=== PATIENT | female | born 1945 | race Caucasian/White ===

== ENCOUNTER → 2019-11-19 09:28 | Outpatient (BNVA) | payer MEDICARE, MEDICAID, SELFPAY | PROVIDERS: Family Provider Family Medicine; PCP Family Medicine; Visit Provider Nurse Practitioner | DX: F41.1 Generalized anxiety disorder (principal); F20.89 Other schizophrenia; F34.1 Dysthymic disorder | CPT/HCPCS: 99213 ==

== ENCOUNTER 2020-01-14 10:36 | Outpatient (CLI) | payer MEDICARE, MEDICAID, SELFPAY | END 2020-01-14 10:37 | disposition home or self-care (01) | LOC: SPT 10:37 | PROVIDERS: Family Provider Family Medicine; PCP Family Medicine; Visit Provider Orthopaedic Surgery | DX: Z46.89 Encounter for fitting and adjustment of other specified devices (principal); M17.12 Unilateral primary osteoarthritis, left knee | CPT/HCPCS: L1812 ==

== ENCOUNTER → 2020-02-23 07:39 | Outpatient (BNVA) | payer MEDICARE, MEDICAID, SELFPAY | PROVIDERS: Family Provider Family Medicine; PCP Family Medicine; Visit Provider Nurse Practitioner | DX: F41.1 Generalized anxiety disorder (principal); F34.1 Dysthymic disorder; F20.89 Other schizophrenia | CPT/HCPCS: 99213 ==

== ENCOUNTER → 2020-05-26 08:42 | Outpatient (BNVA) | payer MEDICARE, MEDICAID, SELFPAY | PROVIDERS: Family Provider Family Medicine; PCP Family Medicine; Visit Provider Nurse Practitioner | DX: F34.1 Dysthymic disorder (principal); F20.89 Other schizophrenia; F41.1 Generalized anxiety disorder; F90.2 Attention-deficit hyperactivity disorder, combined type | CPT/HCPCS: 99213 ==

== ENCOUNTER → 2020-06-21 07:53 | Outpatient (BNVA) | payer MEDICARE, MEDICAID, SELFPAY | PROVIDERS: Family Provider Family Medicine; PCP Family Medicine; Visit Provider Nurse Practitioner | DX: F34.1 Dysthymic disorder (principal); F20.89 Other schizophrenia; F41.1 Generalized anxiety disorder | CPT/HCPCS: 99213 ==

== ENCOUNTER → 2020-10-08 10:03 | Outpatient (BNVA) | payer MEDICARE, MEDICAID, SELFPAY | PROVIDERS: Family Provider Family Medicine; PCP Family Medicine; Visit Provider Nurse Practitioner | DX: F41.1 Generalized anxiety disorder (principal); F20.89 Other schizophrenia; F34.1 Dysthymic disorder | CPT/HCPCS: 99214 ==

== ENCOUNTER → 2020-11-10 10:18 | Outpatient (BNVA) | payer MEDICARE, MEDICAID, SELFPAY | PROVIDERS: Family Provider Family Medicine; PCP Family Medicine; Visit Provider Nurse Practitioner | DX: F41.1 Generalized anxiety disorder (principal); F20.89 Other schizophrenia; F34.1 Dysthymic disorder | CPT/HCPCS: 99214 ==

== ENCOUNTER 2020-11-23 15:23 | Outpatient (CLI) | payer MEDICARE, MEDICAID, SELFPAY ==
--- NOTE | 2020-11-23 | USCV_ITS ---
Muriel Agarwal Age: 75 Gender: F : 1945 Exam Date: 11/23/2020 16:00 Ordering Phys: Hilda Darby MD Technologist: Charissa Cameron Exam Location: [facility] [place] Indication: CHF BP: / HR: 93 Rhythm: Sinus Technical Quality: Poor secondary to COPD MEASUREMENTS (Male / Female) Normal Values 2D ECHO LVOT Diameter 2.0 cm LV Ejection Fraction MOD 2C 36.9 % LV Ejection Fraction 2C AL 32.9 % LA Diameter 3.0 cm M-MODE LV Diastolic Diameter MM 5.3 cm 4.2 - 5.9 / 3.9 - 5.3 cm IVS Diastolic Thickness MM 1.4 cm 0.6 - 1.0 / 0.6 - 0.9 cm LVPW Diastolic Thickness MM 2.2 cm 0.6 - 1.0 / 0.6 - 0.9 cm DOPPLER AV Peak Velocity 110.0 cm/s LVOT Peak Velocity 77.0 cm/s AV Area Cont Eq vti 2.4 cm squared AV Area Cont Eq pk 2.3 cm squared MV Area PHT 5.0 cm squared Mitral E to A Ratio 0.7 MV E' Velocity 36.5 cm/s Mitral E to MV E' Ratio 11.3 Mitral E to LV E' Lateral Ratio 11.1 Mitral E to LV E' Septal Ratio 11.7 FINDINGS Left Ventricle Normal LV size with borderline normal ejection fraction of 50 to 55%. Relative hypokinesia of the septum was noted. Segmental wall motion analysis difficult because of the poor ultrasonic window. Grade I/IV diastolic dysfunction (abnormal relaxation filling pattern), normal to mildly elevated filling pressures. Right Ventricle The right ventricle appears to be of normal size. Possibly normal right ventricular ejection fraction right atrium possibly of normal size. Right Atrium Possibly of normal size Left Atrium Possibly of normal Mitral Valve Thickened mitral valve. Mild mitral annular calcification. Aortic Valve The aortic leaflets could not be visualized well. Possibly no significant stenosis Tricuspid Valve Could not be visualized well Pulmonic Valve Pulmonic valve not well visualized. Pericardium No pericardial effusion. Aorta Normal aortic annulus size. CONCLUSIONS Normal LV size with borderline normal ejection fraction of 50 to 55%. Relative hypokinesia of the septum was noted. Segmental wall motion analysis difficult because of the poor ultrasonic window. Grade I/IV diastolic dysfunction (abnormal relaxation filling pattern), normal to mildly elevated filling pressures. Thickened mitral valve. Mild mitral annular calcification. The aortic leaflets could not be visualized well. Possibly no significant stenosis. There is no pericardial effusion. Technically difficult study because of the poor ultrasonic window. No previous study is available for comparison. Dr Elton Alves MD [facility] (Electronically Signed) Final Date: 23 November 2020 20:21 S
== END 2020-11-23 15:24 | disposition home or self-care (01) ==
LOC: RAD 15:29
PROVIDERS: PCP Family Medicine; Visit Provider Internal Medicine Critical Care Medicine
DX: I50.9 Heart failure, unspecified (principal); I05.9 Rheumatic mitral valve disease, unspecified
CPT/HCPCS: 93306

== ENCOUNTER → 2020-12-07 07:40 | Outpatient (BNVA) | payer MEDICARE, MEDICAID, SELFPAY | PROVIDERS: PCP Family Medicine; Visit Provider Nurse Practitioner | DX: F20.89 Other schizophrenia (principal); F41.1 Generalized anxiety disorder; F34.1 Dysthymic disorder | CPT/HCPCS: 99214 ==

== ENCOUNTER 2021-01-27 19:50 | Inpatient (IN) | payer MEDICARE, MEDICAID, SELFPAY ==
[2021-01-27] VITALS (7 sets, daily range): BP systolic 145–175; BP diastolic 84–96; PULSE 70–93; RESP 16–24; TEMP 36.7; O2SAT 92–96; BMI 38.7
--- NOTE | 2021-01-27 20:18 | XRR_ITS ---
PROCEDURE INFORMATION: Exam: XR Chest Exam date and time: 01/27/2021 8:25 PM Age: 75 years old Clinical indication: Cough and shortness of breath; Additional info: Copd/wheezing TECHNIQUE: Imaging protocol: XR of the chest. Views: 1 view. COMPARISON: No relevant prior studies available. FINDINGS: Lungs: Right infrahilar opacity is noted which may be early pneumonia. Pleural spaces: The left costophrenic angle is partially excluded from the field of view. No pleural effusion or pneumothorax is visualized. Heart/Mediastinum: Unremarkable. No cardiomegaly. Bones/joints: Unremarkable. XR/XR chest 1V portable [id number] IMPRESSION: Possible early right lower lobe pneumonia.
[2021-01-27 20:31] LABS: Basophils % 0.4 %; Eosinophils % 0.4 %; Hematocrit 38.6 % (37.0-47.0); Hemoglobin 13.2 g/dL (11.5-15.3); Lymphocytes # 1.1 10^3/uL (0.8-4.8); Lymphocytes % 12.8 %; Mean Corpuscular HGB Conc 34.2 g/dL (30.0-36.0); Mean Corpuscular Hemoglobin 28.8 pg (28.0-34.0); Mean Corpuscular Volume 84.1 fL (81-99); Mean Platelet Volume 9.1 fL (7.4-10.4); Monocytes # 0.5 10^3/uL (0.2-0.9); Monocytes % 6.3 %; Neutrophils % 79.7 %; Nucleated Red Blood Cells % 0 %; Platelet Count 256 10^3/cmm (130-400); Red Blood Count 4.59 10^6/uL (4.1-5.3); Red Cell Distribution Width 13.8 % (12.1-15.1); White Blood Count 8.5 10^3/uL (4.0-10.0)
[2021-01-27 20:58] LABS: Alanine Aminotransferase 26 U/L (0-33); Albumin Level 3.8 g/dL (3.5-5.2); Alkaline Phosphatase 176 IU/L (35-105); Blood Urea Nitrogen 6 mg/dL (8-23); Calcium 8.5 mg/dL (8.5-10.5); Carbon Dioxide 27 mmol/L (22-29); Chloride 83 mmol/L (98-107); Globulin 2.8 g/dL (1.3-4.6); Glucose 136 mg/dL (65-115); NT Pro B Type Natriuretic Pept 248 pg/mL (0-450); Osmolality Calculated 248 mOsm/kg (285-295); Total Bilirubin 0.3 mg/dL (0.15-1.2); Total Protein 6.6 g/dL (6.6-8.7)
[2021-01-27 21:00] LABS: Anion Gap 13.4 (5-19); Aspartate Amino Transferase 21 U/L (0-32); Potassium 4.4 mmol/L (3.5-5.1)
[2021-01-27 21:01] LABS: Sodium 119 mmol/L (136-145)
--- NOTE | 2021-01-27 21:08 | CTR_ITS ---
PROCEDURE INFORMATION: Exam: CT Head Without Contrast Exam date and time: 01/27/2021 9:09 PM Age: 75 years old Clinical indication: Altered mental status/memory loss; Patient HX: AMS. Hyponatremic. ; Additional info: Hyponatremia TECHNIQUE: Imaging protocol: Computed tomography of the head without contrast. Radiation optimization: All CT scans at this facility use at least one of these dose optimization techniques: automated exposure control; mA and/or kV adjustment per patient size (includes targeted exams where dose is matched to clinical indication); or iterative reconstruction. COMPARISON: CT head wo con* [id number] 10/07/2017 3:05 AM RADIATION DOSE METRICS: Total DLP (mGy-cm): 926.44 FINDINGS: Brain: Mild atrophy and mild white matter chronic microvascular changes are noted. No hemorrhage or evidence of acute infarction is seen. Cerebral ventricles: No ventriculomegaly. Bones/joints: Unremarkable. No acute fracture. Paranasal sinuses: Left maxillary sinusitis is noted. Mastoid air cells: Visualized mastoid air cells are well aerated. Soft tissues: Unremarkable. Other findings: Bilateral orbital veins are distended, which is nonspecific. The carotid siphons a calcified. No cavernous sinus abnormality is visualized CT/CT head wo con* [id number] IMPRESSION: No fracture acute intracranial abnormality. Mild sinusitis. Radiation Dose CTDIVOL = (mGy): DLP = 926.44 (mGy-cm)
--- NOTE | 2021-01-27 21:23 | PC.NURSE ---
patient states she refuses all care at this time stating she believes we are trying to kill her and that we just want her gone . patient is mildly agitated and refuses blood draws and medication administration from nurse. HCP informed of situation with patient.
--- NOTE | 2021-01-27 21:25 | PC.NURSE ---
patient refuses to give nurse urine sample at this time.
[2021-01-27] MEDS: ziprasidone 20 mg/mL SDV 10 MG IM (22:41)
[2021-01-27] MEDS: water for injection-sterile 10 ML (22:42)
--- NOTE | 2021-01-27 23:14 | W.ED.GENADLT ---
HPI - General Adult General: Chief complaint: General Medical Stated complaint: ABNORMAL LABS Time Seen by Provider: 01/27/21 20:08 History of Present Illness: HPI narrative: The patient is a 75-year-old female sent from [place] for evaluation of abnormal labs. They were called by her primary care physician and told that she had hyponatremia. In her paperwork on January 20 her sodium was 123. She initially allowed us to draw blood which reveals a sodium of 119. She has a history of paranoid schizophrenia and is telling us that we are not doctors or nurses and this is not a hospital. She is delirious and acting bizarrely. I believe she is not competent to make her own medical decisions. I discussed with Dr. De León who agrees Severity: severe Associated symptoms: Reports no associated symptoms and dyspnea (Chronic short of breath); Deny chest pain, confusion, headache(s), rash or palpitations Review of Systems General: Reports: 10 or more systems reviewed and unremarkable except in HPI and below Const: Denies: fatigue Eyes: Denies: change in vision, blurry vision or eye redness ENMT: Denies: throat pain, swelling of lips/tongue, ear or mastoid pain or nasal congestion Card: Denies: chest pain, palpitations, irregular heart rhythm, edema, dyspnea on exertion or orthopnea Resp: Reports: dyspnea (Chronic short of breath) and wheezing; Denies: productive cough or non-productive cough GI: Denies: abdominal pain, diarrhea or GI cramping : Denies: flank pain, difficulty voiding, urinary frequency or urinary urgency Musc: Denies: neck pain, back pain, extremity pain, joint pain, joint redness, limited range of motion or muscle weakness Skin/Breast: Denies: rash, pruritus, erythema, skin pain or skin tenderness Neuro: Denies: headache(s), numbness in extremities, weakness in extremities, sensory changes, difficulty walking, dizziness, confusion or Slurred speech present Psych: Denies: anxiety or depression Endo: Denies: polyuria All/Imm: Denies: urticaria, throat swelling or tongue swelling PFSH ED PFSH: Medical History (Updated 02/02/21 @ 00:01 by ) Age related osteoporosis Bipolar 1 disorder Chronic hyponatremia COPD (chronic obstructive pulmonary disease) Degenerative arthritis of knee Dysphagia Dysthymic disorder Generalized anxiety disorder Neuritis Other schizophrenia Schizophrenia Social History Smoking and tobacco status: former smoker Quit status (tobacco): has quit using tobacco Year quit tobacco: 2004 Former quit date comment: 0.5 ppd x 45 Years Second hand smoke exposure: Yes Smoking risk assessment/counseling performed?: No Alcohol intake: never Desire information about alcohol rehabilitation?: No Counseling given: No Desire information about substance/drug rehabilitation?: No Counseling given: No Caregiver/support person: Yes Lives independently: No Housing: Group Home Marital status: Unknown Current occupational status: retired History of recent travel: No Current gender identity: Female Physical Exam Const: COMMON NORMALS: patient oriented x3 and alert ORIENTATION/CONSCIOUSNESS: Yes oriented to person and Yes oriented to place OTHER: She is delirious and has paranoid schizophrenia. She does not believe that I am a doctor. She does not believe the staff are nurses. She has inappropriate schizophrenic paranoid believes that we are trying to kill her. I do not believe she is competent to make her own medical decisions. HENMT: COMMON NORMALS: normocephalic, external ears normal and Normal external nose present HEAD & SCALP: normal to inspection and normocephalic NOSE: Normal external nose present EXTERNAL EAR: Yes external ears normal MOUTH: Normal oral and palatal mucosa present THROAT: posterior oropharynx normal Eye: COMMON NORMALS: Equal, round and reactive pupils present and EOMs intact bilaterally GENERAL EYE: appearance normal, both eyes and all related structures PUPIL: Yes Equal, round and reactive pupils present Neck/C-Spine: COMMON NORMALS: full ROM, no lymphadenopathy, no meningeal signs and no JVD GENERAL: Yes normal visual inspection Lymph: LYMPHATIC: no lymphadenopathy noted Chest: COMMONS NORMALS: normal inspection of the chest and normal palpation of entire chest wall Resp: COMMON NORMALS: normal respiratory effort, No retractions, No use of accessory muscles and percussion normal EFFORT & INSPECTION: Yes able to speak in complete sentences AUSCULTATION: wheezes and diminished lung sounds PERCUSSION: percussion normal Cardio: COMMON NORMALS: no JVD, regular rate, regular rhythm, S1 normal heart sound present, S2 normal heart sound present and Peripheral pulses 2+ throughout RATE: regular rate RHYTHM: regular rhythm HEART SOUNDS: S1 normal heart sound present and S2 normal heart sound present PERIPHERAL PULSES: Peripheral pulses 2+ throughout GI: COMMON NORMALS: Normal to inspection, nondistended, normoactive bowel sounds present, Soft to palpation, non-tender and no masses INSPECTION: Yes normal to inspection PALPATION: Yes Soft to palpation : COMMON NORMALS: Yes no CVA tenderness BLADDER/KIDNEY EXAM: Yes no CVA tenderness Back/Pelvis: COMMON NORMALS: no CVA tenderness, thoracic and lumbar spine normal to inspection, no thoracic nor lumbar tenderness and thoraco-lumbar ROM normal Extremity: COMMON NORMALS: normal to inspection, full ROM, capillary refill normal, no joint enlargement and no pedal edema GENERAL: Yes normal exam except as noted Neuro: COMMON NORMALS: patient oriented x3, CN's II-XII intact bilaterally, moves all extremities, no focal motor deficits, no sensory deficits noted and gait normal SENSORIUM/ORIENTATION: Yes alert, Yes oriented to person and Yes oriented to place MENINGEAL SIGNS: Yes no meningeal signs Psych: COMMON NORMALS: speech normal APPEARANCE: Yes grossly normal ATTITUDE: Yes paranoid SPEECH: Yes normal speech MOOD & AFFECT: Yes irritable and Yes hostile affect THOUGHT PROCESS: confused and Illogical thought process present THOUGHT CONTENT: Yes delusions ATTENTION/CONCENTRATION: Yes attention grossly impaired and Yes concentration grossly impaired INSIGHT: Poor insight present (Psych) JUDGEMENT: Poor judgement present (Psych) OTHER: She is exhibiting symptoms of delirium and paranoid schizophrenia. She is fearful and not trusting. She does not believe I am a doctor or the staff are nurses and that we are trying to kill her. I believe she is not competent to make her own medical decisions. Dr. De León agrees. Skin: COMMON NORMALS: no rashes or lesions noted GENERAL SKIN EXAM: no rashes or lesions noted Course Vital Signs: Vital signs: Vital Signs Temperature 98.8 F 02/01/21 11:25 Pulse Rate 104 H 02/01/21 11:25 Respiratory Rate 18 02/01/21 11:25 Blood Pressure 121/63 02/01/21 11:25 Pulse Oximetry 98 02/01/21 11:25 MDM - General Adult MDM Narrative: Medical decision making narrative: Patient came to the ER from [place] after having abnormal lab values as an outpatient. Sodium here is 119. She has a history of chronic paranoid schizophrenia. She is uncooperative with staff and exhibiting symptoms of delirium. Her schizophrenia is clearly active here as she does not believe that we are paramedical aide and that we are trying to kill her. I do not believe she is competent to make her own medical decisions nor refuse care. She was given Geodon 10 mg intramuscularly with good effect. Lab Data: Labs: Lab Results 01/27/21 01/27/21 Range/Units 20:17 20:17 WBC 8.5 (4.0-10.0) 10^3/ uL RBC 4.59 (4.1-5.3) 10^6/u L Hgb 13.2 (11.5-15.3) g/dL Hct 38.6 (37.0-47.0) % MCV 84.1 (81-99) fL MCH 28.8 (28.0-34.0) pg MCHC 34.2 (30.0-36.0) g/dL RDW 13.8 (12.1-15.1) % Plt Count 256 (130-400) 10^3/c mm MPV 9.1 (7.4-10.4) fL Neut % (Auto) 79.7 % Lymph % (Auto) 12.8 % Grimes % (Auto) 6.3 % Eos % (Auto) 0.4 % Baso % (Auto) 0.4 % Neut # (Auto) 6.80 (1.8-7.7) 10^3/u L Lymph # (Auto) 1.1 (0.8-4.8) 10^3/u L Grimes # (Auto) 0.5 (0.2-0.9) 10^3/u L Eos # (Auto) 0.0 (0.0-0.8) 10^3/u L Baso # (Auto) 0.0 (0.0-0.1) 10^3/u L Nucleated RBC % (a uto) 0 % Nucleated RBCs # 0.0 /100WBC Sodium 119 L* (136-145) mmol/L Potassium 4.4 (3.5-5.1) mmol/L Chloride 83 L (98-107) mmol/L Carbon Dioxide 27 (22-29) mmol/L Anion Gap 13.4 (5-19) BUN 6 L (8-23) mg/dL Creatinine 0.5 (0.5-0.9) mg/dL GFR Calculation Not Reportable Glucose 136 H (65-115) mg/dL Calculated Osmolal ity 248 L (285-295) mOsm/k g Calcium 8.5 (8.5-10.5) mg/dL Total Bilirubin 0.3 (0.15-1.2) mg/dL AST 21 (0-32) U/L ALT 26 (0-33) U/L Alkaline Phosphata se 176 H (35-105) IU/L NT-Pro-B Natriuret Pep 248 (0-450) pg/mL Total Protein 6.6 (6.6-8.7) g/dL Albumin 3.8 (3.5-5.2) g/dL Globulin 2.8 (1.3-4.6) g/dL Discharge Plan Discharge Patient Disposition: Admitted As Inpatient Admit Provider: Haleigh Dumont Clinical Impression: Acute hyponatremia Condition: Stable Discharge Diet: Regular Discharge Activity: Resume usual activity Coding Level of Care Code ED [employer] Consultant for [employer] Fwd Exam Comprehensive
[2021-01-27] MEDS: sodium chloride 0.9% 1,000 ML 999 ML IV (23:28)
--- NOTE | 2021-01-27 23:30 | PC.NURSE ---
patient is being cooperative with nursing staff allowing medications and vitals to be taken.
[2021-01-28] VITALS (58 sets, daily range): BP systolic 106–177; BP diastolic 60–124; PULSE 66–106; RESP 15–33; TEMP 36.6–36.7; O2SAT 75–100
--- NOTE | 2021-01-28 00:36 | P.HP_ITS ---
Providers/Chief Complaint Admitting Physician: Haleigh Dumont MD Primary Care Provider: Randall Solitario MD Chief Complaint: ABNORMAL LABS History of Present Illness Muriel Agarwal is a 75 year old female sent from [facility] after being found to have abnormal sodium level on routine lab test. Patient unable to provide much information, history obtained by talking to [place] staff. Patient has a h/o schizophenia, normally she is alert, awke and oriented, however has some pa ranoid ideation. Since the past few days, she has been acting more paranoid than usual, tougher to calm and re orient. Labs were routinely checked this morning and Na was at 123, previously Na numbers at 132 from may 2020, 131 from november 2019. [place] [facility] [place] 126-133 from [place], attributed at the time to dehydration vs SIADH in the setting of a LLL pneumonia. In the ER Na noted to be at 119. Patient was with hyperactive delirium in the ER, cursing at ER staff, received Geodon to enable CT head, at time of my assessment she is more calm. Able to tell me her correct name , and the fact that she lives in a [facility]. Denies any complaints, when asked about her coughing states she has been coughing for years . Does endorse feeling SOB, but states this is chronic too. I am not certain she is a reliable historian. per [place] staff, she has not had a fever, denied any chest pain, abdominal pain, cough, nausea, vomtoing or diarrhea. Review of Systems General: Reports: ROS unobtainable due to medical condition Medications/Allergies Home Medications Medication Instructions Recorded Confirmed Last Taken Type acetaminophen 325 mg capsule 650 mg PO TID@,, PRN cap 11/03/19 01/27/21 01/27/21 History aspirin 81 mg tablet,delayed 81 mg PO DAILY@0800 11/03/19 01/27/21 01/27/21 History release benztropine 0.5 mg tablet 0.5 mg PO BID@11/03/19 01/27/21 01/27/21 History bisacodyl 10 mg rectal suppository 10 mg DC DAILY PRN 11/03/19 01/27/21 Unknown History diclofenac sodium 1 % topical gel 2 gm TOPICAL TID@,,20 0201/27/21 01/27/21 History donepezil 10 mg tablet 10 mg PO DAILY@0800 11/03/19 01/27/21 01/27/21 History enema bag, disposable #50 each 11/03/19 01/27/21 Unknown History gabapentin 300 mg capsule 300 mg PO BID@08,20 11/03/19 01/27/21 01/27/21 History guaifenesin 100 mg/5 mL oral liquid 200 mg PO Q4H PRN 11/03/19 01/27/21 Unknown History hydroxyzine HCl 25 mg tablet 25 mg PO TID PRN 11/03/19 01/27/21 01/27/21 History lactulose 20 gram/30 mL oral 40 gm PO BID@08,20 PRN ml 11/03/19 01/27/21 01/27/21 History solution loratadine 10 mg tablet 10 mg PO DAILY@0800 11/03/19 01/27/21 01/27/21 History magnesium hydroxide 400 mg/5 mL 30 ml PO DAILY PRN ml 11/03/19 01/27/21 Unknown History oral suspension montelukast 10 mg tablet 10 mg PO DAILY@0800 11/03/19 01/27/21 01/27/21 History multivitamin 1 tab PO DAILY@0800 11/03/19 01/27/21 01/27/21 History pantoprazole 40 mg tablet,delayed 40 mg PO DAILY@0800 11/03/19 01/27/21 01/27/21 History release sennosides 8.6 mg capsule 8.6 mg PO BID@08,20 PRN 11/03/19 01/27/21 01/27/21 History sucralfate 1 gram tablet 1 gm PO BID@0800,199911/03/19 01/27/21 01/27/21 History tramadol 50 mg tablet 50 mg PO Q6H PRN 11/03/19 01/27/21 01/27/21 14:00 History venlafaxine 150 mg tablet,extended 150 mg PO DAILY@0800 11/03/19 01/27/21 01/27/21 History release 24 hr carbamazepine 100 mg 100 mg PO BID@08,20 09/28/20 01/27/21 01/27/21 History capsule,extended release [id number] potassium chloride 20 mEq 20 meq PO DAILY@0800 09/28/20 01/27/21 01/27/21 History tablet,extended release furosemide 20 mg tablet 20 mg PO DAILY@0800 tab 09/29/20 01/27/21 01/27/21 History ipratropium 0.5 mg-albuterol 3 mg 3 ml INHALATION Q6H #360 ml 09/29/20 01/27/21 01/27/21 Rx (2.5 mg base)/3 mL nebulization soln buspirone 7.5 mg tablet 7.5 mg PO BID@08,20 11/10/20 01/27/21 01/27/21 History roflumilast 500 mcg tablet 500 mcg PO DAILY@0800 11/10/20 01/27/21 01/27/21 History aripiprazole 10 mg tablet 10 mg PO DAILY@0800 12/07/20 01/27/21 01/27/21 History clonazepam 0.5 mg tablet 0.5 mg PO BID@08,20 12/07/20 01/27/21 01/27/21 History spironolactone 25 mg tablet 25 mg PO BID@08,20 12/07/20 01/27/21 01/27/21 H istory Enema Disposable 19 g DC DAILY PRN 01/27/21 01/27/21 Unknown History Pulmicort 0.5 mg INHALATION BID@08,20 01/27/21 01/27/21 01/27/21 History albuterol sulfate [ProAir HFA] 2 puff INHALATION 6XD PRN 01/27/21 01/27/21 Unknown History carbamide peroxide [Debrox] 5 drp OTIC (EAR) TID PRN 01/27/21 01/27/21 Unknown History nystatin 1 applic TOPICAL BID@08,20 01/27/21 01/27/21 01/27/21 History phenol [Throat [place]] See Rx Instructions .ROUTE .COMPLEX 01/27/21 01/27/21 Unknown History Allergies Allergy/AdvReac Type Severity Reaction Status Date / Time No Known Allergies Allergy Verified 12/09/20 11:58 PFSH Acute PFSH: Medical History (Updated 01/28/21 @ 01:01 by Haleigh Dumont MD) Age related osteoporosis Bipolar 1 disorder Degenerative arthritis of knee Dysphagia Dysthymic disorder Generalized anxiety disorder Neuritis Other schizophrenia Schizophrenia Social History Smoking and tobacco status: former smoker Quit status (tobacco): has quit using tobacco Year quit tobacco: 2004 Former quit date comment: 0.5 ppd x 45 Years Second hand smoke exposure: Yes Smoking risk assessment/counseling performed?: No Alcohol intake: never Desire information about alcohol rehabilitation?: No Counseling given: No Desire information about substance/drug rehabilitation?: No Counseling given: No Caregiver/support person: Yes Lives independently: No Housing: Long Term Marital status: Unknown Current occupational status: retired History of recent travel: No Current gender identity: Female Vitals/I&O/Wt Last Vital Signs Temp 97.9 F 01/28/21 00:33 Pulse 79 01/28/21 00:33 Resp 22 H 01/28/21 00:33 BP 177/124 01/28/21 00:33 Pulse Ox 100 01/28/21 00:33 01/27/21 01/27/21 01/28/21 14:59 22:59 06:59 Intake Total 1.2 / 1.2 Balance 1.2 / 1.2 Weight last 48 hrs Weight 108.862 kg Physical Exam Narrative: EXAM NARRATIVE: General: No acute distress, AO x2-3 HEENT: PERRLA, pupils bilaterally equal and reactive, pallors not present Chest: B/L wheezing to auscultation , equal good air entry bilaterally CVS: S1-S2 regular, no murmurs, no tachycardia, no gallops, no rubs Abdomen: Soft, nontender, no organomegaly, bowel sounds present Neuro: No focal deficits, no facial deformity, AO x3, moves all extremities in bed Extremities: No edema, clubbing Data : 01/27/21 20:17 01/27/21 20:17 Attestation for Other Data: I personally reviewed and interpreted the following: Other data: Laboratory Results WBC 8.5 10^3/uL (4.0-10.0) 01/27/21 20:17 RBC 4.59 10^6/uL (4.1-5.3) 01/27/21 20:17 Hgb 13.2 g/dL (11.5-15.3) 01/27/21 20:17 Hct 38.6 % (37.0-47.0) 01/27/21 20:17 MCV 84.1 fL (81-99) 01/27/21 20:17 MCH 28.8 pg (28.0-34.0) 01/27/21 20:17 MCHC 34.2 g/dL (30.0-36.0) 01/27/21 20:17 RDW 13.8 % (12.1-15.1) 01/27/21 20:17 Plt Count 256 10^3/cmm (130-400) 01/27/21 20:17 MPV 9.1 fL (7.4-10.4) 01/27/21 20:17 Neut % (Auto) 79.7 % 01/27/21 20:17 Lymph % (Auto) 12.8 % 01/27/21 20:17 [place] % (Auto) 6.3 % 01/27/21 20:17 Eos % (Auto) 0.4 % 01/27/21 20:17 Baso % (Auto) 0.4 % 01/27/21 20:17 Neut # (Auto) 6.80 10^3/uL (1.8-7.7) 01/27/21 20:17 Lymph # (Auto) 1.1 10^3/uL (0.8-4.8) 01/27/21 20:17 [place] # (Auto) 0.5 10^3/uL (0.2-0.9) 01/27/21 20:17 Eos # (Auto) 0.0 10^3/uL (0.0-0.8) 01/27/21 20:17 Baso # (Auto) 0.0 10^3/uL (0.0-0.1) 01/27/21 20:17 Nucleated RBC % (auto) 0 % 01/27/21 20:17 Nucleated RBCs # 0.0 /100WBC 01/27/21 20:17 Sodium 119 mmol/L (136-145) L* 01/27/21 20:17 Potassium 4.4 mmol/L (3.5-5.1) 01/27/21 20:17 Chloride 83 mmol/L (98-107) L 01/27/21 20:17 Carbon Dioxide 27 mmol/L (22-29) 01/27/21 20:17 Anion Gap 13.4 (5-19) 01/27/21 20:17 BUN 6 mg/dL (8-23) L 01/27/21 20:17 Creatinine 0.5 mg/dL (0.5-0.9) 01/27/21 20:17 GFR Calculation Not Reportable 01/27/21 20:17 Glucose 136 mg/dL (65-115) H 01/27/21 20:17 Calculated Osmolality 248 mOsm/kg (285-295) L 01/27/21 20:17 Lactate Cancelled 01/27/21 Unknown Calcium 8.5 mg/dL (8.5-10.5) 01/27/21 20:17 Total Bilirubin 0.3 mg/dL (0.15-1.2) 01/27/21 20:17 AST 21 U/L (0-32) 01/27/21 20:17 ALT 26 U/L (0-33) 01/27/21 20:17 Alkaline Phosphatase 176 IU/L (35-105) H 01/27/21 20:17 NT-Pro-B Natriuret Pep 248 pg/mL (0-450) 01/27/21 20:17 Total Protein 6.6 g/dL (6.6-8.7) 01/27/21 20:17 Albumin 3.8 g/dL (3.5-5.2) 01/27/21 20:17 Globulin 2.8 g/dL (1.3-4.6) 01/27/21 20:17 Impressions Chest X-Ray 01/27/21 20:18 IMPRESSION: Possible early right lower lobe pneumonia. Head CT 01/27/21 21:08 IMPRESSION: No fracture acute intracranial abnormality. Mild sinusitis. 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 Check serum osm, urine osm, urine lytes Fluid restriction 1200 cc/day Multiple potentil medications contiburing incl venlafaxine, carbamazepine Hold venlafaxine for now, continuing carbamazepine to reduce risk of breakthrough seizures check TSH, cortisol level Appears to be more chronic Per NH staff, mantation not too different than baseline though paranoia more pronounced Status: Acute (2) Pneumonia: RLL pneumonia Patient noted to be coughing, wheezing on exam empric CTX and azithromycin for now swallow evaluation, suspect aspiration check legioneall Ag given concomitant hyponatremia Status: Acute Qualifiers: Pneumonia type: due to unspecified organism Laterality: right Lung location: lower lobe of lung Qualified Code(s): J18.9 - Pneumonia, unspecified organism (3) COPD (chronic obstructive pulmonary disease): not currently exacerbated duonebs q4h joel, pulmicort 0.5 BID Hold off on steroids for now Status: Acute Qualifiers: COPD type: chronic bronchitis Chronic bronchitis type: unspecified Qualified Code(s): J42 - Unspecified chronic bronchitis Additional A&P Information Bipolar disorder, schizophrenia: continue medications except venlafaxine, hyperactive, agitated s/o geodon x 1 today Calmer at time of my assessment, oriented x 2-3 DNR/DNI DVT ppx: lovenox Attestations Medical Necessity Statement*: anticipate >2MN for evlaution and management of hyponatremia, iv abx for pneumonia Coding Level of Care Code Acute 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
--- NOTE | 2021-01-28 02:30 | ECG_ITS ---
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 Measurements Intervals [place] Rate: 84 P: 77 MT: 219 QRS: 17 QRSD: 82 T: 29 QT: 349 QTc: 413 Interpretive Statements SINUS RHYTHM WITH FIRST DEGREE AV BLOCK WITH OCCASIONAL SUPRAVENTRICULAR PREMATURE COMPLEXES Compared to ECG 04/15/2019 09:23:55 Sinus arrhythmia no longer present Electronically Signed On 01-28-2021 22:00:59 CDT by Frandy Piper M.D. [id number]
[2021-01-28] MEDS: cefTRIAXone 1,000 MG in sodium chloride 0.9% (plus) 50 ML 100 MG IV (03:31)
[2021-01-28 04:15] LABS: D Dimer 0.57 ug/mIFEU (0-0.59)
[2021-01-28 04:35] LABS: Procalcitonin 0.06 ng/mL (0-0.5); Thyroid Stimulating Hormone 1.12 uIU/mL (0.27-4.20)
[2021-01-28 04:46] LABS: Alanine Aminotransferase 23 U/L (0-33); Albumin Level 3.5 g/dL (3.5-5.2); Alkaline Phosphatase 157 IU/L (35-105); Aspartate Amino Transferase 15 U/L (0-32); Blood Urea Nitrogen 5 mg/dL (8-23); Calcium 8.3 mg/dL (8.5-10.5); Carbon Dioxide 30 mmol/L (22-29); Chloride 91 mmol/L (98-107); Globulin 2.8 g/dL (1.3-4.6); Glucose 105 mg/dL (65-115); Osmolality Calculated 262 mOsm/kg (285-295); Sodium 127 mmol/L (136-145); Total Bilirubin 0.3 mg/dL (0.15-1.2); Total Protein 6.3 g/dL (6.6-8.7)
[2021-01-28 05:03] LABS: Cortisol Random 10.57 ug/dL (2.47-19.5)
[2021-01-28] MEDS: ipratropium-albuterol 3 mL Neb INHALATION (08:03)
[2021-01-28] MEDS: budesonide 0.5 mg/2 mL Neb INHALATION (08:03)
[2021-01-28] MEDS: azithromycin 250 mg Tablet 500 MG PO (08:43)
[2021-01-28] MEDS: carBAMazepine XR (12 HR) 100 mg Tablet PO ×2 (08:43→19:40)
[2021-01-28] MEDS: CLONazepam 0.5 mg Tablet PO (08:43)
[2021-01-28] MEDS: sucralfate 1 gm Tablet PO ×2 (08:43→19:40)
[2021-01-28] MEDS: benztropine 1 mg Tablet 0.5 MG PO ×2 (08:43→19:40)
[2021-01-28] MEDS: aspirin 81 mg EC Tablet PO (08:43)
[2021-01-28] MEDS: ARIPiprazole 10 mg Tablet PO (08:43)
[2021-01-28] MEDS: donepezil 5 MG Tablet 10 MG PO (08:43)
[2021-01-28] MEDS: montelukast sodium 10 mg Tablet PO (08:43)
[2021-01-28] MEDS: roflumilast 500 mcg Tablet PO (08:43)
[2021-01-28] MEDS: FUROsemide 20 mg Tablet PO (08:44)
[2021-01-28] MEDS: pantoprazole DR 40 mg Tablet PO (08:44)
[2021-01-28] MEDS: BuSPIRONE 10 mg Tablet 7.5 MG PO ×2 (08:44→19:40)
[2021-01-28] MEDS: spironolactone 25 mg Tablet PO ×2 (08:44→19:40)
[2021-01-28] MEDS: TRAMadol 50 mg Tablet PO ×3 (08:48→20:11)
--- NOTE | 2021-01-28 12:36 | P.PN_ITS ---
Subjective Subjective: Interval history: States she is doing all right . Not bothered by anything in particular. Denies any pain. Does not remember where she is. Knows the year is 2020. Takes a break from eating her breakfast when asked to allow to be examined. Vitals/I&O/Wt Last Vital Signs Temp 98.1 F 01/28/21 12:00 Pulse 101 H 01/28/21 12:00 Resp 18 01/28/21 12:00 BP 136/98 01/28/21 12:00 Pulse Ox 94 01/28/21 12:00 01/27/21 01/28/21 01/28/21 22:59 06:59 14:59 Intake Total 1.2 / 1.2 1050 / 1051.2 Balance 1.2 / 1.2 1050 / 1051.2 Weight last 48 hrs Weight 108.862 kg Physical Exam Const: COMMON NORMALS: no acute distress ORIENTATION/CONSCIOUSNESS: Yes awake, Yes oriented to person and Yes oriented to time; not oriented to place (knows is in [place]) HENMT: COMMON NORMALS: oropharynx normal Neck/C-Spine: COMMON NORMALS: no JVD Resp: COMMON NORMALS: normal respiratory effort AUSCULTATION: crackles (bases) and diminished lung sounds Cardio: COMMON NORMALS: no JVD, regular rhythm, S1 normal heart sound present, S2 normal heart sound present and No murmurs present (Cardio) RHYTHM: regular rhythm HEART SOUNDS: S1 normal heart sound present and S2 normal heart sound present GI: COMMON NORMALS: Normal to inspection, nondistended, normoactive bowel sounds present, Soft to palpation and non-tender PALPATION: Yes Soft to palpation Extremity: COMMON NORMALS: no joint enlargement and no pedal edema Neuro: COMMON NORMALS: moves all extremities SENSORIUM/ORIENTATION: Yes o riented to person, No oriented to place (knows is in [place]) and Yes oriented to time Skin: COMMON NORMALS: no rashes or lesions noted GENERAL SKIN EXAM: no rashes or lesions noted Urinary Catheter Management^: Riojas: Cath Placed During This Visit: yes Urinary Catheter Date of Insertion: 01/28/21 Urinary Catheter Time of Insertion: 06:12 Data : 01/27/21 20:17 01/28/21 03:16 A&P Assessment and plan (1) Chronic hyponatremia: Na up to 127 this morning. Recheck sodium. D[facility]w pharmacy[facility] Sister says she drinks too much fluid. She used to have to limited to when they lived together. May need to make sure has fluid restriction after discharge. Monitor intake. Fluid restriction 1200 cc/day Acute on chronic hyponatremia possibly secondary to acute pulmonary condition. Multiple medications could contribute incl aripiprazole, venlafaxine, carbamazepine Hold venlafaxine for now, continuing carbamazepine to reduce risk of breakthr ough seizures Normal TSH, cortisol level normal, but perhaps lower than may be expected. Blood pressure stable. Sodium is coming up, for now hold off stress dose steroids. In case persistence or other concerning symptoms consider ACTH stim test. Status: Acute (2) Pneumonia: Wheezing, diminished air entry, crackles at bases. Continue antibiotics. Swallow evaluation. Follow urine antigens. Sputum culture. RLL pneumonia Status: Acute Qualifiers: Pneumonia type: due to unspecified organism Laterality: right Lung location: lower lobe of lung Qualified Code(s): J18.9 - Pneumonia, unspecified organism (3) COPD (chronic obstructive pulmonary disease): Possible exacerbation with wheezing, coughing. Continue breathing treatments. Antibiotics. Duonebs q4h joel, pulmicort 0.5 BID Monitor for improvement/change in symptoms, consider addition of steroid. Status: Acute Qualifiers: COPD type: chronic bronchitis Chronic bronchitis type: unspecified Qualified Code(s): J42 - Unspecified chronic bronchitis Additional A&P Information Bipolar disorder, schizophrenia: Continue Abilify, carbamazepine, buspirone, Cogentin, Aricept. Venlafaxine on hold. Mental status appears to be better. Was seen by her sister today. DNR/DNI DVT ppx: lovenox Attestations Medical Necessity Statement*: Continue admission for assessment management of acute on chronic hyponatremia, pneumonia in setting of underlying COPD, recently worsened paranoid ideation with schizophrenia on a number of psychiatric medications which may contribute to hyponatremia. Coding Level of Care Code Acute Home Health Care Coordinator for g Fwd Diagnoses Chronic hyponatremia E87.1 Pneumonia J18.9 Pneumonia type: due to unspecified organism Laterality: right Lung location: lower lobe of lung COPD (chronic obstructive pulmonary disease) J42 COPD type: chronic bronchitis Chronic bronchitis type: unspecified
[2021-01-28 13:25] LABS: Potassium, Radom Urine 19 mmol/L; Urine Random Chloride 108 mmol/L; Urine Random Sodium 125 mmol/L
[2021-01-28 14:05] LABS: Sodium 128 mmol/L (136-145)
[2021-01-28] MEDS: acetaminophen 325 mg Tablet 650 MG PO ×2 (14:12→20:11)
[2021-01-28] MEDS: ziprasidone 20 mg/mL SDV 10 MG IM (15:12)
[2021-01-28] MEDS: dextrose 5% 250 ML IV (19:40)
[2021-01-28] MEDS: diclofenac 1% Topical Gel 100 gm 4 APPLIC TOPICAL (19:41)
[2021-01-29] VITALS (18 sets, daily range): BP systolic 117–162; BP diastolic 54–110; PULSE 72–105; RESP 16–21; TEMP 36.6–36.8; O2SAT 93–97
[2021-01-29] MEDS: cefTRIAXone 1,000 MG in dextrose 5 % 100 ML 200 MG IV (03:10)
[2021-01-29 04:07] LABS: Basophils % 0.5 %; Eosinophils % 0.7 %; Hematocrit 38.3 % (37.0-47.0); Hemoglobin 12.9 g/dL (11.5-15.3); Lymphocytes % 16.3 %; Mean Corpuscular HGB Conc 33.7 g/dL (30.0-36.0); Mean Corpuscular Hemoglobin 28.9 pg (28.0-34.0); Mean Corpuscular Volume 85.7 fL (81-99); Mean Platelet Volume 9.1 fL (7.4-10.4); Monocytes # 0.5 10^3/uL (0.2-0.9); Monocytes % 8.5 %; Neutrophils # 4.43 10^3/uL (1.8-7.7); Neutrophils % 73.7 %; Nucleated Red Blood Cells % 0 %; Platelet Count 215 10^3/cmm (130-400); Red Blood Count 4.47 10^6/uL (4.1-5.3)
[2021-01-29] MEDS: ondansetron 2 mg/ML SDV 2 mL 4 MG IVP ×2 (04:24→08:25)
--- NOTE | 2021-01-29 06:12 | PC.NURSE ---
Pt summary She slept well at the beginning of the shift, woke up pleasant, cooperative and oriented x4.
[2021-01-29 06:22] LABS: Add Urine Microscopic? YES; Bilirubin Urine 1+ (Negative); Blood Urine 2+ (Negative); Glucose Urine UA Norm (Normal); Ketones Urine Negative (Negative); Leukocyte Esterase Urine 1+ (Negative); Nitrate Urine Negative (Negative); Protein Urine 1+ (Negative); Urine Appearance Clear (CLEAR); Urine Color Yellow (Yellow); Urobilinogen Urine 1 mg/dL (Negative); pH Urine 6.5 (5-7)
[2021-01-29 06:25] LABS: Bacteria Urine 1+ /hpf; RBC Urine 40-50 /hpf (0-2); Squamous Epithelial Cell Urine 0-4 /hpf (0-5); WBC Urine 15-25 /hpf (0-5)
[2021-01-29 06:26] LABS: Add Urine Culture? Yes; Hyaline Casts Urine 0-4 /lpf; Mucus Urine 1+ /hpf
[2021-01-29 06:52] LABS: Anion Gap 10.8 (5-19); Blood Urea Nitrogen 7 mg/dL (8-23); Calcium 8.4 mg/dL (8.5-10.5); Carbon Dioxide 31 mmol/L (22-29); Chloride 91 mmol/L (98-107); Glucose 124 mg/dL (65-115); Osmolality Calculated 267 mOsm/kg (285-295); Potassium 3.8 mmol/L (3.5-5.1); Sodium 129 mmol/L (136-145)
[2021-01-29] MEDS: budesonide 0.5 mg/2 mL Neb INHALATION ×2 (07:44→20:08)
[2021-01-29] MEDS: ipratropium-albuterol 3 mL Neb INHALATION ×2 (07:44→20:08)
--- NOTE | 2021-01-29 08:03 | XRR_ITS ---
PROCEDURE INFORMATION: Exam: XR Chest Exam date and time: 01/29/2021 8:31 AM Age: 75 years old Clinical indication: Other: Hypoxia; Additional info: Hypox TECHNIQUE: Imaging protocol: XR of the chest. Views: 1 view. COMPARISON: CR (CHEST, ) 01/27/2021 8:25 PM FINDINGS: Lungs: Mild left basilar atelectasis and/or pneumonia. Mild peribronchial thickening and/or mild perihilar linear markings consistent with bronchitis and/or viral pneumonitis and/or reactive airway disease and/or atypical pulmonary interstitial edema. Mild right perihilar and medial right basilar bronchopneumonia. Pleural spaces: Unremarkable. No pleural effusion. No pneumothorax. Heart/Mediastinum: Unremarkable. No cardiomegaly. Bones/joints: Unremarkable. Other findings: Patient rotation to the left. XR/XR chest 1V portable [id number] IMPRESSION: 1. Mild left basilar atelectasis and/or pneumonia. 2. Mild peribronchial thickening and/or mild perihilar linear markings consistent with bronchitis and/or viral pneumonitis and/or reactive airway disease and/or atypical pulmonary interstitial edema. 3. Mild right perihilar and medial right basilar bronchopneumonia.
[2021-01-29] MEDS: carBAMazepine XR (12 HR) 100 mg Tablet PO (08:26)
[2021-01-29] MEDS: benztropine 1 mg Tablet 0.5 MG PO (08:26)
[2021-01-29] MEDS: spironolactone 25 mg Tablet PO (08:28)
[2021-01-29] MEDS: azithromycin 250 mg Tablet 500 MG PO (08:28)
[2021-01-29] MEDS: pantoprazole DR 40 mg Tablet PO (08:28)
[2021-01-29] MEDS: FUROsemide 20 mg Tablet PO (08:28)
[2021-01-29] MEDS: CLONazepam 0.5 mg Tablet PO (08:28)
[2021-01-29] MEDS: donepezil 5 MG Tablet 10 MG PO (08:28)
[2021-01-29] MEDS: ARIPiprazole 10 mg Tablet PO (08:28)
[2021-01-29] MEDS: BuSPIRONE 10 mg Tablet 7.5 MG PO (08:29)
[2021-01-29] MEDS: aspirin 81 mg EC Tablet PO (08:29)
[2021-01-29] MEDS: roflumilast 500 mcg Tablet PO (08:29)
[2021-01-29] MEDS: montelukast sodium 10 mg Tablet PO (08:29)
[2021-01-29] MEDS: TRAMadol 50 mg Tablet PO ×2 (08:29→16:57)
[2021-01-29] MEDS: sucralfate 1 gm Tablet PO (08:29)
--- NOTE | 2021-01-29 09:33 | PM.PN ---
Subjective Subjective: Interval history: Feels that she was not behaving well yesterday and wanted to apologize. This morning she is feeling somewhat anxious. Denies pain or discomfort. Breathing is not feeling much better yet. Vitals/I&O/Wt Last Vital Signs Temp 98.1 F 01/29/21 08:00 Pulse 88 01/29/21 08:00 Resp 17 01/29/21 08:00 BP 117/57 01/29/21 08:00 Pulse Ox 97 01/29/21 08:00 01/28/21 01/29/21 01/29/21 22:59 06:59 14:59 Intake Total 750 / 750 350 / 1100 Output Total 1250 / 2150 400 / 2550 Balance -500 / -1400 -50 / -1450 Weight last 48 hrs Weight 108.862 kg Physical Exam Const: COMMON NORMALS: no acute distress GENERAL APPEARANCE: cooperative and anxious ORIENTATION/CONSCIOUSNESS: Yes awake HENMT: COMMON NORMALS: oropharynx normal Neck/C-Spine: COMMON NORMALS: no JVD Resp: COMMON NORMALS: normal respiratory effort AUSCULTATION: rhonchi, wheezes and diminished lung sounds Cardio: COMMON NORMALS: no JVD, regular rhythm, S1 normal heart sound present, S2 normal heart sound present and No murmurs present (Cardio) RHYTHM: regular rhythm HEART SOUNDS: S1 normal heart sound present and S2 normal heart sound present GI: COMMON NORMALS: Normal to inspection, nondistended, normoactive bowel sounds present, Soft to palpation and non-tender PALPATION: Yes Soft to palpation Extremity: COMMON NORMALS: no joint enlargement and no pedal edema Neuro: COMMON NORMALS: moves all extremities Skin: COMMON NORMALS: no rashes or lesions noted GENERAL SKIN EXAM: no rashes or lesions noted Urinary Catheter Management^: Riojas: Cath Placed During This Visit: yes Reason for Continuing Indwelling Catheter: Accurate Measurement of Urinary Output in Critically Ill Patients Urinary Catheter Date of Insertion: 01/28/21 Urinary Catheter Time of Insertion: 06:12 Data : 01/29/21 03:30 01/29/21 03:30 Micro: Microbiology 01/28/21 11:00 Gram Stain - Final Sputum - Expectorated Sputum A&P Assessment and plan (1) Pneumonia: Still feels chest is congested, coughing up phlegm. Repeated chest x-ray. Continue antibiotics. Add as needed breathing treatments. Add flutter valve, incentive spirometer. Requiring 4 L of oxygen. Wheezing, diminished air entry, crackles at bases. Continue antibiotics. Follow urine antigens. Sputum culture. Status: Acute Qualifiers: Pneumonia type: due to unspecified organism Laterality: right Lung location: lower lobe of lung Qualified Code(s): J18.9 - Pneumonia, unspecified organism (2) COPD (chronic obstructive pulmonary disease): Possibly severe COPD exacerbation with dyspnea, diminished air entry, wheezing, cough, hypoxia, purulent sputum. Continue to antibiotics. Add Solu-Medrol. Add as needed nebs. Continue Duonebs q4h joel, pulmicort 0.5 BID Monitor for improvement/change in symptoms, consider addition of steroid. Status: Acute Qualifiers: COPD type: chronic bronchitis Chronic bronchitis type: unspecified Qualified Code(s): J42 - Unspecified chronic bronchitis (3) Chronic hyponatremia: Acute component of hyponatremia appears to have resolved. Sodium up to 129 which appears to be close to her baseline. Continue to monitor sodium. Can change Rocephin back to NS. Sister says she drinks too much fluid. She used to have to limited to when they lived together. May need to make sure has fluid restriction after discharge. Monitor intake. Fluid restriction 1200 cc/day Multiple medications could contribute incl aripiprazole, venlafaxine, carbamazepine Holding venlafaxine for now, continuing carbamazepine to reduce risk of breakthrough seizures Normal TSH, cortisol level normal, but perhaps lower than may be expected. Will be receiving steroids as above for COPD exacerbation. Status: Acute Additional A&P Information Bipolar disorder, schizophrenia: Episodes of restlessness yesterday, pulling on monitors, lines, required additional Geodon yesterday. Today somewhat better, but anxious. We are giving her Xanax for anxiety currently. Continue Abilify, carbamazepine, buspirone, Cogentin, Aricept. Venlafaxine on hold. Mental status appears to be better. DNR/DNI DVT ppx: lovenox Attestations Medical Necessity Statement*: Continue admission for assessment management of pneumonia, hypoxia, possibly severe COPD exacerbation. 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
[2021-01-29] MEDS: ALPRAZolam 0.25 mg Tablet PO (10:20)
--- NOTE | 2021-01-29 15:34 | PC.OT ---
OT orders received to evaluate and treat. OT attempts evaluation, patient refuses to participate; chart review and communication with [facility] staff reveal that patient is at least one person assist with all activities except for wheelchair mobility. No further OT evaluation to be attempted secondary to lack of participation and prior level of assistance.
--- NOTE | 2021-01-29 20:28 | PC.NURSE ---
PATIENT REFUSING TO ANSWER ANY QUESTIONS, ALLOW STAFF TO PERFORM ANY CARE, VITAL SIGNS WELL REFUSING MEDICATIONS. PATIENT STATES YOU ARE TRYING TO GET RID OF ME , THEY ARE GOING TO DRAG ME OUT OF HERE IF I TAKE THAT BECAUSE IT BUT ME TO SLEEP. THIS NURSE HAS ATTEMPTED TO EDUCATE PATIENT ON IMPORTANCE OF MEDICATION ADMINISTRATION AND NEED FOR CARE. PATIENT IS ALSO STATING SEE THOSE PEOPLE DOWN THERE CRAWLING? THEY WERE HERE LAST NIGHT TO. THEY ARE TRYING TO TAKE ME OUT OF HERE.
--- NOTE | 2021-01-29 21:19 | PC.NURSE ---
pt put care transitions manager light complaining of back pain. asked if she wants nurse to give something for the pain. patient says refuses then states that staff isn't helping her
[2021-01-30] VITALS (8 sets, daily range): BP systolic 137–162; BP diastolic 78–84; PULSE 68–91; RESP 16–20; TEMP 36.4–36.9; O2SAT 92–98
--- NOTE | 2021-01-30 04:12 | PC.NURSE ---
PATIENT CONTINUES TO REFUSE MEDICATION THROUGHOUT THE NIGHT, ALSO REFUSED MORNING LABS AND MORNING BREATHING TREATMENTS.
[2021-01-30] MEDS: ARIPiprazole 10 mg Tablet PO (08:04)
[2021-01-30] MEDS: CLONazepam 0.5 mg Tablet PO (08:05)
[2021-01-30] MEDS: montelukast sodium 10 mg Tablet PO (08:05)
[2021-01-30] MEDS: aspirin 81 mg EC Tablet PO (08:05)
[2021-01-30] MEDS: diclofenac 1% Topical Gel 100 gm 4 APPLIC TOPICAL ×2 (08:05→19:53)
[2021-01-30] MEDS: carBAMazepine XR (12 HR) 100 mg Tablet PO (08:05)
[2021-01-30] MEDS: FUROsemide 20 mg Tablet PO (08:05)
[2021-01-30] MEDS: roflumilast 500 mcg Tablet PO (08:05)
[2021-01-30] MEDS: pantoprazole DR 40 mg Tablet PO (08:05)
--- NOTE | 2021-01-30 08:27 | PC.NURSE ---
THIS NURSE WENT IN TO ASSESS PT THIS MORNING. PT WAS ASLEEP IN BED. PT EASILY AWAKEN BY A GOOD MORNING GREETING FROM THIS NURSE. PT WAS PLEASANT. SHE LET ME DO A FULL BODY ASSESSMENT ON HER. THIS NURSE THEN WENT OVER PT'S MORNING MEDS AND PT WAS AGREEABLE TO TAKE ALL THE MEDS LISTED. THIS NURSE WENT AND PULLED MEDICATIONS AND BROUGHT THEM BACK TO PT. PT TOOK A LITTLE OVER HALF OF THEM AND THEN DECIDED SHE WAS NOT TAKING ANYMORE. PT NOW APPEARS TO BE PARANOID THINKING WE ARE ALL TRYING TO KILL HER THIS NURSE EXPLAINED TO THE PT THAT NO ONE IS TRYING TO HARM HER. WE ARE ALL HERE FOR HER BEST INTEREST AND TRYING TO MAKE HER GET BETTER. PT DOES NOT BELIEVE ME. THIS NURSE EXPLAINED THE IMPORTANCE OF THE REMAINED OF THE MEDICATIONS AND THE PT SAID SHE WAS DONE TAKING PILLS RIGHT NOW. THIS NURSE WILL CHECK BACK IN WITH PT IN ABOUT AN HOUR TO SEE IF SHE WILL TAKE REMAINDER OF HER MEDICATIONS. PT IS COMFORTABLE IN BED, WATCHING TV, AND FINISHING BREAKFAST.
--- NOTE | 2021-01-30 11:16 | PC.SOCIAL ---
IMM completed with pt and daughter on 01/30/21 @ 1005. Copy of rights given to pt.
[2021-01-30] MEDS: azithromycin 250 mg Tablet 500 MG PO (11:59)
[2021-01-30] MEDS: benztropine 1 mg Tablet 0.5 MG PO ×2 (11:59→19:50)
[2021-01-30] MEDS: donepezil 5 MG Tablet 10 MG PO (12:00)
[2021-01-30] MEDS: gabapentin 300 mg Capsule PO ×2 (12:00→19:53)
[2021-01-30] MEDS: spironolactone 25 mg Tablet PO ×2 (12:00→19:53)
[2021-01-30] MEDS: sucralfate 1 gm Tablet PO ×2 (12:00→19:54)
[2021-01-30] MEDS: BuSPIRONE 10 mg Tablet 7.5 MG PO ×2 (12:01→19:51)
--- NOTE | 2021-01-30 13:45 | PM.PSYCN ---
Providers/Reason for Consult Consulting Physican/Specialty*: Aditi Beal DO Reason for Consult*: Paranoia Attending Physician: Delta Navarro Primary Care Provider: Randall Solitario MD Psych Consult HPI History of Present Illness Muriel Agarwal is a 75 year old female with history of schizophrenia, dysthymia, generalized anxiety admitted from longterm for abnormal, low sodium level and reportedly with some signs of delirium at the time of evaluation in the emergency department. Psychiatry consulted to evaluate paranoia. Patient reportedly complaining of people taking things from her. At the time of evaluation patient was comfortably sitting up in her hospital bed watching the news and was polite and interactive. She denied any current mood symptoms but states that she occasionally feels down and sad secondary to her ongoing medical issues but denies any past or current suicidal ideation or thoughts about self-harm. When asked about psychotic symptoms, patient denies any auditory or visual hallucinations and states that she really feels like people are taking things from her and doing things to her while she is asleep. She denies any paranoia or paranoid delusions while in the hospital. Patient reports being followed by [facility] for medication management and reports being compliant with her medication and medication management follow-up. Patient denies any problems with memory although she states she does have some difficulty recalling some information at times but is currently able to communicate her understanding of her surroundings and is properly oriented. Psychiatric review of systems is otherwise negative. She reports having a cough and feeling somewhat short of breath. Review of Systems General: Reports: 10 or more systems reviewed and unremarkable except in HPI and below Meds Current Medications: Current Medications Generic Name Dose Route Start Last Admin Trade Name Gayle PRN Reason Stop Dose Admin Acetaminophen 650 mg 01/28/21 01:30 01/28/21 20:11 Acetaminophen 32 5 Mg Tablet PO 650 mg TID@08,12,20 PRN Administration Pain Albuterol/Ipratrop ium 3 ml 01/28/21 04:00 01/30/21 11:50 Ipratropium-Albu terol 3 Ml Neb INHALATION Not Given Q4H.RESPIRATORY S CH Aripiprazole 10 mg 01/28/21 08:00 01/30/21 08:04 Aripiprazole 10 Mg Tablet PO 10 mg DAILY@0800 ANTONIA Administration Aspirin 81 mg 01/28/21 08:00 01/30/21 08:05 Aspirin 81 Mg Ec Tablet PO 81 mg DAILY@0800 ANTONIA Administration Azithromycin 500 mg 01/28/21 09:00 01/30/21 11:59 Azithromycin 250 Mg Tablet PO 01/31/21 08:59 500 mg DAILY ANTONIA Administration Protocol Benztropine Mesyla te 0.5 mg 01/28/21 08:00 01/30/21 11:59 Benztropine 1 Mg Tablet PO 0.5 mg BID@ [facility] Administration Budesonide 0.5 mg 01/28/21 08:00 01/30/21 11:50 Budesonide 0.5 M g/2 Ml Neb INHALATION Not Given BID.RESPIRATORY S CH Buspirone HCl 7.5 mg 01/28/21 08:00 01/30/21 12:01 Buspirone 10 Mg Tablet PO 7.5 mg BID@ [facility] Administration Carbamazepine 100 mg 01/28/21 08:00 01/30/21 08:05 Carbamazepine Xr (12 Hr) 100 Mg Ta blet PO 100 mg BID@ [facility] Administration Diclofenac Sodium 4 applic 01/28/21 08:00 01/30/21 12:06 Diclofenac 1% To pical Gel 100 Gm TOPICAL Not Given TID@ [facility] Donepezil HCl 10 mg 01/28/21 08:00 01/30/21 12:00 Donepezil 5 Mg T ablet PO 10 mg DAILY@0800 [facility] Administration Enoxaparin Sodium 40 mg 01/28/21 14:00 01/29/21 14:23 Enoxaparin 40 Mg /0.4 Ml Syringe SUBCUT Not Given Q24H [facility] Furosemide 20 mg 01/28/21 08:00 01/30/21 08:05 Furosemide 20 Mg Tablet PO 20 mg DAILY@0800 [facility] Administration Gabapentin 300 mg 01/29/21 20:00 01/30/21 12:00 Gabapentin 300 M g Capsule PO 300 mg BID@ [facility] Administration Ceftriaxone Sodium 1,000 mg/ 50 mls @ 150 mls/ hr 01/30/21 03:00 01/30/21 02:48 Sodium Chloride IV Not Given Q24H [facility] Methylprednisolone Sodium Succinate 40 mg 01/29/21 10:00 01/30/21 12:00 Methylprednisolo ne Sod Succ 40 Mg/ Ml Inj IVP Not Given Q12H [facility] Montelukast Sodium 10 mg 01/28/21 08:00 01/30/21 08:05 Montelukast Sodi um 10 Mg Tablet PO 10 mg DAILY@0800 ANTONIA Administration Ondansetron HCl 4 mg 01/29/21 04:19 01/29/21 08:25 Ondansetron 2 Mg /Ml Sdv 2 Ml IVP 4 mg Q4H PRN Administration NAUSEA AND VOMITI NG Pantoprazole Sodiu m 40 mg 01/28/21 08:00 01/30/21 08:[address] 40 Mg Tablet PO 40 mg DAILY@0800 ANTONIA Administration Roflumilast 500 mcg 01/28/21 08:00 01/30/21 08:05 Roflumilast 500 Mcg Tablet PO 500 mcg DAILY@0800 ANTONIA Administration Spironolactone 25 mg 01/28/21 08:00 01/30/21 12:00 Spironolactone 2 5 Mg Tablet PO 25 mg BID@08,20 ANTONIA Administration Sucralfate 1 gm 01/28/21 08:00 01/30/21 12:00 Sucralfate 1 Gm Tablet PO 1 gm BID@0800,1999 ANTONIA Administration Tramadol HCl 50 mg 01/28/21 01:09 01/29/21 16:57 Tramadol 50 Mg T ablet PO 50 mg Q6H PRN Administration Pain PFSH NPU PFSH: Medical History Age related osteoporosis Bipolar 1 disorder Degenerative arthritis of knee Dysphagia Dysthymic disorder Generalized anxiety disorder Neuritis Other schizophrenia Schizophrenia Social History Smoking and tobacco status: former smoker Quit status (tobacco): has quit using tobacco Year quit tobacco: 2004 Former quit date comment: 0.5 ppd x 45 Years Second hand smoke exposure: Yes Smoking risk assessment/counseling performed?: No Alcohol intake: never Desire information about alcohol rehabilitation?: No Counseling given: No Desire information about substance/drug rehabilitation?: No Counseling given: No Caregiver/support person: Yes Lives independently: No Housing: [facility] Marital status: Unknown Current occupational status: retired History of recent travel: No Current gender identity: Female Other Psychiatric History: Other Psychiatric History: Patient seen by [facility] for schizophrenia, dysthymia, anxiety Denies past psychiatric hospitalization Denies any history of suicide attempt or self-harm behavior Mental Status Exam MSE Comments: Appears stated age, sitting up in bed, occasionally coughing, calm, cooperative, interactive, good eye contact, wearing hospital gown Psychomotor activity is neither increased nor decreased, no agitation Speech is normal rate and volume, spontaneous, fair articulation, not pressured I feel exhausted, congruent affect, not labile Alert, oriented to person, place, time, situation Memory and concentration appear to be intact per interview Intellectual functioning appears to be average based on vocabulary, interview Thought process, linear, no flight of ideas, no looseness of associations Thought content, reports overvalued ideas with paranoid themes related to the longterm, no stated delusions, no hallucinations, no suicidal or homicidal ideation Insight and judgment appear to be intact Vitals/I&O/Wt Last Vital Signs Temp 98.4 F 01/30/21 12:00 Pulse 90 01/30/21 12:00 Resp 18 01/30/21 12:00 BP 146/78 01/30/21 12:00 Pulse Ox 96 01/30/21 09:00 01/29/21 01/30/21 01/30/21 22:59 06:59 14:59 Intake Total 390 / 1100 Output Total 550 / 850 800 / 800 Balance -160 / 250 -800 / -800 Physical Exam Urinary Catheter Management^: Riojas: Cath Placed During This Visit: yes Reason for Continuing Indwelling Catheter: Other Urinary Catheter Date of Insertion: 01/28/21 Urinary Catheter Time of Insertion: 06:12 Data NPU Micro: Micro: Microbiology 01/28/21 11:00 Gram Stain - Final Sputum - Expector ated Sputum Sputum Culture - F inal 01/29/21 06:00 Urine Culture - Pr eliminary Urine Catheterize d 01/29/21 06:00 Legionella Urinary Antigen - Final Urine Catheterize d Microbiology 01/28/21 11:00 Sputum - Expectorated Sputum Gram Stain - Final 01/28/21 11:00 Sputum - Expectorated Sputum Sputum Culture - Final 01/29/21 06:00 Urine Catheterized Urine Culture - Preliminary 01/29/21 06:00 Urine Catheterized Legionella Urinary Antigen - Final A&P Assessment and plan (1) Other schizophrenia: Status: Acute (2) Pneumonia: Status: Acute Qualifiers: Pneumonia type: due to unspecified organism Laterality: right Lung location: lower lobe of lung Qualified Code(s): J18.9 - Pneumonia, unspecified organism (3) Chronic hyponatremia: Status: Acute (4) Acute hyponatremia: Status: Acute (5) COPD (chronic obstructive pulmonary disease): Status: Acute Qualifiers: COPD type: chronic bronchitis Chronic bronchitis type: unspecified Qualified Code(s): J42 - Unspecified chronic bronchitis (6) Chest pain: Status: Acute (7) Dysthymic disorder: Status: Acute Additional A&P Information Patient with reported paranoia which appears to be longstanding with belief that people are doing things to her and taking things from her at the longterm although she denies any of these events occurring while in the hospital. Patient with recent episode of acute hyponatremia in the context of chronic hyponatremia and pneumonia which may be exacerbating symptoms with reported earlier signs of delirium at the time of initial evaluation. Patient is currently lucid and cognitively appears to be intact with no complaints of any psychiatric symptoms. Patient currently taking carbamazepine which may exacerbate hyponatremia as well as possibly speeding up metabolism of her antipsychotic other medications and may benefit from discontinuation of this medication as well as decreasing her scheduled clonazepam and discontinuing hydroxyzine to minimize use of any [place] sedating and anticholinergic medications which could exacerbate her symptoms. Psychiatric hospitalization is not indicated at this time, outpatient medication management after medical stabilization is the least restrictive and appropriate level of care at this time. One-to-one observation is not indicated at this time and patient does not appear to be an imminent risk of harm to self or others DISCONTINUE carbamazepine DECREASE clonazepam to clonazepam 0.25 mg twice daily CONTINUE Abilify 10 mg daily for mood, psychotic symptoms HOLD venlafaxine Psychiatry will sign off at this time Attestations NPU Medical Necessity Statement*: Hospitalist is continuing to evaluation and treat for medical issues Time Spent in Patient Care: Greater than 35 minutes (>than 50% of time spent in counselling and/or direct pt care on unit). Coding Level of Care Code Acute Machine Cloth Examiner for g Fwd Diagnoses Other schizophrenia F20.89 Pneumonia J18.9 Pneumonia type: due to unspecified organism Laterality: right Lung location: lower lobe of lung Chronic hyponatremia E87.1 Acute hyponatremia E87.1 COPD (chronic obstructive pulmonary disease) J42 COPD type: chronic bronchitis Chronic bronchitis type: unspecified Chest pain R07.9 Dysthymic disorder F34.1
[2021-01-30] MEDS: CLONazepam 0.5 mg Tablet 0.25 MG PO (19:51)
[2021-01-30] MEDS: magnesium hydroxide 30 mL UDC PO (19:54)
--- NOTE | 2021-01-30 20:13 | P.PN_ITS ---
Subjective Subjective: Interval history: Overall she is doing all right. She is still coughing up good amount of phlegm. Has flutter valve at the bedside, but says has not been using it as it was not sure what it was. Showed her how to use it and she used it several times in front of me. Repeated instructions to use it every hour. Denies chest pain. Today nursing staff noted she had expressed paranoid ideation, stating that various hospital staff were trying to kill her . Vitals/I&O/Wt Last Vital Signs Temp 97.6 F 01/30/21 19:52 Pulse 79 01/30/21 19:52 Resp 17 01/30/21 19:52 BP 137/79 01/30/21 19:52 Pulse Ox 92 01/30/21 19:52 01/30/21 01/30/21 01/30/21 06:59 14:59 22:59 Intake Total 480 / 480 Output Total 800 / 800 Balance -800 / -800 480 / -320 Physical Exam Const: COMMON NORMALS: no acute distress and alert GENERAL APPEARANCE: cooperative NUTRITIONAL APPEARANCE: obese ORIENTATION/CONSCIOUSNESS: Yes awake HENMT: COMMON NORMALS: oropharynx normal Neck/C-Spine: COMMON NORMALS: no JVD Resp: COMMON NORMALS: normal respiratory effort AUSCULTATION: no rhonchi, no wheezes and diminished lung sounds Cardio: COMMON NORMALS: no JVD, regular rhythm, S1 normal heart sound present, S2 normal heart sound present and No murmurs present (Cardio) RHYTHM: regular rhythm HEART SOUNDS: S1 normal heart sound present and S2 normal heart sound present GI: COMMON NORMALS: Normal to inspection, nondistended, normoactive bowel sounds present, Soft to palpation and non-tender PALPATION: Yes Soft to palpation Extremity: COMMON NORMALS: no joint enlargement and no pedal edema Neuro: COMMON NORMALS: moves all extremities SENSORIUM/ORIENTATION: Yes alert Skin: COMMON NORMALS: no rashes or lesions noted GENERAL SKIN EXAM: no rashes or lesions noted Urinary Catheter Management^: Riojas: Cath Placed During This Visit: yes Reason for Continuing Indwelling Catheter: Other Urinary Catheter Date of Insertion: 01/28/21 Urinary Catheter Time of Insertion: 06:12 Data : 01/29/21 03:30 01/29/21 03:30 Micro: Microbiology 01/28/21 11:00 Gram Stain - Final Sputum - Expectorated Sputum Sputum Culture - Final 01/29/21 06:00 Urine Culture - Preliminary Urine Catheterized 01/29/21 06:00 Legionella Urinary Antigen - Final Urine Catheterized A&P Assessment and plan (1) Pneumonia: Overall slightly better, little bit less secretions, but still producing phlegm, coughing. Still dyspneic. On 3 L nasal cannula oxygen. Wheezing so far has improved. Still diminished air entry. Continue antibiotics empirically. Sputum culture with mixed organisms. Pulmonary toilet. Status: Acute Qualifiers: Pneumonia type: due to unspecified organism Laterality: right Lung location: lower lobe of lung Qualified Code(s): J18.9 - Pneumonia, unspecified organism (2) COPD (chronic obstructive pulmonary disease): Wheezing is better. Still diminished air entry, but with improvement. Some worsening of paranoid ideation today. With improvement in pulmonary function we will cut down on her steroid dose. Continue to taper off as tolerating. Severe COPD exacerbation. Continue to antibiotics. ANebs. Pulmicort 0.5 BID Status: Acute Qualifiers: COPD type: chronic bronchitis Chronic bronchitis type: unspecified Qualified Code(s): J42 - Unspecified chronic bronchitis (3) Chronic hyponatremia: She refused labs today, appears due to worsening paranoid ideation. Overall hyponatremia appears to have returned to her chronic baseline. Reassess in the morning if will allow. Appreciate psychiatry recommendations. Carbamazepine discontinued at this time. Sister says she drinks too much fluid. She used to have to limited to when they lived together. May need to make sure has fluid restriction after discharge. Monitor intake. Fluid restriction 1200 cc/day Multiple medications could contribute incl aripiprazole, venlafaxine, carbamazepine Holding venlafaxine for now, continuing carbamazepine to reduce risk of b reakthrough seizures Normal TSH, cortisol level normal, but perhaps lower than may be expected. Will be receiving steroids as above for COPD exacerbation. Status: Acute Additional A&P Information Bipolar disorder, schizophrenia: Some worsening of paranoia reported today. Appreciate psychiatry evaluation. Appreciate medication adjustments made. Continue outpatient follow-up. Possibility of contributing to acute delirium secondary to medical illness superimposed on chronic condition. Continue to t reat pneumonia, COPD distribution. Taper off steroids. DNR/DNI DVT ppx: lovenox Attestations Medical Necessity Statement*: Continue admission for assessment management of pneumonia, severe COPD exacerbation, taper of steroids, monitor mental status with adjustment of psychiatric medications. Coding Level of Care Code Acute Online Editor for g Fwd Diagnoses Pneumonia J18.9 Pneumonia type: due to unspecified organism Laterality: right Lung location: lower lobe of lung COPD (chronic obstructive pulmonary disease) J42 COPD type: chronic bronchitis Chronic bronchitis type: unspecified Chronic hyponatremia E87.1
[2021-01-31] VITALS (8 sets, daily range): BP systolic 136–166; BP diastolic 73–87; PULSE 20–98; RESP 16–18; TEMP 36.2–37.1; O2SAT 91–98
[2021-01-31] MEDS: cefTRIAXone 1,000 MG in sodium chloride 0.9% (plus) 50 ML 150 MG IV (03:34)
[2021-01-31] MEDS: TRAMadol 50 mg Tablet PO ×2 (05:23→20:24)
[2021-01-31 05:53] LABS: Basophils % 0.4 %; Eosinophils # 0.1 10^3/uL (0.0-0.8); Eosinophils % 1.2 %; Hematocrit 43.5 % (37.0-47.0); Lymphocytes # 1.3 10^3/uL (0.8-4.8); Lymphocytes % 17.2 %; Mean Corpuscular HGB Conc 32.2 g/dL (30.0-36.0); Mean Corpuscular Hemoglobin 28.8 pg (28.0-34.0); Mean Corpuscular Volume 89.5 fL (81-99); Mean Platelet Volume 9.1 fL (7.4-10.4); Monocytes # 0.5 10^3/uL (0.2-0.9); Monocytes % 7.4 %; Neutrophils # 5.37 10^3/uL (1.8-7.7); Neutrophils % 73.4 %; Nucleated Red Blood Cells % 0 %; Platelet Count 229 10^3/cmm (130-400); Red Blood Count 4.86 10^6/uL (4.1-5.3); Red Cell Distribution Width 14.6 % (12.1-15.1); White Blood Count 7.3 10^3/uL (4.0-10.0)
[2021-01-31 06:07] LABS: Alanine Aminotransferase 56 U/L (0-33); Albumin Level 3.7 g/dL (3.5-5.2); Alkaline Phosphatase 152 IU/L (35-105); Aspartate Amino Transferase 38 U/L (0-32); Blood Urea Nitrogen 7 mg/dL (8-23); Calcium 8.5 mg/dL (8.5-10.5); Carbon Dioxide 28 mmol/L (22-29); Chloride 92 mmol/L (98-107); Globulin 2.9 g/dL (1.3-4.6); Glucose 92 mg/dL (65-115); Osmolality Calculated 268 mOsm/kg (285-295); Sodium 130 mmol/L (136-145); Total Bilirubin 0.4 mg/dL (0.15-1.2); Total Protein 6.6 g/dL (6.6-8.7)
[2021-01-31 06:08] LABS: Anion Gap 13.9 (5-19); Potassium 3.9 mmol/L (3.5-5.1)
[2021-01-31] MEDS: budesonide 0.5 mg/2 mL Neb INHALATION (08:19)
[2021-01-31] MEDS: ipratropium-albuterol 3 mL Neb INHALATION (08:19)
[2021-01-31] MEDS: CLONazepam 0.5 mg Tablet 0.25 MG PO ×2 (08:25→20:17)
[2021-01-31] MEDS: sucralfate 1 gm Tablet PO ×2 (08:26→20:17)
[2021-01-31] MEDS: ARIPiprazole 10 mg Tablet PO (08:26)
[2021-01-31] MEDS: montelukast sodium 10 mg Tablet PO (08:26)
[2021-01-31] MEDS: azithromycin 250 mg Tablet 500 MG PO (08:26)
[2021-01-31] MEDS: roflumilast 500 mcg Tablet PO (08:26)
[2021-01-31] MEDS: FUROsemide 20 mg Tablet PO (08:26)
[2021-01-31] MEDS: pantoprazole DR 40 mg Tablet PO (08:26)
[2021-01-31] MEDS: donepezil 5 MG Tablet 10 MG PO (08:26)
[2021-01-31] MEDS: gabapentin 300 mg Capsule PO ×2 (08:26→20:18)
[2021-01-31] MEDS: diclofenac 1% Topical Gel 100 gm 4 APPLIC TOPICAL ×2 (08:27→22:06)
[2021-01-31] MEDS: BuSPIRONE 10 mg Tablet 7.5 MG PO ×2 (08:27→20:17)
[2021-01-31] MEDS: spironolactone 25 mg Tablet PO ×2 (08:27→20:17)
[2021-01-31] MEDS: benztropine 1 mg Tablet 0.5 MG PO ×2 (08:27→20:16)
[2021-01-31] MEDS: aspirin 81 mg EC Tablet PO (08:27)
--- NOTE | 2021-01-31 16:05 | P.DS_ITS ---
Discharge Providers Date of Admission: 01/27/21 23:32 Date of Discharge: January 31, 2021 Attending Provider at Admission: Haleigh Dumont MD Attending Provider at Discharge: Danilo Cruz MD Primary Care Provider: Randall Solitario MD Diagnoses at Discharge Discharge Diagnosis (1) Pneumonia: Status: Acute Qualifiers: Pneumonia type: due to unspecified organism Laterality: right Lung location: lower lobe of lung Qualified Code(s): J18.9 - Pneumonia, unspecified organism (2) COPD (chronic obstructive pulmonary disease): Status: Acute Qualifiers: COPD type: chronic bronchitis Chronic bronchitis type: unspecified Qualified Code(s): J42 - Unspecified chronic bronchitis (3) Chronic hyponatremia: Status: Acute Reason for Visit Reason for Visit: ABNORMAL LABS Hospital Course Hospital Course Muriel Agarwal is a 75 year old female sent from [facility] after helder jacoby found to have abnormal sodium level on routine lab test. Patient unable to provide much information, history obtained by talking to [facility] staff. Patient has a h/o schizophenia, normally she is alert, awke and oriented, however has some paranoid ideation. Since the past few days, she has been acting more paranoid than usual, tougher to calm and re orient. Labs were routinely checked this morning and Na was at 123, previously Na numbers at 132 from may 2020, 131 from november 2019. review of past records at [facility] shows Na numbers between 126-133 from 2019, attributed at the time to dehydration vs SIADH in the setting of a LLL pneumonia. In the ER Na noted to be at 119. Patient was with hyperactive delirium in the ER, cursing at ER staff, received Stacie to enable CT head, at time of my assessment she is more calm. Able to tell me her correct name , and the fact that she lives in a detention. Denies any complaints, when asked about her coughing states she has been coughing for years . Does endorse feeling SOB, but states this is chronic too. I am not certain she is a reliable historian. per [facility] staff, she has not had a fever, denied any chest pain, abdominal pain, cough, nausea, vomtoing or diarrhea. Patient is under the hospital for management of acute on chronic hyponatremia. For concerns of SIADH because of chronic antipsychotic medication she was started on fluid restriction up to 1200 cc/day. During hospitalization there were concerns of COPD exacerbation for which she was started on steroids which were tapered down gradually. There is a concern for paranoia secondary to steroid use. 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 Patient did a lot better after changes in her medications. On the day of discharge patient was saturating 94% on room air. Patient is to finish oral steroid course for next 5 days. Her medications have been adjusted as per psychiatric recommendations. Patient is to follow-up with her primary care provider within next 4 to 7 days. She is to be on Augmentin levofloxacin as antibiotics for 5 more days to finish a course of antibiotics for community-acquired pneumonia. Physical Exam Const: COMMON NORMALS: no acute distress and alert GENERAL APPEARANCE: cooperative NUTRITIONAL APPEARANCE: obese ORIENTATION/CONSCIOUSNESS: Yes awake HENMT: COMMON NORMALS: oropharynx normal Neck/C-Spine: COMMON NORMALS: no JVD Resp: COMMON NORMALS: normal respiratory effort AUSCULTATION: no rhonchi, no wheezes and diminished lung sounds Cardio: COMMON NORMALS: no JVD, regular rhythm, S1 normal heart sound present, S2 normal heart sound present and No murmurs present (Cardio) RHYTHM: regular rhythm HEART SOUNDS: S1 normal heart sound present and S2 normal heart sound present GI: COMMON NORMALS: Normal to inspection, nondistended, normoactive bowel sounds present, Soft to palpation and non-tender PALPATION: Yes Soft to palpation Extremity: COMMON NORMALS: no joint enlargement and no pedal edema Neuro: COMMON NORMALS: moves all extremities SENSORIUM/ORIENTATION: Yes alert Skin: COMMON NORMALS: no rashes or lesions noted GENERAL SKIN EXAM: no rashes or lesions noted Urinary Catheter Management^: Riojas: Cath Placed During This Visit: yes Reason for Continuing Indwelling Catheter: Other Urinary Catheter Date of Insertion: 01/28/21 Urinary Catheter Time of Insertion: 06:12 Discharge Data Data Completed and Pending: Completed Studies During Hospitalization Category Date Time Status CT head wo con* [id number] Urgent Cat Scan 01/27/21 21:08 Completed XR chest 1V anibal ble [id number] Routine Exams 01/29/21 08:03 Completed XR chest 1V anibal ble [id number] Urgent Exams 01/27/21 20:18 Completed Pending at discharge Category Date Time Status Complete Blood Co unt w/Auto AM LABS Lab 02/01/21 04:00 Ordered Comprehensive Met abolic Panel AM LA BS Lab 02/01/21 04:00 Ordered Osmolality Urine Routine Lab 01/28/21 06:12 Received Labs from last 24 hours 01/31/21 01/31/21 05:37 05:37 WBC 7.3 RBC 4.86 Hgb 14.0 Hct 43.5 MCV 89.5 MCH 28.8 MCHC 32.2 RDW 14.6 Plt Count 229 MPV 9.1 Neut % (Auto) 73.4 Lymph % (Auto) 17.2 Mckinley % (Auto) 7.4 Eos % (Auto) 1.2 Baso % (Auto) 0.4 Neut # (Auto) 5.37 Lymph # (Auto) 1.3 Mckinley # (Auto) 0.5 Eos # (Auto) 0.1 Baso # (Auto) 0.0 Nucleated RBC % (a uto) 0 Nucleated RBCs # 0.0 Sodium 130 L Potassium 3.9 Chloride 92 L Carbon Dioxide 28 Anion Gap 13.9 BUN 7 L Creatinine 0.3 L GFR Calculation Not Reportable Glucose 92 Calculated Osmolal ity 268 L Calcium 8.5 Total Bilirubin 0.4 AST 38 H ALT 56 H Alkaline Phosphata se 152 H Total Protein 6.6 Albumin 3.7 Globulin 2.9 Vitals: Last Vital Signs Temp 97.9 F 01/31/21 15:42 Pulse 89 01/31/21 15:42 Resp 18 01/31/21 15:42 BP 147/84 01/31/21 15:42 Pulse Ox 94 01/31/21 15:42 Discharge Plan Discharge Patient Disposition: Xfer SNF Condition: Stable Prescriptions: New prednisone 20 mg Tablet 40 mg PO DAILY Qty: 5 RF: 0 amoxicillin-pot clavulanate [Augmentin] 500-125 mg tablet 1 tab PO BID Qty: 10 RF: 0 levofloxacin 500 mg tablet 500 mg PO DAILY 5 Days Qty: 5 RF: 0 Continued tramadol 50 mg tablet 50 mg PO Q6H PRN (Reason: Pain) RF: 0 senna 8.6 mg capsule 8.6 mg PO BID@08,20 PRN (Reason: Constipation) RF: 0 pantoprazole 40 mg tablet,delayed release (DR/EC) 40 mg PO DAILY@0800 RF: 0 (DME) enema bag, disposable Misc See Rx Instructions .ROUTE .MEDSUPPLY Qty: 50 RF: 0 bisacodyl 10 mg suppository 10 mg NH DAILY PRN (Reason: Constipation) RF: 0 magnesium hydroxide [Aguilar Milk of Magnesia] 400 mg/5 mL suspension 30 ml PO DAILY PRN (Reason: Constipation) RF: 0 guaifenesin [Letty-Tussin] 100 mg/5 mL liquid 200 mg PO Q4H PRN (Reason: UNKNOWN) RF: 0 diclofenac sodium [Voltaren] 1 % gel 2 gm TOPICAL TID@08,, RF: 0 aspirin [Adult Low Dose Aspirin] 81 mg tablet,delayed release (DR/EC) 81 mg PO DAILY@0800 RF: 0 benztropine 0.5 mg tablet 0.5 mg PO BID@, RF: 0 donepezil 10 mg tablet 10 mg PO DAILY@0800 RF: 0 loratadine [Allergy Relief (loratadine)] 10 mg tablet 10 mg PO DAILY@0800 RF: 0 montelukast 10 mg tablet 10 mg PO DAILY@0800 RF: 0 multivitamin Tablet 1 tab PO DAILY@0800 RF: 0 sucralfate 1 gram tablet 1 gm PO BID@08,1999 RF: 0 acetaminophen [Tylenol] 325 mg capsule 650 mg PO TID@08,, PRN (Reason: Pain) RF: 0 hydroxyzine HCl 25 mg tablet 25 mg PO TID PRN (Reason: UNKNOWN) RF: 0 lactulose 20 gram/30 mL solution 40 gm PO BID@08,20 PRN (Reason: UNKNOWN) RF: 0 gabapentin 300 mg capsule 300 mg PO BID@08,20 RF: 0 triamcinolone acetonide [Kenalog] 40 mg/mL suspension 40 mg INTRA-DANNIELLE ONCE Qty: 2 RF: 0 ropivacaine (PF) 5 mg/mL (0.5 %) solution 2 ml intra-articular ONCE Qty: 2 RF: 0 spironolactone 25 mg tablet 25 mg PO BID@08,20 RF: 0 aripiprazole [Abilify] 10 mg tablet 10 mg PO DAILY@0800 RF: 0 potassium chloride 20 mEq tablet extended release 20 meq PO DAILY@0800 RF: 0 furosemide 20 mg tablet 20 mg PO DAILY@0800 RF: 0 ipratropium-albuterol 0.5 mg-3 mg(2.5 mg base)/3 mL solution for nebulization 3 ml inhalation Q6H Qty: 360 RF: 3 Daliresp 500 mcg tablet 500 mcg PO DAILY@0800 RF: 0 buspirone 7.5 mg tablet 7.5 mg PO BID@,20 RF: 0 Throat Mullins 1.4 % Aerosol,Mullins See Rx Instructions .ROUTE .COMPLEX RF: 0 Enema Disposable 19 g NH DAILY PRN (Reason: Constipation) RF: 0 nystatin 100,000 unit/gram Cream 1 applic TOPICAL BID@,20 RF: 0 Debrox 6.5 % Drops 5 drp otic (ear) TID PRN (Reason: UNKNOWN) RF: 0 ProAir HFA 90 mcg/actuation Hfa Aerosol Inhaler 2 puff INHALATION 6XD PRN (Reason: UNKNOWN) RF: 0 Pulmicort 0.5 mg/2 mL suspension for nebulization 0.5 mg inhalation BID@, RF: 0 Changed clonazepam 0.5 mg tablet 0.25 mg PO BID@,20 Qty: 0 RF: 0 Discontinued venlafaxine 150 mg tablet extended release 24hr 150 mg PO DAILY@0800 RF: 0 carbamazepine 100 mg capsule, ER multiphase 12 hr 100 mg PO BID@,20 RF: 0 Discharge Orders: Discharge Order (Routine); Ordered 01/31/21 Ordered By: Danilo Cruz Referrals: Randall Solitario MD [Primary Care Provider] - 4-7 days Discharge Diet: Regular Discharge Activity: Resume usual activity Patient Instructions: Opioid Safety Activity Restrictions/Additional Instructions: DISCONTINUE carbamazepine DECREASE clonazepam to clonazepam 0.25 mg twice daily CONTINUE Abilify 10 mg daily for mood, psychotic symptoms HOLD venlafaxine Discharge Attestations Time Spent in Discharge Care*: greater than 30 min Specific Discharge Activities: discussing with pcp/other providers, discussing with ed case manager/social workers/dc planners, documenting/other paperwork and evaluating patient/reviewing data Status at Discharge: Cognitive status at discharge: moderately impaired cognition , Behavioral status at discharge: cooperative , Functional status at discharge: bed bound Overall status at discharge: patient is back to baseline Quality Metrics Clinical Quality Measures During this hospital stay, did patient experience: None Coding Level of Care Code Acute Chg FW DC note Diagnoses Pneumonia J18.9 Pneumonia type: due to unspecified organism Laterality: right Lung location: lower lobe of lung COPD (chronic obstructive pulmonary disease) J42 COPD type: chronic bronchitis Chronic bronchitis type: unspecified Chronic hyponatremia E87.1
[2021-02-01] MEDS: cefTRIAXone 1,000 MG in sodium chloride 0.9% (plus) 50 ML 150 MG IV (03:46)
[2021-02-01 04:00] VITALS: BP 128/82; PULSE 79; RESP 17; TEMP 36.3; O2SAT 97
[2021-02-01 06:25] LABS: Basophils % 0.4 %; Eosinophils # 0.1 10^3/uL (0.0-0.8); Eosinophils % 0.7 %; Hematocrit 38.4 % (37.0-47.0); Hemoglobin 12.8 g/dL (11.5-15.3); Lymphocytes # 1.6 10^3/uL (0.8-4.8); Lymphocytes % 21.2 %; Mean Corpuscular HGB Conc 33.3 g/dL (30.0-36.0); Mean Corpuscular Hemoglobin 28.7 pg (28.0-34.0); Mean Corpuscular Volume 86.1 fL (81-99); Mean Platelet Volume 9.6 fL (7.4-10.4); Monocytes # 0.7 10^3/uL (0.2-0.9); Monocytes % 8.8 %; Neutrophils # 5.12 10^3/uL (1.8-7.7); Neutrophils % 68.5 %; Nucleated Red Blood Cells % 0 %; Platelet Count 223 10^3/cmm (130-400); Red Blood Count 4.46 10^6/uL (4.1-5.3); Red Cell Distribution Width 14.3 % (12.1-15.1); White Blood Count 7.5 10^3/uL (4.0-10.0)
[2021-02-01 06:45] LABS: Alanine Aminotransferase 76 U/L (0-33); Albumin Level 3.5 g/dL (3.5-5.2); Alkaline Phosphatase 136 IU/L (35-105); Anion Gap 11.8 (5-19); Aspartate Amino Transferase 44 U/L (0-32); Blood Urea Nitrogen 8 mg/dL (8-23); Calcium 8.4 mg/dL (8.5-10.5); Carbon Dioxide 30 mmol/L (22-29); Chloride 91 mmol/L (98-107); Globulin 2.6 g/dL (1.3-4.6); Glucose 103 mg/dL (65-115); Osmolality Calculated 267 mOsm/kg (285-295); Potassium 3.8 mmol/L (3.5-5.1); Sodium 129 mmol/L (136-145); Total Bilirubin 0.4 mg/dL (0.15-1.2); Total Protein 6.1 g/dL (6.6-8.7)
[2021-02-01 08:00] VITALS: BP 121/63; PULSE 104; RESP 18; TEMP 37.1; O2SAT 98
[2021-02-01] MEDS: pantoprazole DR 40 mg Tablet PO (08:10)
[2021-02-01] MEDS: sucralfate 1 gm Tablet PO (08:10)
[2021-02-01] MEDS: FUROsemide 20 mg Tablet PO (08:10)
[2021-02-01] MEDS: gabapentin 300 mg Capsule PO (08:10)
[2021-02-01] MEDS: spironolactone 25 mg Tablet PO (08:10)
[2021-02-01] MEDS: montelukast sodium 10 mg Tablet PO (08:10)
[2021-02-01] MEDS: roflumilast 500 mcg Tablet PO (08:10)
[2021-02-01] MEDS: predniSONE 20 mg Tablet 40 MG PO (08:10)
[2021-02-01] MEDS: benztropine 1 mg Tablet 0.5 MG PO (08:11)
[2021-02-01] MEDS: CLONazepam 0.5 mg Tablet 0.25 MG PO (08:12)
[2021-02-01] MEDS: BuSPIRONE 10 mg Tablet 7.5 MG PO (08:12)
[2021-02-01] MEDS: ARIPiprazole 10 mg Tablet PO (08:12)
[2021-02-01] MEDS: aspirin 81 mg EC Tablet PO (08:13)
[2021-02-01] MEDS: diclofenac 1% Topical Gel 100 gm 4 APPLIC TOPICAL (08:14)
[2021-02-01 08:18] LABS: Osmolality Urine 319 mOsm/kg (50-1200)
--- NOTE | 2021-02-01 09:56 | PC.SOCIAL ---
IMM Update Pg. 2 of IMM Updated and reviewed with patient's sister, LENIN over the phone.
--- NOTE | 2021-02-01 10:27 | PC.NURSE ---
Report called to Lizette MOHAN at [facility].
--- NOTE | 2021-02-01 10:35 | P.PN_ITS ---
Subjective Subjective: Interval history: Patient was discharged yesterday but could not go as custodial would not take patient after 3 PM. No events overnight. Patient is anxious to go back to home. Denies any nausea vomiting, headache. Denies dizziness. Has remained hemodynamically stable and afebrile overnight. Vitals/I&O/Wt Last Vital Signs Temp 98.8 F 02/01/21 08:00 Pulse 104 H 02/01/21 08:00 Resp 18 02/01/21 08:00 BP 121/63 02/01/21 08:00 Pulse Ox 98 02/01/21 08:00 01/31/21 02/01/21 02/01/21 22:59 06:59 14:59 Intake Total 240 / 600 50 / 650 360 / 360 Output Total 450 / 450 Balance -210 / 150 50 / 200 360 / 360 Physical Exam Const: COMMON NORMALS: no acute distress and alert GENERAL APPEARANCE: cooperative NUTRITIONAL APPEARANCE: obese ORIENTATION/CONSCIOUSNESS: Yes awake HENMT: COMMON NORMALS: oropharynx normal Neck/C-Spine: COMMON NORMALS: no JVD Resp: COMMON NORMALS: normal respiratory effort AUSCULTATION: no rhonchi, n o wheezes and diminished lung sounds Cardio: COMMON NORMALS: no JVD, regular rhythm, S1 normal heart sound present, S2 normal heart sound present and No murmurs present (Cardio) RHYTHM: regular rhythm HEART SOUNDS: S1 normal heart sound present and S2 normal heart sound present GI: COMMON NORMALS: Normal to inspection, nondistended, normoactive bowel sounds present, Soft to palpation and non-tender PALPATION: Yes Soft to palpation Extremity: COMMON NORMALS: no joint enlargement and no pedal edema Neuro: COMMON NORMALS: moves all extremities SENSORIUM/ORIENTATION: Yes alert Skin: COMMON NORMALS: no rashes or lesions noted GENERAL SKIN EXAM: no rashes or lesions noted Urinary Catheter Management^: Riojas: Cath Placed During This Visit: yes, but has since been removed by the nurse Reason for Continuing Indwelling Catheter: Not indwelling catheter Urinary Catheter Date of Insertion: 01/28/21 Urinary Catheter Time of Insertion: 06:12 Date Urinary Catheter Removed: 01/31/21 Time Urinary Catheter Discontinued: 13:00 Data : 02/01/21 05:05 02/01/21 05:05 Micro: Microbiology 01/29/21 06:00 Urine Culture - Final Urine Catheterized A&P Assessment and plan (1) Pneumonia: Overall slightly better, little bit less secretions, but still producing phlegm, coughing. Still dyspneic. On 3 L nasal cannula oxygen. Wheezing so far has improved. Still diminished air entry. Continue antibiotics empirically. Sputum culture with mixed organisms. Pulmonary toilet. Status: Acute Qualifiers: Pneumonia type: due to unspecified organism Laterality: right Lung location: lower lobe of lung Qualified Code(s): J18.9 - Pneumonia, unspecified organism (2) COPD (chronic obstructive pulmonary disease): Wheezing is better. Still diminished air entry, but with improvement. Some worsening of paranoid ideation today. With improvement in pulmonary funct ion we will cut down on her steroid dose. Continue to taper off as tolerating. Severe COPD exacerbation. Continue to antibiotics. ANebs. Pulmicort 0.5 BID Status: Acute Qualifiers: COPD type: chronic bronchitis Chronic bronchitis type: unspecified Qualified Code(s): J42 - Unspecified chronic bronchitis (3) Chronic hyponatremia: She refused labs today, appears due to worsening paranoid ideation. Overall hyponatremia appears to have returned to her chronic baseline. Reassess in the morning if will allow. Appreciate psychiatry recommendations. Carbamazepine discontinued at this time. Sister says she drinks too much fluid. She used to have to limited to when they lived together. May need to make sure has fluid restriction after discharge. Monitor intake. Fluid restriction 1200 cc/day Multiple medications could contribute incl aripiprazole, venlafaxine, carbamazepine Holding venlafaxine for now, continuing carbamazepine to reduce risk of breakthrough seizures Normal TSH, cortisol level normal, but perhaps lower than may be expected. Will be receiving steroids as above for COPD exacerbation. Status: Acute Additional A&P Information Bipolar disorder, schizophrenia: Some worsening of paranoia reported today. Appreciate psychiatry evaluation. Appreciate medication adjustments made. Continue outpatient follow-up. Possibility of contributing to acute delirium secondary to medical illness superimposed on chronic condition. Continue to treat pneumonia, COPD distribution. Taper off steroids. DNR/DNI DVT ppx: lovenox Discharge instructions as in the discharge summary. Salt tablets have been added. Repeat BMP in 3 days. Please make a note of changes to chronic psychiatric medications. Fluid restriction of 1200 cc/day. Attestations Medical Necessity Statement*: Awaiting safe discharge. Time Spent in Patient Care: 16 - 35 minutes Coding Level of Care Code Acute Leadite Heater for Chg Fwd Diagnoses Pneumonia J18.9 Pneumonia type: due to unspecified organism Laterality: right Lung location: lower lobe of lung COPD (chronic obstructive pulmonary disease) J42 COPD type: chronic bronchitis Chronic bronchitis type: unspecified Chronic hyponatremia E87.1
[2021-02-01 11:25] VITALS: BP 121/63; PULSE 104; RESP 18; TEMP 37.1; O2SAT 98
== END 2021-02-01 11:27 | disposition skilled nursing facility (03) | DRG 194 ==
LOC: ER 23:26 → ICU 23:46 → MEDSURG 01-29 13:18
PROVIDERS: Internal Medicine; Admitting Provider Student in an Organized Health Care Education/Training Program; Emergency Provider Family Medicine; PCP Family Medicine; Visit Provider Student in an Organized Health Care Education/Training Program
DX: J18.9 Pneumonia, unspecified organism (principal); J44.0 Chronic obstructive pulmonary disease with (acute) lower respiratory infection; J44.1 Chronic obstructive pulmonary disease with (acute) exacerbation; F20.0 Paranoid schizophrenia; E22.2 Syndrome of inappropriate secretion of antidiuretic hormone; Z87.01 Personal history of pneumonia (recurrent); M81.0 Age-related osteoporosis without current pathological fracture; F41.1 Generalized anxiety disorder; Z87.891 Personal history of nicotine dependence; Z66 Do not resuscitate; F34.1 Dysthymic disorder
CPT/HCPCS: 36415; 51702; 70450; 71045; 80048; 80053; 81001; 82436; 82533; 83880; 83935; 84133; 84145; 84295; 84300; 84443; 85025; 85378; 87070; 87086; 87205; 87449; 92610; 93005; 94640; 94664; 96372; 97161; J0696; J1650; J2405; J2920; J3486; J7030; J7512; J7626; Q0144

== ENCOUNTER → 2021-02-22 08:09 | Outpatient (BNVA) | payer MEDICARE, MEDICAID, SELFPAY | PROVIDERS: PCP Family Medicine; Visit Provider Nurse Practitioner | DX: F41.1 Generalized anxiety disorder (principal); F20.89 Other schizophrenia; F34.1 Dysthymic disorder | CPT/HCPCS: 99214 ==

== ENCOUNTER → 2021-05-17 12:22 | Outpatient (BNVA) | payer MEDICARE, MEDICAID, SELFPAY | PROVIDERS: PCP Family Medicine; Visit Provider Nurse Practitioner | DX: F41.1 Generalized anxiety disorder (principal); F20.89 Other schizophrenia; F34.1 Dysthymic disorder | CPT/HCPCS: 99214 ==

== ENCOUNTER → 2021-08-18 09:40 | Outpatient (BNVA) | payer MEDICARE, MEDICAID, SELFPAY | PROVIDERS: PCP Family Medicine; Visit Provider Nurse Practitioner | DX: F41.1 Generalized anxiety disorder (principal); F20.89 Other schizophrenia; F34.1 Dysthymic disorder | CPT/HCPCS: 99214 ==

== ENCOUNTER 2021-11-15 13:39 | Outpatient (CLI) | payer MEDICARE, MEDICAID, SELFPAY ==
[2021-11-15 14:05] LABS: Basophils % 0.2 %; Eosinophils % 0.1 %; Hematocrit 43.2 % (37.0-47.0); Hemoglobin 14.1 g/dL (11.5-15.3); Lymphocytes # 1.5 10^3/uL (0.8-4.8); Lymphocytes % 13.9 %; Mean Corpuscular HGB Conc 32.6 g/dL (30.0-36.0); Mean Corpuscular Hemoglobin 28.3 pg (28.0-34.0); Mean Corpuscular Volume 86.7 fl (81-99); Mean Platelet Volume 9.5 fL (7.4-10.4); Monocytes # 0.9 10^3/uL (0.2-0.9); Monocytes % 7.9 %; Neutrophils % 77.4 %; Nucleated Red Blood Cells % 0 %; Platelet Count 238 10^3/cmm (130-400); Red Blood Count 4.98 10^6/uL (4.1-5.3); Red Cell Distribution Width 14.4 % (12.1-15.1); White Blood Count 10.9 10^3/uL (4.0-10.0)
[2021-11-15 14:06] LABS: Erythrocyte Sedimentation Rate 35 mm/hr (0-15)
[2021-11-15 14:27] LABS: Alanine Aminotransferase 18 U/L (0-33); Alkaline Phosphatase 134 IU/L (35-105); Anion Gap 14.9 (5-19); Aspartate Amino Transferase 22 U/L (0-32); Blood Urea Nitrogen 9 mg/dL (8-23); C Reactive Protein 158.4 mg/L (0.0-4.9); Calcium 8.4 mg/dL (8.5-10.5); Carbon Dioxide 27 mmol/L (22-29); Chloride 90 mmol/L (98-107); Globulin 2.6 g/dL (1.3-4.6); Glucose 119 mg/dL (65-115); Osmolality Calculated 266 mOsm/kg (285-295); Potassium 3.9 mmol/L (3.5-5.1); Sodium 128 mmol/L (136-145); Total Bilirubin 0.5 mg/dL (0.15-1.2); Total Protein 6.6 g/dL (6.6-8.7)
== END 2021-11-15 13:40 | disposition home or self-care (01) ==
PROVIDERS: PCP Family Medicine; Visit Provider Physician Assistant
DX: L03.90 Cellulitis, unspecified (principal)
CPT/HCPCS: 80053; 85025; 85651; 86140; 87040

== ENCOUNTER 2021-11-16 16:29 | Observation (INO) | payer MEDICARE, MEDICAID, SELFPAY ==
[2021-11-16 16:40] VITALS: BP 151/106; PULSE 138; RESP 20; O2SAT 95; BMI 41.6
--- NOTE | 2021-11-16 16:40 | ED_ITS ---
HPI - General Adult General: Chief complaint: ER Hold Stated complaint: R HIP PAIN REDNESS & SWELLING Time Seen by Provider: 11/16/21 16:40 History of Present Illness: Ms Agarwal is a 76-year-old lady with complex past medical history including COPD with intermittent home oxygen use, psychiatric disorder, and baseline debility who presents emergency department due to concern of her hip. She reports a few days ago noticing some pain on the right hip however thought that this was secondary to rubbing on her wheelchair. She subsequently developed redness and increased pain. She endorses generalized malaise but no other specific infectious symptoms. She was seen by primary care and referred for further evaluation to the emergency department after seeing abnormal labs. Overall the course of symptoms has been worsening. Intensity is moderate. Mildly worse with palpation and movement but not markedly so. No other specific exacerbating or relieving factors identified. Onset (ago): day(s) Location: pelvis and right Severity: moderate Quality: aching Pain Consistency: constant Exacerbating factors: movement Associated symptoms: Reports no associated symptoms Review of Systems General: Reports: 10 or more systems reviewed and unremarkable except in HPI and below PFSH ED PFSH: Medical History Age related osteoporosis Bipolar 1 disorder Chronic hyponatremia COPD (chronic obstructive pulmonary disease) Degenerative arthritis of knee Dysphagia Dysthymic disorder Generalized anxiety disorder Neuritis Other schizophrenia Psychiatric care Schizophrenia Social History Quit status (tobacco): has quit using tobacco Year quit tobacco: 2004 Former quit date comment: 0.5 ppd x 45 Years Second hand smoke exposure: Yes Smoking risk assessment/counseling performed?: No Alcohol intake: never Desire information about alcohol rehabilitation?: No Counseling given: No Desire information about substance/drug rehabilitation?: No Counseling given: No Caregiver/support person: Yes Lives independently: No Housing: Jail Marital status: Unknown Current occupational status: retired History of recent travel: No Current gender identity: Female Physical Exam Const: COMMON NORMALS: alert GENERAL APPEARANCE: cooperative, well developed and ill appearing (Chronically) HENMT: COMMON NORMALS: normocephalic and atraumatic HEAD & SCALP: normocephalic and atraumatic THROAT: posterior oropharynx normal Eye: COMMON NORMALS: conjunctivae normal CONJUNCTIVA: Yes conjunctivae normal SCLERA: sclerae normal Neck/C-Spine: COMMON NORMALS: supple GENERAL: Yes trachea midline Resp: COMMON NORMALS: normal respiratory effort EFFORT & INSPECTION: Yes able to speak in complete sentences AUSCULTATION: diminished lung sounds Cardio: COMMON NORMALS: regular rhythm RATE: tachycardic RHYTHM: regular rhythm GI: COMMON NORMALS: Soft to palpation PALPATION: Yes Soft to palpation and No Tenderness to palpation present (GI) PERCUSSION: normal to percussion Extremity: GENERAL: Yes normal exam except as noted and No edema Neuro: COMMON NORMALS: moves all extremities SENSORIUM/ORIENTATION: Yes alert and No Orientation impaired Psych: COMMON NORMALS: mental status grossly normal and Normal thought process present THOUGHT PROCESS: Normal thought process present Skin: NARRATIVE SKIN EXAM: Large area of erythema without discrete vesicles or other skin lesions identified on the right hip, no punctures identified. Appearance overall consistent with cellulitis. Course ED course: - Patient was seen and evaluated by me at bedside - Patient placed on cardiac monitors, IV access obtained - Initial evaluation notable for exam as above, large area on the lateral pelvis and thigh consistent with cellulitis. -Antibiotics given. - Labs notable for no leukocytosis. Metabolic panel somewhat similar to prior. CRP is elevated. - Imaging notable for negative chest x-ray, chest x-ray was obtained due to abnormal lung sounds. Negative hip x-ray for acute pathology - Upon serial reexamination after treatment the patient was similar - Based on patient history, evaluation, labs, and imaging as interpreted the most likely cause of the patient's condition is cellulitis given high degree of comorbidity as well as progression of symptoms I believe that the patient requires IV antibiotics in the inpatient setting - The results of ED evaluation were discussed with the patient including plan for admission due to requirement for level of care not available if discharged to prevent significant worsening/deterioration. -Hospitalist service contacted and agreed to the patient. - Patient was admitted without further deterioration or significant events. Note: Click bubbles or prepopulated erazo in note writing are used for assistance with data collection and billing and are inherently more limited than narrative and other text portions of this note. Please use narrative for additional clinical history and defer to narrative/free test for any case of contradictory information. If information appears in only free text or click bubble it should be considered present or absent as reported. Please contact note typewriters functional tester for clarifications of clinical information or contradictory information. MDM is a brief summary, contradictory or erroneous seeming information should be clarified and full note should be reviewed. Vital Signs: Vital signs: Vital Signs Temperature 97.8 F 11/18/21 17:39 Pulse Rate 93 11/18/21 17:39 Respiratory Rate 18 11/18/21 17:39 Blood Pressure 127/80 11/18/21 17:39 Pulse Oximetry 96 11/18/21 17:39 MDM - General Adult Medical Decision Making 76-year-old lady with complex past medical history presenting with likely cellulitis. Admitted for IV antibiotics. Medical Records I reviewed the patient's medical records. Lab Data I reviewed the patient's lab results. : 11/18/21 05:36 11/18/21 05:36 Radiology Impressions Chest X-Ray 11/16/21 19:04 IMPRESSION: No acute findings. Hip/Pelvis X-Ray 11/16/21 19:04 IMPRESSION: Right hip arthroplasty in expected alignment. No evidence of osteomyelitis. Soft Tissue Ultrasound 11/17/21 13:29 IMPRESSION: Moderate diffuse subcutaneous edema deep to the scar site in the area of concern. Recommend correlation for cellulitis. No drainable fluid collection or abscess. Laboratory Results WBC 8.4 10^3/uL (4.0-10.0) 11/16/21 17:00 RBC 4.92 10^6/uL (4.1-5.3) 11/16/21 17:00 Hgb 14.0 g/dL (11.5-15.3) 11/16/21 17:00 Hct 42.5 % (37.0-47.0) 11/16/21 17:00 MCV 86.4 fl (81-99) 11/16/21 17:00 MCH 28.5 pg (28.0-34.0) 11/16/21 17:00 MCHC 32.9 g/dL (30.0-36.0) 11/16/21 17:00 RDW 14.3 % (12.1-15.1) 11/16/21 17:00 Plt Count 236 10^3/cmm (130-400) 11/16/21 17:00 MPV 9.0 fL (7.4-10.4) 11/16/21 17:00 Neut % (Auto) 78.9 % 11/16/21 17:00 Lymph % (Auto) 13.3 % 11/16/21 17:00 Gregory % (Auto) 7.0 % 11/16/21 17:00 Eos % (Auto) 0.1 % 11/16/21 17:00 Baso % (Auto) 0.2 % 11/16/21 17:00 Neut # (Auto) 6.63 10^3/uL (1.8-7.7) 11/16/21 17:00 Lymph # (Auto) 1.1 10^3/uL (0.8-4.8) 11/16/21 17:00 Gregory # (Auto) 0.6 10^3/uL (0.2-0.9) 11/16/21 17:00 Eos # (Auto) 0.0 10^3/uL (0.0-0.8) 11/16/21 17:00 Baso # (Auto) 0.0 10^3/uL (0.0-0.1) 11/16/21 17:00 Nucleated RBC % (auto) 0 % 11/16/21 17:00 Nucleated RBCs # 0.0 /100WBC 11/16/21 17:00 ESR 65 mm/hr (0-15) H 11/16/21 17:00 Sodium 130 mmol/L (136-145) L 11/16/21 17:00 Potassium 3.9 mmol/L (3.5-5.1) 11/16/21 17:00 Chloride 91 mmol/L (98-107) L 11/16/21 17:00 Carbon Dioxide 24 mmol/L (22-29) 11/16/21 17:00 Anion Gap 18.9 (5-19) 11/16/21 17:00 BUN 8 mg/dL (8-23) 11/16/21 17:00 Creatinine 0.8 mg/dL (0.5-0.9) 11/16/21 17:00 GFR Calculation Not Reportable 11/16/21 17:00 Glucose 138 mg/dL (65-115) H 11/16/21 17:00 Calculated Osmolality 271 mOsm/kg (285-295) L 11/16/21 17:00 Lactic Acid 1.1 mmol/L (0.5-2.2) 11/16/21 17:33 Calcium 9.0 mg/dL (8.5-10.5) 11/16/21 17:00 Total Bilirubin 0.3 mg/dL (0.15-1.2) 11/16/21 17:00 AST 25 U/L (0-32) 11/16/21 17:00 ALT 26 U/L (0-33) 11/16/21 17:00 Alkaline Phosphatase 137 IU/L (35-105) H 11/16/21 17:00 C-Reactive Protein 117.5 mg/L (0.0-4.9) H 11/16/21 17:00 Total Protein 7.5 g/dL (6.6-8.7) 11/16/21 17:00 Albumin 3.9 g/dL (3.5-5.2) 11/16/21 17:00 Globulin 3.6 g/dL (1.3-4.6) 11/16/21 17:00 Discharge Plan Discharge Patient Disposition: Placed in Observation Admit Provider: Eddy Theodore Clinical Impression: Cellulitis Discharge Diet: Diabetic Discharge Activity: Increase activity as tolerated Coding Level of Care Code ED Hearing Therapy Teacher for Bruceg Fwd Exam Comprehensive
[2021-11-16 17:07] VITALS: BP 151/106; PULSE 130; RESP 20; O2SAT 95
[2021-11-16 17:10] LABS: Basophils % 0.2 %; Eosinophils % 0.1 %; Hematocrit 42.5 % (37.0-47.0); Lymphocytes # 1.1 10^3/uL (0.8-4.8); Lymphocytes % 13.3 %; Mean Corpuscular HGB Conc 32.9 g/dL (30.0-36.0); Mean Corpuscular Hemoglobin 28.5 pg (28.0-34.0); Mean Corpuscular Volume 86.4 fl (81-99); Monocytes # 0.6 10^3/uL (0.2-0.9); Neutrophils # 6.63 10^3/uL (1.8-7.7); Neutrophils % 78.9 %; Nucleated Red Blood Cells % 0 %; Platelet Count 236 10^3/cmm (130-400); Red Blood Count 4.92 10^6/uL (4.1-5.3); Red Cell Distribution Width 14.3 % (12.1-15.1); White Blood Count 8.4 10^3/uL (4.0-10.0)
[2021-11-16 17:21] LABS: Erythrocyte Sedimentation Rate 65 mm/hr (0-15)
[2021-11-16 17:38] LABS: Alanine Aminotransferase 26 U/L (0-33); Albumin Level 3.9 g/dL (3.5-5.2); Alkaline Phosphatase 137 IU/L (35-105); Anion Gap 18.9 (5-19); Aspartate Amino Transferase 25 U/L (0-32); Blood Urea Nitrogen 8 mg/dL (8-23); C Reactive Protein 117.5 mg/L (0.0-4.9); Carbon Dioxide 24 mmol/L (22-29); Chloride 91 mmol/L (98-107); Globulin 3.6 g/dL (1.3-4.6); Glucose 138 mg/dL (65-115); Osmolality Calculated 271 mOsm/kg (285-295); Potassium 3.9 mmol/L (3.5-5.1); Sodium 130 mmol/L (136-145); Total Bilirubin 0.3 mg/dL (0.15-1.2); Total Protein 7.5 g/dL (6.6-8.7)
[2021-11-16] MEDS: cefTRIAXone 1,000 MG in sodium chloride 0.9% (plus) 50 ML 100 MG IV (17:52)
[2021-11-16 18:01] LABS: Lactic Sepsis W/Reflex 1.1 mmol/L (0.5-2.2)
--- NOTE | 2021-11-16 19:04 | XRR_ITS ---
PROCEDURE INFORMATION: Exam: XR Right Hip Exam date and time: 11/16/2021 7:04 PM Age: 76 years old Clinical indication: Right hip; Prior surgery; Surgery date: 6+ months; Surgery type: Prosthetic; Patient HX: RT hip pain for 2 days; Additional info: Pain, cellulitis TECHNIQUE: Imaging protocol: XR Right hip. Views: 1 view hip with pelvis when performed. COMPARISON: CT abdomen pelvis w con* [id number] 04/15/2019 9:41 AM FINDINGS: Bones/joints: Right hip arthroplasty noted in expected alignment. No evidence of fracture or loosening. No irregular osseous erosions. Soft tissues: Unremarkable. XR/XR hip RT 2-3V wo/w pel* [id number] IMPRESSION: Right hip arthroplasty in expected alignment. No evidence of osteomyelitis.
--- NOTE | 2021-11-16 19:04 | XRR_ITS ---
PROCEDURE INFORMATION: Exam: XR Chest Exam date and time: 11/16/2021 7:04 PM Age: 76 years old Clinical indication: Cough and shortness of breath TECHNIQUE: Imaging protocol: XR of the chest. Views: 1 view. COMPARISON: CR XR chest 1V portable [id number] 01/29/2021 8:28 AM FINDINGS: Lungs: Mild diffuse coarsening of the lung parenchyma. No consolidation. Pleural spaces: No pleural effusion. No pneumothorax. Heart/Mediastinum: No cardiomegaly. Bones/joints: Sequela of ACDF in the mid cervical spine. Visualized osseous structures are intact. XR/XR chest 1V portable [id number] IMPRESSION: No acute findings.
[2021-11-16 20:03] VITALS: BP 130/78; PULSE 101; RESP 18; O2SAT 96
[2021-11-16] MEDS: sodium chloride 0.9% 1,000 ML 999 ML IV (22:22)
--- NOTE | 2021-11-16 22:37 | PM.HP ---
Providers/Chief Complaint Admitting Physician: Eddy Theodore DO Primary Care Provider: Randall Solitario MD Chief Complaint: R HIP PAIN REDNESS & SWELLING History of Present Illness The patient is a 76-year-old female who percent chief complaint of right hip pain. In the emergency department she is found to have colitis. The patient is a poor historian. She states that her symptoms started over the weekend however she cannot be more specific than this. She admits to onset of nausea. She denies fever, rigors, vomiting. She describes the pain as a dullness in her right hip. Upon initial questioning, she rates her right hip pain is a 10 out of 10 although her outward appearance does not come close to matching the subjective rating of pain. Upon further questioning she reports to have 8 out of 10 right hip pain. She denies injuring her hip or trauma otherwise. During my encounter with the patient I noticed that she has a history of bipolar disorder type I, schizophrenia, has numerous tattoos for a individual of her age and I again asked her about her past drug use. Initially she states she did not use drugs. Upon further questioning she indicates that she did use drugs however she is unable or unwilling to provide the names of the drugs that she has used in the past. She cites yellow pills . I informed her that I am uncertain as to what yellow pill she may be referring to and she becomes emotionally labile. She presents for further evaluation Review of Systems General: Reports: 10 or more systems reviewed and unremarkable except in HPI and below Medications/Allergies Home Medications Medication Instructions Recorded Confirmed Last Taken Type acetaminophen 325 mg capsule 650 mg PO TID@,, PRN cap 11/03/19 09/29/21 01/27/21 History (Tylenol) aspirin 81 mg tablet,delayed 81 mg PO DAILY@0800 11/03/19 09/29/21 01/27/21 History release (Adult Low Dose Aspirin) benztropine 0.5 mg tablet 0.5 mg PO BID@11/03/19 09/29/21 01/27/21 History bisacodyl 10 mg rectal suppository 10 mg DC DAILY PRN 11/03/19 09/29/21 Unknown History diclofenac sodium 1 % topical gel 2 gm TOPICAL TID@,,11/03/19 09/29/21 01/27/21 History (Voltaren) donepezil 10 mg tablet 10 mg PO DAILY@0800 11/03/19 09/29/21 01/27/21 History enema bag, disposable #50 each 11/03/19 09/29/21 Unknown History gabapentin 300 mg capsule 300 mg PO BID@08,20 11/03/19 09/29/21 01/27/21 History guaifenesin 100 mg/5 mL oral 200 mg PO Q4H PRN 11/03/19 09/29/21 Unknown History liquid (Letty-Tussin) hydroxyzine HCl 25 mg tablet 25 mg PO TID PRN 11/03/19 09/29/21 01/27/21 History lactulose 20 gram/30 mL oral 40 gm PO BID@08,20 PRN ml 11/03/19 09/29/21 01/27/21 History solution loratadine 10 mg tablet (Allergy 10 mg PO DAILY@0800 11/03/19 09/29/21 01/27/21 History Relief (loratadine)) magnesium hydroxide 400 mg/5 mL 30 ml PO DAILY PRN ml 11/03/19 09/29/21 Unknown History oral suspension (Aguilar Milk of MagnBusiness Combined) montelukast 10 mg tablet 10 mg PO DAILY@0800 11/03/19 09/29/21 01/27/21 History multivitamin 1 tab PO DAILY@0800 11/03/19 09/29/21 01/27/21 History pantoprazole 40 mg tablet,delayed 40 mg PO DAILY@0800 11/03/19 09/29/21 01/27/21 History release sennosides 8.6 mg capsule (senna) 8.6 mg PO BID@08,20 PRN 11/03/19 09/29/21 01/27/21 History sucralfate 1 gram tablet 1 gm PO BID@08,199911/03/19 09/29/21 01/27/21 History tramadol 50 mg tablet 50 mg PO Q6H PRN 11/03/19 09/29/21 01/27/21 14:00 History potassium chloride 20 mEq 20 meq PO DAILY@0800 09/28/20 09/29/21 01/27/21 History tablet,extended release furosemide 20 mg tablet 20 mg PO DAILY@0800 tab 09/29/20 09/29/21 01/27/21 History ipratropium 0.5 mg-albuterol 3 mg 3 ml INHALATION Q6H #360 ml 09/29/20 09/29/21 01/27/21 Rx (2.5 mg base)/3 mL nebulization soln buspirone 7.5 mg tablet 7.5 mg PO BID@,11/10/20 09/29/21 01/27/21 History roflumilast 500 mcg tablet 500 mcg PO DAILY@0800 11/10/20 09/29/21 01/27/21 History (Daliresp) aripiprazole 10 mg tablet (Abilify) 10 mg PO DAILY@0800 12/07/20 09/29/21 01/27/21 History spironolactone 25 mg tablet 25 mg PO BID@,12/07/20 09/29/21 01/27/21 History Enema Disposable 19 g DC DAILY PRN 01/27/21 09/29/21 Unknown History albuterol sulfate 90 mcg/actuation 2 puff INHALATION 6XD PRN 01/27/21 09/29/21 Unknown History aerosol inhaler (ProAir HFA) budesonide 0.5 mg/2 mL suspension 0.5 mg INHALATION BID@01/27/21 09/29/21 01/27/21 History for nebulization (Pulmicort) carbamide peroxide 6.5 % ear drops 5 drp OTIC (EAR) TID PRN 01/27/21 09/29/21 Unknown History (Debrox) nystatin 100,000 unit/gram topical 1 applic TOPICAL BID@01/27/21 09/29/21 01/27/21 History cream phenol 1.4 % mucosal aerosol spray See Rx Instructions .ROUTE .COMPLEX 01/27/21 09/29/21 Unknown History (Throat [place]) sodium chloride 1 gram tablet 1 g PO BID #30 tab 02/01/21 09/29/21 Unknown Rx carbamide peroxide 6.5 % ear drops 5 drp OTIC (EAR) DAILY 06/09/21 09/29/21 Unknown History (Debrox) albuterol sulfate 2.5 mg INHALATION DAILY PRN ml 07/18/21 09/29/21 Unknown History clonazepam 0.5 mg tablet 0.25 mg PO BID tab 08/18/21 09/29/21 Unknown History Allergies Allergy/AdvReac Type Severity Reaction Status Date / Time No Known Allergies Allergy Verified 09/29/21 11:09 PFSH Acute PFSH: Medical History Age related osteoporosis Bipolar 1 disorder Chronic hyponatremia COPD (chronic obstructive pulmonary disease) Degenerative arthritis of knee Dysphagia Dysthymic disorder Generalized anxiety disorder Neuritis Other schizophrenia Psychiatric care Schizophrenia Social History Quit status (tobacco): has quit using tobacco Year quit tobacco: 2004 Former quit date comment: 0.5 ppd x 45 Years Second hand smoke exposure: Yes Smoking risk assessment/counseling performed?: No Alcohol intake: never Desire information about alcohol rehabilitation?: No Counseling given: No Desire information about substance/drug rehabilitation?: No Counseling given: No Caregiver/support person: Yes Lives independently: No Housing: Long-Term Marital status: Unknown Current occupational status: retired History of recent travel: No Current gender identity: Female Vitals/I&O/Wt Last Vital Signs Pulse 101 H 11/16/21 20:03 Resp 18 11/16/21 20:03 BP 130/78 11/16/21 20:03 Pulse Ox 96 11/16/21 20:03 11/16/21 11/16/21 11/16/21 06:59 14:59 22:59 Intake Total 550 / 550 Balance 550 / 550 Weight last 48 hrs Weight 106.594 kg Physical Exam Const: COMMON NORMALS: no acute distress, average body habitus, patient oriented x3, no limitations, healthy appearing, alert and well nourished HENMT: COMMON NORMALS: normocephalic, atraumatic, hearing grossly normal bilaterally, external ears normal, EAC's normal, TM's normal bilaterally, Normal external nose present, Normal nasal mucous membranes and turbinates present, moist oral mucous membranes, oropharynx normal, dentition normal and gingiva normal FACE & SINUS: normal facial exam NOSE: Normal external nose present EXTERNAL EAR: Yes external ears normal Eye: COMMON NORMALS: Equal, round and reactive pupils present, EOMs intact bilaterally, conjunctivae normal, no scleral icterus, no papilledema, normal visual erazo by confrontation and fundi normal bilaterally GENERAL EYE: appearance normal, both eyes and all related structures ALIGNMENT: Yes alignment normal Neck/C-Spine: COMMON NORMALS: full ROM GENERAL: Yes normal visual inspection Chest: COMMONS NORMALS: normal inspection of the chest, normal palpation of entire chest wall, normal inspection of the breasts and normal palpation of the breasts Resp: COMMON NORMALS: normal respiratory effort, No retractions, No use of accessory muscles, clear to auscultation bilaterally and percussion normal AUSCULTATION: clear to auscultation bilaterally Cardio: COMMON NORMALS: no JVD, regular rate, regular rhythm, S1 normal heart sound present, S2 normal heart sound present, No gallops present (Cardio), No clicks present (Cardio), No murmurs present (Cardio), No rub (Cardio) and Peripheral pulses 2+ throughout GI: COMMON NORMALS: Normal to inspection, nondistended, normoactive bowel sounds present, Soft to palpation, non-tender, No hepatosplenomegaly present, no masses and no bruits : COMMON NORMALS: Yes no CVA tenderness, Yes normal external appearance, Yes normal appearance of the vagina, Yes normal appearance of the cervix, Yes normal bimanual exam, Yes No adnexal tenderness and Yes no masses Back/Pelvis: THORACIC SPINE/UPPER BACK: Yes normal to inspection LUMBAR SPINE/LOWER BACK: Yes normal to inspection Extremity: COMMON NORMALS: normal to inspection GENERAL: Yes normal exam except as noted Neuro: COMMON NORMALS: patient oriented x3, CN's II-XII intact bilaterally, moves all extremities, no focal motor deficits, no sensory deficits noted, deep tendon reflexes 2+ bilaterally and gait normal CRANIAL NERVES: Yes CN normal except as noted DEEP TENDON REFLEXES: Right triceps reflex intensity grade: 2+, Left triceps reflex intensity grade: 2+, Rt Biceps (C5, C6): 2+, Left biceps reflex intensity grade: 2+, Right brachioradialis reflex intensity grade: 2+, Left brachioradialis reflex intensity grade: 2+, Right patellar reflex intensity grade: 2+, Left patellar reflex intensity grade: 2+, Right ankle reflex intensity grade: 2+ and Left ankle reflex intensity grade: 2+ PLANTAR REFLEX: downgoing: bilateral, upgoing (positive Babinski): bilateral, equivocal: bilateral and other: bilateral PUPIL EXAM: Normal pupillary reactivity/response: bilateral, Dilated: bilateral, Pinpoint: bilateral, Mid position: bilateral, Sluggish: bilateral and Fixed/non-reactive: bilateral Psych: COMMON NORMALS: mental status grossly normal, Normal thought process present, cooperative, normal affect, speech normal, activity/motor behavior normal, denies hallucinations, denies homicidal ideation and denies suicidal ideation Data : 11/16/21 17:00 11/16/21 17:00 Micro: Microbiology 11/16/21 17:47 Blood Culture - Preliminary Blood SPECIMEN COLLECTED 11/16/21 17:33 Blood Culture - Preliminary Blood SPECIMEN COLLECTED A&P Assessment and plan (1) Cellulitis: Status: Acute Plan Right hip cellulitis. Blood culture ?2 pending. Vancomycin 1 g IV every 12 hours to be dosed by pharmacy plus Zosyn 3.375 g IV every 6 hours. The nurses have been ordered to demarcate and 8 the margin of erythema of the right hip daily to ensure recession Seasonal allergies Neuropathy Dementia Osteoarthritis Schizophrenia Hyponatremia, chronic,. Will monitor sodium level intimately Constipation COPD. Patient uses O2 via nasal cannula at home intermittently CHF, ejection fraction 50-55% with grade 1 diastolic dysfunction Hypertension Obesity. The patient becomes regarding lifestyle modification Osteoporosis Dysthymia DVT Proflex is. Lovenox 40 Mill grams subcu tensely daily Attestations Medical Necessity Statement*: Patient's hospitalization is medically necessary as witnessed by this H&P. Anticipated hospitalization greater than 48 hours Coding Level of Care Code Acute Lace Winder for Tita Lanier Diagnoses Cellulitis L03.90
[2021-11-17] VITALS (9 sets, daily range): BP systolic 113–154; BP diastolic 65–82; PULSE 82–107; RESP 16–22; TEMP 36.6–36.7; O2SAT 92–97
[2021-11-17] MEDS: TRAMadol 50 mg Tablet PO ×2 (00:02→14:01)
[2021-11-17] MEDS: piperacillin-tazobactam 3.375 GM in sodium chloride 0.9% (plus) 50 ML IV ×3 (02:19→18:30)
[2021-11-17] MEDS: enoxaparin 40 mg/0.4 mL Syringe SUBCUT (02:19)
--- NOTE | 2021-11-17 03:59 | PC.NURSE ---
Pt assisted in use of bed perez. Comfort measures provided, no other immediate needs identified, will continue to monitor.
[2021-11-17 06:27] LABS: Sodium 128 mmol/L (136-145)
[2021-11-17] MEDS: vancomycin 1,000 MG in sodium chloride 0.9% 250 ML 250 MG IV ×2 (07:25→21:19)
--- NOTE | 2021-11-17 13:29 | US_ITS ---
WS: [id number] INDICATION: RIGHT hip pain TECHNIQUE: Ultrasound soft tissue area of concern FINDINGS: Ultrasound soft tissue area of concern RIGHT hip. Subcutaneous edema in the underlying soft tissues in the area of concern. No evidence of drainable abscess or drainable fluid collection. Gene mmend correlation for cellulitis. Subcutaneous edema is deep to the scar site. US/US soft tissue/extremity [id number] IMPRESSION: Moderate diffuse subcutaneous edema deep to the scar site in the ar ea of concern. Recommend correlation for cellulitis. No drainable fluid collect ion or abscess.
[2021-11-17] MEDS: pantoprazole DR 40 mg Tablet PO (13:57)
[2021-11-17] MEDS: montelukast sodium 10 mg Tablet PO (13:57)
[2021-11-17] MEDS: ARIPiprazole 10 mg Tablet PO (13:57)
[2021-11-17] MEDS: roflumilast 500 mcg Tablet PO (13:57)
[2021-11-17] MEDS: gabapentin 300 mg Capsule PO ×2 (13:57→21:18)
--- NOTE | 2021-11-17 14:37 | P.PN_ITS ---
Subjective Subjective: She is having pain and tenderness at the lateral aspect of the right thigh, extending across to right lateral hip, onto the right buttock. Pain gets worse with pressure in the area, with repositioning. Vitals/I&O/Wt Last Vital Signs Temp 98.0 F 11/17/21 08:04 Pulse 98 11/17/21 08:04 Resp 20 H 11/17/21 08:04 BP 154/82 11/17/21 08:04 Pulse Ox 93 11/17/21 08:04 11/16/21 11/17/21 11/17/21 22:59 06:59 14:59 Intake Total 550 / 550 1050 / 1600 250 / 250 Balance 550 / 550 1050 / 1600 250 / 250 Weight last 48 hrs Weight 106.594 kg Physical Exam Const: COMMON NORMALS: no acute distress and patient oriented x3 NUTRITIONAL APPEARANCE: obese HENMT: COMMON NORMALS: oropharynx normal Neck/C-Spine: COMMON NORMALS: no JVD Resp: COMMON NORMALS: normal respiratory effort and clear to auscultation bilaterally AUSCULTATION: clear to auscultation bilaterally Cardio: COMMON NORMALS: no JVD, regular rhythm, S1 normal heart sound present, S2 normal heart sound present and No murmurs present (Cardio) RHYTHM: regular rhythm HEART SOUNDS: S1 normal heart sound present and S2 normal heart sound present GI: COMMON NORMALS: Normal to inspection, nondistended, normoactive bowel sounds present, Soft to palpation and non-tender PALPATION: Yes Soft to palpation Extremity: COMMON NORMALS: no joint enlargement and no pedal edema Neuro: COMMON NORMALS: patient oriented x3 and moves all extremities Skin: COMMON NORMALS: no rashes or lesions noted GENERAL SKIN EXAM: no rashes or lesions noted RASHES: rashes noted (R thigh extending from R upper lateral buttock over hip, lateral thigh) Includes healed scar from prior hip arthroplasty Data : 11/16/21 17:00 11/17/21 05:49 Micro: Microbiology 11/16/21 17:47 Blood Culture - Preliminary Blood SPECIMEN COLLECTED 11/16/21 17:33 Blood Culture - Preliminary Blood SPECIMEN COLLECTED A&P Assessment and plan (1) Cellulitis: Large area of cellulitis overlying also scar from past right JERAMY. Continue vancomycin this time. Blood cultures have been obtained. With underlying scar, prior JERAMY, concern for possibility of deeper infection. This morning requested also soft tissue ultrasound to exclude fluid collection/abscess. Possibly trending toward early sepsis on presentation with tachycardia, 101-130 bpm, leukocytosis 10.9. Improving. Now leukocytosis resolved, tachycardia karlene r, heart rate 98 bpm. Status: Acute Plan Seasonal allergies Neuropathy Dementia Osteoarthritis Schizophrenia: resumed medicines Hyponatremia, chronic,. Will monitor sodium level intimately Constipation COPD. Patient uses O2 via nasal cannula at home intermittently CHF, ejection fraction 50-55% with grade 1 diastolic dysfunction Hypertension Obesity. The patient becomes regarding lifestyle modification Osteoporosis Dysthymia DVT Proflex is. Lovenox 40 Mill grams subcu tensely daily Attestations Medical Necessity Statement*: Continue admission for assessment of management of large area of cellulitis, overlying scar/past surgical area of old right JERAMY. Coding Level of Care Code Acute [employer] for Tita Lanier Exam Comprehensive Diagnoses Cellulitis L03.90
[2021-11-17] MEDS: ipratropium-albuterol 3 mL Neb INHALATION ×2 (15:34→20:20)
[2021-11-17] MEDS: budesonide 0.5 mg/2 mL Neb INHALATION (20:20)
[2021-11-17] MEDS: BuSPIRONE 10 mg Tablet 7.5 MG PO (21:18)
[2021-11-17] MEDS: benztropine 1 mg Tablet 0.5 MG PO (21:18)
[2021-11-17] MEDS: CLONazepam 0.5 mg Tablet 0.25 MG PO (21:19)
[2021-11-17] MEDS: sucralfate 1 gm Tablet PO (21:19)
[2021-11-17] MEDS: spironolactone 25 mg Tablet PO (21:19)
[2021-11-17] MEDS: acetaminophen 325 mg Tablet 650 MG PO (21:25)
--- NOTE | 2021-11-17 22:28 | PC.NURSE ---
Patient to be transferred to [facility] room 264. Will go by bed. Report called to JOSE JUAN Arora. Informed patient of move. Patient agreeable.
[2021-11-18] VITALS (11 sets, daily range): BP systolic 127–145; BP diastolic 71–84; PULSE 65–95; RESP 18; TEMP 36.4–36.9; O2SAT 93–97
[2021-11-18] MEDS: enoxaparin 40 mg/0.4 mL Syringe SUBCUT (00:26)
[2021-11-18] MEDS: ipratropium-albuterol 3 mL Neb INHALATION ×2 (02:38→14:39)
[2021-11-18] MEDS: piperacillin-tazobactam 3.375 GM in sodium chloride 0.9% (plus) 50 ML IV ×2 (03:45→11:03)
[2021-11-18 06:05] LABS: Basophils % 0.3 %; Eosinophils % 0.2 %; Hematocrit 40.8 % (37.0-47.0); Hemoglobin 13.2 g/dL (11.5-15.3); Lymphocytes # 1.3 10^3/uL (0.8-4.8); Lymphocytes % 22.1 %; Mean Corpuscular HGB Conc 32.4 g/dL (30.0-36.0); Mean Corpuscular Hemoglobin 28.1 pg (28.0-34.0); Monocytes # 0.5 10^3/uL (0.2-0.9); Monocytes % 7.8 %; Neutrophils # 3.98 10^3/uL (1.8-7.7); Neutrophils % 68.9 %; Nucleated Red Blood Cells % 0 %; Platelet Count 257 10^3/cmm (130-400); Red Blood Count 4.69 10^6/uL (4.1-5.3); Red Cell Distribution Width 14.1 % (12.1-15.1); White Blood Count 5.8 10^3/uL (4.0-10.0)
[2021-11-18 06:28] LABS: Anion Gap 15.7 (5-19); Blood Urea Nitrogen 7 mg/dL (8-23); Calcium 9.5 mg/dL (8.5-10.5); Carbon Dioxide 25 mmol/L (22-29); Chloride 93 mmol/L (98-107); Glucose 104 mg/dL (65-115); Osmolality Calculated 266 mOsm/kg (285-295); Potassium 4.7 mmol/L (3.5-5.1); Sodium 129 mmol/L (136-145)
[2021-11-18] MEDS: vancomycin 1,000 MG in sodium chloride 0.9% 250 ML 250 MG IV (08:39)
[2021-11-18] MEDS: loratadine 10 mg Tablet PO (08:42)
[2021-11-18] MEDS: CLONazepam 0.5 mg Tablet 0.25 MG PO (08:42)
[2021-11-18] MEDS: pantoprazole DR 40 mg Tablet PO (08:42)
[2021-11-18] MEDS: gabapentin 300 mg Capsule PO (08:42)
[2021-11-18] MEDS: ARIPiprazole 10 mg Tablet PO (08:42)
[2021-11-18] MEDS: donepezil 5 MG Tablet 10 MG PO (08:42)
[2021-11-18] MEDS: montelukast sodium 10 mg Tablet PO (08:42)
[2021-11-18] MEDS: benztropine 1 mg Tablet 0.5 MG PO (08:42)
[2021-11-18] MEDS: roflumilast 500 mcg Tablet PO (08:42)
[2021-11-18] MEDS: FUROsemide 20 mg Tablet 40 MG PO (08:43)
[2021-11-18] MEDS: spironolactone 25 mg Tablet PO (08:43)
[2021-11-18] MEDS: sucralfate 1 gm Tablet PO (08:43)
[2021-11-18] MEDS: BuSPIRONE 10 mg Tablet 7.5 MG PO (08:43)
[2021-11-18] MEDS: TRAMadol 50 mg Tablet PO (08:50)
[2021-11-18] MEDS: acetaminophen 325 mg Tablet 650 MG PO (08:50)
--- NOTE | 2021-11-18 10:23 | PC.CHAP ---
Pastoral Care Encounter/Spiritual Assessment Type of Contact [] Declined field staff manager visit [] Patient/Family/Request visit [] Outpatient visit [] Follow-up visit [] Physician referral [] Code/Alert [x] Routine visit [] Staff referral [] Actively dying [] Patient sleeping [] Family support [] [] Out of room [] Palliative care [] [] Receiving care in room [] Pre-surgical visit [] Trauma [] Long length of stay [] ICU visit [] Other: Relational/Emotional Strength [x] Patient feels connected with others/family/visitors/staff [] Distress [] Loneliness/isolation [] Abandonment Spirituality of Patient [x] Person of Britney [] Attends Temple of their Britney [x] Believes in Prayer [] Reads Bible or Sikh materials [] There are Spiritual issues to be addressed Car Conditioner Interventions [x] Prayer [x] Active listening [x] Non-anxious presence [] Spiritual/emotional support [] Crisis/trauma care [x] Spiritual counseling [] Bereavement support [] Provided bereavement packet [] Provided Bible/devotional materials [] Provided toy/stuffed animal, coloring book to patient or family member [] Provided Communion [] Anointing/Winifred [] Salvation x[] Completed spiritual assessment [] Other: Impact on Illness or Injury [] Angry [] Fearful [] Anxious [] Often cries [] Exhaustion [] Unable to work [] Unable to attend baptist [] Unable to walk/stand [] Unable to read [] Unable to drive [] Unable to eat/drink [] Unable to sleep [] Unable to be with family [] Patient intubated [] Other: Summary Time spent with patient 10 min
--- NOTE | 2021-11-18 16:01 | PC.NURSE ---
Report called to Evaristo at this time. This nurse was on hold for 12 minutes. Malini notified of patient having a ride set up for 4:00.
[2021-11-18 17:03] LABS: SARS Covid-2 Antigen Negative (Negative)
--- NOTE | 2021-11-18 22:19 | PM.DCS ---
Discharge Providers Date of Admission: 11/17/21 01:00 Date of Discharge: November 18, 2021 Attending Provider at Admission: Eddy Theodore DO Attending Provider at Discharge: Delta Navarro Primary Care Provider: Randall Solitario MD Diagnoses at Discharge Discharge Diagnosis (1) Cellulitis: Status: Acute Reason for Visit Reason for Visit: R HIP PAIN REDNESS & SWELLING Hospital Course Hospital Course Pleasant 76-year-old lady was treated and monitored in the hospital due to cellulitis overlying right lateral thigh, extending to right upper lateral buttock/lower right flank. 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 Ultrasound was obtained without finding of deeper infection. No pain on PROM of right hip. At this time joint infection not suspected, although cellulitis is overlying old scar over remote JERAMY performed here in the past by Dr. Marshall 90. Blood cultures were obtained, preliminary negative to date. Today area of erythema with good improvement with large portion of the distal half becoming dull/dark, with improving symptoms. She will complete antibiotic course after discharge with Cipro and doxycycline. Please refer for follow-up with infectious disease specialist for recurrent cellulitis in various areas of lower extremities. Physical Exam Narrative: Sister at bedside Const: COMMON NORMALS: no acute distress and patient oriented x3 NUTRITIONAL APPEARANCE: obese HENMT: COMMON NORMALS: oropharynx normal Neck/C-Spine: COMMON NORMALS: no JVD Resp: COMMON NORMALS: normal respiratory effort and clear to auscultation bilaterally AUSCULTATION: clear to auscultation bilaterally Cardio: COMMON NORMALS: no JVD, regular rhythm, S1 normal heart sound present, S2 normal heart sound present and No murmurs present (Cardio) RHYTHM: regular rhythm HEART SOUNDS: S1 normal heart sound present and S2 normal heart sound present GI: COMMON NORMALS: Normal to inspection, nondistended, normoactive bowel sounds present, Soft to palpation and non-tender PALPATION: Yes Soft to palpation Extremity: COMMON NORMALS: no joint enlargement and no pedal edema Neuro: COMMON NORMALS: patient oriented x3 and moves all extremities Skin: COMMON NORMALS: no rashes or lesions noted GENERAL SKIN EXAM: no rashes or lesions noted RASHES: rashes noted (R thigh extending from R upper lateral buttock over hip, lateral thigh. ) Improving with now dull distal half. Discharge Data Studies Completed and Pending Completed Studies During Hospitalization Category Date Time Status XR chest 1V portable [id number] Urgent Exams 11/16/21 19:04 Completed XR hip RT 2-3V wo/w pel* [id number] Urgent Exams 11/16/21 19:04 Completed US soft tissue/extremity [id number] Routine Ultrasound 11/17/21 13:29 Completed Pending at discharge Category Date Time Status Blood Culture Stat Lab 11/16/21 17:47 Results Radiology Impressions Chest X-Ray 11/16/21 19:04 IMPRESSION: No acute findings. Hip/Pelvis X-Ray 11/16/21 19:04 IMPRESSION: Right hip arthroplasty in expected alignment. No evidence of osteomyelitis. Soft Tissue Ultrasound 11/17/21 13:29 IMPRESSION: Moderate diffuse subcutaneous edema deep to the scar site in the area of concern. Recommend correlation for cellulitis. No drainable fluid collection or abscess. Laboratory Results WBC 5.8 10^3/uL (4.0-10.0) 11/18/21 05:36 RBC 4.69 10^6/uL (4.1-5.3) 11/18/21 05:36 Hgb 13.2 g/dL (11.5-15.3) 11/18/21 05:36 Hct 40.8 % (37.0-47.0) 11/18/21 05:36 MCV 87.0 fl (81-99) 11/18/21 05:36 MCH 28.1 pg (28.0-34.0) 11/18/21 05:36 MCHC 32.4 g/dL (30.0-36.0) 11/18/21 05:36 RDW 14.1 % (12.1-15.1) 11/18/21 05:36 Plt Count 257 10^3/cmm (130-400) 11/18/21 05:36 MPV 9.0 fL (7.4-10.4) 11/18/21 05:36 Neut % (Auto) 68.9 % 11/18/21 05:36 Lymph % (Auto) 22.1 % 11/18/21 05:36 [place] % (Auto) 7.8 % 11/18/21 05:36 Eos % (Auto) 0.2 % 11/18/21 05:36 Baso % (Auto) 0.3 % 11/18/21 05:36 Neut # (Auto) 3.98 10^3/uL (1.8-7.7) 11/18/21 05:36 Lymph # (Auto) 1.3 10^3/uL (0.8-4.8) 11/18/21 05:36 [place] # (Auto) 0.5 10^3/uL (0.2-0.9) 11/18/21 05:36 Eos # (Auto) 0.0 10^3/uL (0.0-0.8) 11/18/21 05:36 Baso # (Auto) 0.0 10^3/uL (0.0-0.1) 11/18/21 05:36 Nucleated RBC % (auto) 0 % 11/18/21 05:36 Nucleated RBCs # 0.0 /100WBC 11/18/21 05:36 ESR 65 mm/hr (0-15) H 11/16/21 17:00 Sodium 129 mmol/L (136-145) L 11/18/21 05:36 Potassium 4.7 mmol/L (3.5-5.1) 11/18/21 05:36 Chloride 93 mmol/L (98-107) L 11/18/21 05:36 Carbon Dioxide 25 mmol/L (22-29) 11/18/21 05:36 Anion Gap 15.7 (5-19) 11/18/21 05:36 BUN 7 mg/dL (8-23) L 11/18/21 05:36 Creatinine 0.5 mg/dL (0.5-0.9) 11/18/21 05:36 GFR Calculation Not Reportable 11/18/21 05:36 Glucose 104 mg/dL (65-115) 11/18/21 05:36 Calculated Osmolality 266 mOsm/kg (285-295) L 11/18/21 05:36 Lactic Acid 1.1 mmol/L (0.5-2.2) 11/16/21 17:33 Calcium 9.5 mg/dL (8.5-10.5) 11/18/21 05:36 Total Bilirubin 0.3 mg/dL (0.15-1.2) 11/16/21 17:00 AST 25 U/L (0-32) 11/16/21 17:00 ALT 26 U/L (0-33) 11/16/21 17:00 Alkaline Phosphatase 137 IU/L (35-105) H 11/16/21 17:00 C-Reactive Protein 117.5 mg/L (0.0-4.9) H 11/16/21 17:00 Total Protein 7.5 g/dL (6.6-8.7) 11/16/21 17:00 Albumin 3.9 g/dL (3.5-5.2) 11/16/21 17:00 Globulin 3.6 g/dL (1.3-4.6) 11/16/21 17:00 SARS-CoV-2 Ag (Rapid) Negative (Negative) 11/18/21 15:45 Vitals Last Vital Signs Temp 97.8 F 11/18/21 17:39 Pulse 93 11/18/21 17:39 Resp 18 11/18/21 17:39 BP 127/80 11/18/21 17:39 Pulse Ox 96 11/18/21 17:39 Discharge Plan Discharge Patient Disposition: Xfer SNF Condition: Stable Prescriptions: New ciprofloxacin HCl 500 mg tablet 500 mg PO BID Qty: 14 0RF doxycycline hyclate 100 mg capsule 100 mg PO BID 7 Days Qty: 14 0RF Continued tramadol 50 mg tablet 50 mg PO Q6H PRN (Reason: Pain) 0RF senna 8.6 mg capsule 8.6 mg PO BID@08,20 PRN (Reason: Constipation) 0RF pantoprazole 40 mg tablet,delayed release (DR/EC) 40 mg PO DAILY@0800 0RF (DME) enema bag, disposable Misc See Rx Instructions .ROUTE .MEDSUPPLY Qty: 50 0RF Rx Instructions: As directed bisacodyl 10 mg suppository 10 mg MA PRN PRN (Reason: Constipation) 0RF magnesium hydroxide [Aguilar Milk of Magnesia] 400 mg/5 mL suspension 30 ml PO DAILY PRN (Reason: Constipation) 0RF aspirin [Adult Low Dose Aspirin] 81 mg tablet,delayed release (DR/EC) 81 mg PO DAILY@0800 0RF benztropine 0.5 mg tablet 0.5 mg PO BID@08,20 0RF donepezil 10 mg tablet 10 mg PO DAILY@0800 0RF loratadine [Allergy Relief (loratadine)] 10 mg tablet 10 mg PO DAILY@0800 0RF montelukast 10 mg tablet 10 mg PO DAILY@0800 0RF multivitamin Tablet 1 tab PO DAILY@0800 0RF sucralfate 1 gram tablet 1 gm PO BID@0800,2000 0RF acetaminophen [Tylenol] 325 mg capsule 650 mg PO PRN 0RF lactulose 20 gram/30 mL solution 40 gm PO BID@08,20 PRN (Reason: UNKNOWN) 0RF gabapentin 300 mg capsule 300 mg PO BID@08,20 0RF spironolactone 25 mg tablet 25 mg PO BID@08,20 0RF aripiprazole [Abilify] 10 mg tablet 10 mg PO DAILY@0800 0RF carbamide peroxide [Debrox] 6.5 % drops 5 drp otic (ear) DAILY PRN (Reason: Ear Wax) 0RF albuterol sulfate 2.5 mg /3 mL (0.083 %) solution for nebulization 2.5 mg inhalation PRN PRN (Reason: shortness of breath or wheezing) 0RF potassium chloride 20 mEq tablet extended release 20 meq PO DAILY@0800 0RF furosemide 20 mg tablet 40 mg PO DAILY@0800 0RF ipratropium-albuterol 0.5 mg-3 mg(2.5 mg base)/3 mL solution for nebulization 3 ml inhalation Q6H Qty: 360 3RF Rx Instructions: USE AT 08,12,16,20 buspirone 7.5 mg tablet 7.5 mg PO BID@08,20 0RF clonazepam 0.5 mg tablet 0.5 mg PO DAILY 0RF clonazepam 0.25 mg Tablet,Disintegrating 0.25 mg PO DAILY 0RF Daliresp 500 mcg Tablet 500 mcg PO DAILY 0RF guaifenesin [Siltussin SA] 100 mg/5 mL Liquid 200 mg PO Q4-5H PRN (Reason: Cough) 0RF tramadol 100 mg Tablet 100 mg PO Q6H PRN (Reason: Pain) 0RF Senna-Time S 8.6 tab PO TID PRN (Reason: Constipation) 0RF Throat [place] 1.4 % Aerosol,[place] See Rx Instructions .ROUTE .COMPLEX 0RF Rx Instructions: spray to affected mucosal area DIRECTED. Enema Disposable 19 g MA DAILY PRN (Reason: Constipation) 0RF albuterol sulfate [ProAir HFA] 90 mcg/actuation Hfa Aerosol Inhaler 2 puff INHALATION 6XD PRN (Reason: UNKNOWN) 0RF budesonide [Pulmicort] 0.5 mg/2 mL suspension for nebulization 0.5 mg inhalation BID@08,20 0RF Discharge Orders: Discharge Order (Routine); Ordered 11/18/21 Ordered By: Delta Navarro Referrals: [facility] [Outside] Randall Solitario MD [Primary Care Provider] - 4-7 days Discharge Diet: Diabetic Discharge Activity: Increase activity as tolerated Patient Instructions: Ciprofloxacin (By mouth), Doxycycline (By mouth), Cellulitis (GEN), Opioid Safety Activity Restrictions/Additional Instructions: Please refer for assessment by infectious disease specialist due to recurrent cellulitis of lower extremities. In case of recurrent cellulitis overlying surgical area of the past right JERAMY, consider additional assessment by MRI of the joint and follow-up with orthopedics. Discharge Attestations Time Spent in Discharge Care*: greater than 30 min Status at Discharge: Cognitive status at discharge: moderately impaired cognition, Behavioral status at discharge: cooperative, Quality Metrics Clinical Quality Measures [ No reported AMI, CVA or VTE this stay] Coding Level of Care Code Acute Chg FW DC note Diagnoses Cellulitis L03.90
== END 2021-11-18 17:40 | disposition skilled nursing facility (03) ==
LOC: ER 20:52 → MEDSURG 22:13 → ER IP 11-17 01:06 → CSU 11-17 16:48 → ER IP 11-18 13:04 → MEDSURG 11-18 13:04
PROVIDERS: Admitting Provider Internal Medicine; Emergency Provider Emergency Medicine; PCP Family Medicine; Visit Provider Internal Medicine
DX: L03.115 Cellulitis of right lower limb (principal); Z86.14 Personal history of Methicillin resistant Staphylococcus aureus infection; I50.32 Chronic diastolic (congestive) heart failure; I11.0 Hypertensive heart disease with heart failure; F03.90 Unspecified dementia, unspecified severity, without behavioral disturbance, psychotic disturbance, mood disturbance, and anxiety; M19.90 Unspecified osteoarthritis, unspecified site; F20.9 Schizophrenia, unspecified; J44.9 Chronic obstructive pulmonary disease, unspecified; K59.00 Constipation, unspecified; E87.1 Hypo-osmolality and hyponatremia; Z99.81 Dependence on supplemental oxygen; M81.0 Age-related osteoporosis without current pathological fracture; Z87.891 Personal history of nicotine dependence
CPT/HCPCS: 36415; 71045; 73502; 76882; 80048; 80053; 83605; 84295; 85025; 85651; 86140; 87040; 87426; 94640; 96365; 96366; 96367; 96372; 99285; G0378; J0696; J1650; J2543; J3370; J7030; J7040; J7050; J7626

== ENCOUNTER → 2021-12-06 13:45 | Outpatient (BNVA) | payer MEDICARE, MEDICAID, SELFPAY | PROVIDERS: PCP Family Medicine; Visit Provider Internal Medicine | DX: Z53.9 Procedure and treatment not carried out, unspecified reason (principal) ==

== ENCOUNTER → 2021-12-14 08:47 | Outpatient (BNVA) | payer MEDICARE, MEDICAID, SELFPAY | PROVIDERS: PCP Family Medicine; Visit Provider Nurse Practitioner Family | DX: R07.9 Chest pain, unspecified (principal); J42 Unspecified chronic bronchitis; R60.0 Localized edema; Z87.891 Personal history of nicotine dependence | CPT/HCPCS: 99213 ==

== ENCOUNTER → 2022-02-02 08:02 | Outpatient (BNVA) | payer MEDICARE, MEDICAID, SELFPAY | PROVIDERS: PCP Family Medicine; Visit Provider Specialist | DX: Z71.89 Other specified counseling (principal); M17.12 Unilateral primary osteoarthritis, left knee | CPT/HCPCS: 20610; J1100; J2795; J3301 ==

== ENCOUNTER → 2022-02-28 07:50 | Outpatient (BNVA) | payer MEDICARE, MEDICAID, SELFPAY | PROVIDERS: PCP Family Medicine; Visit Provider Nurse Practitioner | DX: F41.1 Generalized anxiety disorder (principal); F34.1 Dysthymic disorder; F20.89 Other schizophrenia | CPT/HCPCS: 99214 ==

== ENCOUNTER → 2022-05-04 09:46 | Outpatient (BNVA) | payer MEDICARE, MEDICAID, SELFPAY | PROVIDERS: PCP Family Medicine; Visit Provider Specialist | DX: M17.12 Unilateral primary osteoarthritis, left knee (principal) | CPT/HCPCS: 20610; J1100; J2795; J3301 ==

== ENCOUNTER 2022-08-02 12:20 | Emergency (ER) | payer MEDICARE, MEDICAID, SELFPAY ==
[2022-08-02] VITALS (8 sets, daily range): BP systolic 145–170; BP diastolic 78–104; PULSE 83–108; RESP 18–20; O2SAT 93–96; BMI 41.1
--- NOTE | 2022-08-02 12:22 | W.ED.CHESTPA ---
HPI - Chest Pain General: Chief Complaint: Chest Pain Stated Complaint: Chest Pressure Time Seen by Provider: 08/02/22 12:22 History of Present Illness: Ms. Agarwal is a 77-year-old lady with complex past medical history including COPD presenting to the emergency department due to chest discomfort. She reports onset of symptoms last night initially with a burning feeling in the middle of her chest and then subsequently has had a heaviness. She does endorse mild increased shortness of breath. Cough is baseline. Intensity symptoms is moderate. No significant radiation or other typical cardiac features. No other specific changes in health, exacerbating, or alleviating factors identified. Onset (ago): day(s) Timing of current episode: constant Prior episodes: Yes Onset: during rest Pain location: substernal Severity: moderate Quality: heaviness and burning Relieving factors: nothing Exacerbating factors: nothing Review of Systems General: Reports: 10 or more systems reviewed and unremarkable except in HPI and below PFSH ED PFSH: Medical History Age related osteoporosis Bipolar 1 disorder Chronic hyponatremia COPD (chronic obstructive pulmonary disease) Degenerative arthritis of knee Dysphagia Dysthymic disorder Generalized anxiety disorder Neuritis Other schizophrenia Psychiatric care Schizophrenia Social History Smoking and tobacco status: former smoker Quit status (tobacco): has quit using tobacco Year quit tobacco: 2004 Former quit date comment: 0.5 ppd x 45 Years Second hand smoke exposure: Yes Smoking risk assessment/counseling performed?: No Alcohol intake: never Desire information about alcohol rehabilitation?: No Counseling given: No Desire information about substance/drug rehabilitation?: No Counseling given: No Caregiver/support person: Yes Lives independently: No Housing: Long Term Marital status: Unknown Current occupational status: retired History of recent travel: No Current gender identity: Female Physical Exam Const: COMMON NORMALS: alert GENERAL APPEARANCE: cooperative, well developed and ill appearing (Mild, chronically) HENMT: COMMON NORMALS: normocephalic and atraumatic HEAD & SCALP: normocephalic and atraumatic Eye: COMMON NORMALS: conjunctivae normal CONJUNCTIVA: Yes conjunctivae normal SCLERA: sclerae normal Neck/C-Spine: COMMON NORMALS: supple GENERAL: Yes trachea midline Resp: EFFORT & INSPECTION: Yes able to speak in complete sentences AUSCULTATION: wheezes and diminished lung sounds Cardio: COMMON NORMALS: regular rate and regular rhythm RATE: regular rate RHYTHM: regular rhythm GI: COMMON NORMALS: Soft to palpation PALPATION: Yes Soft to palpation and No Tenderness to palpation present (GI) Extremity: GENERAL: Yes normal exam except as noted and No edema Neuro: COMMON NORMALS: moves all extremities SENSORIUM/ORIENTATION: Yes alert and No Orientation impaired Psych: COMMON NORMALS: mental status grossly normal and Normal thought process present THOUGHT PROCESS: Normal thought process present Course Vital Signs: Vital signs: Vital Signs Pulse Rate 108 H 08/02/22 18:22 Respiratory Rate 20 H 08/02/22 18:22 Blood Pressure 170/104 08/02/22 18:22 Pulse Oximetry 94 08/02/22 18:22 Oxygen Delivery Me thod 08/02/22 18:22 Oxygen Flow Rate 2 08/02/22 18:22 MDM - Chest Pain Medical Decision Making 77-year-old lady presenting with chest pressure. Patient is nontoxic in appearance. EKG shows sinus rhythm with nonspecific ST segment abnormalities, no STEMI. Labs with unremarkable hematologic panel. Metabolic panel with perhaps mild dehydration. 2-hour delta troponin is negative. Chest x-ray with no lobar consolidation or pneumothorax. Most likely etiology of patient's symptoms is chest pain and a not low risk by heart score patient. The results of ED evaluation were discussed with the patient including possible disposition options. I discussed risk stratification by heart score and estimated risk of major adverse cardiac events. The patient wishes to proceed with outpatient management. I discussed prescriptions and/or symptomatic cares (if applicable) including appropriate and responsible use, followup plan, and return precautions. The patient verbalized understanding and felt safe for discharge. Medical Records I reviewed the patient's medical records. Lab Data I reviewed the patient's lab results. 08/02/22 12:14 08/02/22 12:14 Radiology Impressions Chest X-Ray 08/02/22 12:41 IMPRESSION: 1. No acute cardiopulmonary finding. No change. Laboratory Results WBC 9.8 10^3/uL (4.0-10.0) 08/02/22 12:14 RBC 4.82 10^6/uL (4.1-5.3) 08/02/22 12:14 Hgb 13.5 g/dL (11.5-15.3) 08/02/22 12:14 Hct 42.6 % (37.0-47.0) 08/02/22 12:14 MCV 88.4 fl (81-99) 08/02/22 12:14 MCH 28.0 pg (28.0-34.0) 08/02/22 12:14 MCHC 31.7 g/dL (30.0-36.0) 08/02/22 12:14 RDW 14.2 % (12.1-15.1) 08/02/22 12:14 Plt Count 270 10^3/cmm (130-400) 08/02/22 12:14 MPV 9.6 fL (7.4-10.4) 08/02/22 12:14 Neut % (Auto) 73.8 % 08/02/22 12:14 Lymph % (Auto) 18.8 % 08/02/22 12:14 [place] % (Auto) 5.7 % 08/02/22 12:14 Eos % (Auto) 1.0 % 08/02/22 12:14 Baso % (Auto) 0.3 % 08/02/22 12:14 Neut # (Auto) 7.22 10^3/uL (1.8-7.7) 08/02/22 12:14 Lymph # (Auto) 1.8 10^3/uL (0.8-4.8) 08/02/22 12:14 [place] # (Auto) 0.6 10^3/uL (0.2-0.9) 08/02/22 12:14 Eos # (Auto) 0.1 10^3/uL (0.0-0.8) 08/02/22 12:14 Baso # (Auto) 0.0 10^3/uL (0.0-0.1) 08/02/22 12:14 Nucleated RBC % (auto) 0 % 08/02/22 12:14 Nucleated RBCs # 0.0 /100WBC 08/02/22 12:14 Sodium 133 mmol/L (136-145) L 08/02/22 12:14 Potassium 4.2 mmol/L (3.5-5.1) 08/02/22 12:14 Chloride 91 mmol/L (98-107) L 08/02/22 12:14 Carbon Dioxide 30 mmol/L (22-29) H 08/02/22 12:14 Anion Gap 16.2 (5-19) 08/02/22 12:14 BUN 6 mg/dL (8-23) L 08/02/22 12:14 Creatinine 0.6 mg/dL (0.5-0.9) 08/02/22 12:14 GFR Calculation Not Reportable 08/02/22 12:14 Glucose 92 mg/dL (65-115) 08/02/22 12:14 Calculated Osmolality 273 mOsm/kg (285-295) L 08/02/22 12:14 Calcium 9.1 mg/dL (8.5-10.5) 08/02/22 12:14 Total Bilirubin 0.3 mg/dL (0.15-1.2) 08/02/22 12:14 AST 19 U/L (0-32) 08/02/22 12:14 ALT 16 U/L (0-33) 08/02/22 12:14 Alkaline Phosphatase 150 U/L (35-105) H 08/02/22 12:14 Troponin T Baseline 13 ng/L (0-10) H 08/02/22 12:14 Troponin T 120 Minute 10.94 ng/L (0-10) H 08/02/22 14:22 Delta Troponin T -2.06 ABS# (0-10) L 08/02/22 14:22 Troponin T Hi Sens 6Hr 9.18 ng/L (0-10) 08/02/22 18:18 Troponin T Hi Sens 6Hr Delta -3.82 ng/L (0-12) L 08/02/22 18:18 NT-Pro-B Natriuret Pep 121 pg/mL (0-450) 08/02/22 12:14 Total Protein 6.5 g/dL (6.6-8.7) L 08/02/22 12:14 Albumin 3.9 g/dL (3.5-5.2) 08/02/22 12:14 Globulin 2.6 g/dL (1.3-4.6) 08/02/22 12:14 Lipase 10 U/L (13-60) L 08/02/22 12:14 Discharge Plan Discharge Patient Disposition: Home Clinical Impression: Chest pain, Acute exacerbation of chronic obstructive pulmonary disease (COPD) Condition: Stable Prescriptions: No Action tramadol 50 mg tablet 50 - 100 mg PO Q6H PRN (Reason: Pain) senna 8.6 mg capsule 8.6 mg PO BID@08,20 pantoprazole 40 mg tablet,delayed release (DR/EC) 40 mg PO DAILY@0700 bisacodyl 10 mg suppository 10 mg NE DAILY PRN (Reason: Constipation) magnesium hydroxide [Aguilar Milk of Magnesia] 400 mg/5 mL suspension 30 ml PO DAILY PRN (Reason: Constipation) aspirin [Adult Low Dose Aspirin] 81 mg tablet,delayed release (DR/EC) 81 mg PO DAILY@0800 benztropine 0.5 mg tablet 0.5 mg PO BID@08,20 donepezil 10 mg tablet 10 mg PO BEDTIME@20 loratadine [Allergy Relief (loratadine)] 10 mg tablet 10 mg PO DAILY@0800 montelukast 10 mg tablet 10 mg PO DAILY@0800 multivitamin Tablet 1 tab PO DAILY@0800 sucralfate 1 gram tablet 1 gm PO BID@0800,1999 acetaminophen [Tylenol] 325 mg capsule 650 mg PO TID@08,, gabapentin 300 mg capsule 300 mg PO BID@08,20 spironolactone 25 mg tablet 25 mg PO BID@08,20 aripiprazole [Abilify] 10 mg tablet 10 mg PO DAILY@0800 albuterol sulfate 2.5 mg /3 mL (0.083 %) solution for nebulization 2.5 mg inhalation DAILY PRN (Reason: shortness of breath or wheezing) potassium chloride 20 mEq tablet extended release 20 meq PO DAILY@0800 buspirone 7.5 mg tablet 7.5 mg PO BID@08,20 ondansetron HCl 4 mg tablet 4 mg PO Q4H PRN (Reason: Nausea And Vomiting) clonazepam 0.25 mg Tablet,Disintegrating 0.25 mg PO DAILY@07 Daliresp 500 mcg Tablet 500 mcg PO DAILY@08 Throat [place] 1.4 % Aerosol,[place] See Rx Instructions .ROUTE .COMPLEX Rx Instructions: use as directed as needed albuterol sulfate [ProAir HFA] 90 mcg/actuation Hfa Aerosol Inhaler 2 puff INHALATION Q4H PRN (Reason: Wheezing) budesonide [Pulmicort] 0.5 mg/2 mL suspension for nebulization 0.5 mg inhalation BID@08,20 furosemide 40 mg tablet 40 mg PO DAILY@07 tolterodine 4 mg capsule,extended release 24hr 4 mg PO DAILY@08 prazosin 1 mg capsule 1 mg PO BEDTIME@20 senna 8.6 mg Tablet 8.6 mg PO TID PRN (Reason: Constipation) Tussin 100 mg/5 mL Liquid 200 mg PO Q4H PRN (Reason: Cough) Enema Disposable 19-7 gram/118 mL Enema 118 ml NE DAILY PRN (Reason: Constipation) lactulose 10 gram/15 mL solution 60 ml PO BID PRN (Reason: Constipation) ipratropium-albuterol 0.5 mg-3 mg(2.5 mg base)/3 mL solution for nebulization 3 ml inhalation QID Rx Instructions: USE AT 08,12,16,20 Discharge Orders: Discharge ED (Routine); Ordered 08/02/22 Ordered By: Jake Dhillon Referrals: Randall Solitario MD [Primary Care Provider] - Discharge Diet: Usual diet Discharge Activity: Increase activity as tolerated Patient Instructions: Chest Pain (ED), COPD (Chronic Obstructive Pulmonary Disease) (ED) Activity Restrictions/Additional Instructions: Thank you for visiting the emergency department. You were seen and evaluated for chest pain. The exact cause of your symptoms is unclear though as discussed I do believe needs further evaluation which you are choosing to have the outpatient setting. I will message case management for further cardiac testing and you should be contacted for scheduling. Additionally you likely have a component of exacerbation of underlying lung disease. I will prescribe steroids and antibiotics. Please also use your albuterol metered-dose inhaler 2 puffs every 4 hours for 24 hours followed by 2 puffs every 6 hours for 24 hours followed by 2 puffs every 8 hours for 24 hours and then return to the normal schedule. Please follow-up with your primary care provider. Return to the emergency department for worsening symptoms or anything else that you are concerned about a feel needs emergency department evaluation. Coding Level of Care Code ED Packing And Wrapping Supervisor for Tita Fwd Exam Comprehensive
--- NOTE | 2022-08-02 12:41 | XR_ITS ---
WS: [id number] Exam: XR chest 1V portable [id number] Date/Time of Exam: 08/02/2022 12:45 PM Reason For Exam: cp Comparison 11/16/2021. The lungs are fully expanded and clear. Normal cardiomediastinal silhouette. No pleural effusions. Cesario ny elements are intact. Monitoring leads superimpose the chest. Fusion hardware partially visualized in the lower C-spine. XR/XR chest 1V portable [id number] IMPRESSION: 1. No acute cardiopulmonary finding. No change.
[2022-08-02 12:55] LABS: Basophils % 0.3 %; Eosinophils # 0.1 10^3/uL (0.0-0.8); Hematocrit 42.6 % (37.0-47.0); Hemoglobin 13.5 g/dL (11.5-15.3); Lymphocytes # 1.8 10^3/uL (0.8-4.8); Lymphocytes % 18.8 %; Mean Corpuscular HGB Conc 31.7 g/dL (30.0-36.0); Mean Corpuscular Volume 88.4 fl (81-99); Mean Platelet Volume 9.6 fL (7.4-10.4); Monocytes # 0.6 10^3/uL (0.2-0.9); Monocytes % 5.7 %; Neutrophils # 7.22 10^3/uL (1.8-7.7); Neutrophils % 73.8 %; Nucleated Red Blood Cells % 0 %; Platelet Count 270 10^3/cmm (130-400); Red Blood Count 4.82 10^6/uL (4.1-5.3); Red Cell Distribution Width 14.2 % (12.1-15.1); White Blood Count 9.8 10^3/uL (4.0-10.0)
--- NOTE | 2022-08-02 12:57 | ECG_ITS ---
[facility] Test Date: 2022-08-02 Pat Name: Muriel Agarwal Department: Room: Gender: Female [employer] Report Developer: : 1945 Requested By: Jake Dhillon Order Number: [id number] Minoo MD: Frandy Piper M.D. Measurements Intervals [place] Rate: 87 P: -33 NV: 119 QRS: 15 QRSD: 68 T: 33 QT: 324 QTc: 391 Interpretive Statements SINUS RHYTHM WITH SHORT NV INTERVAL LOW QRS VOLTAGE IN PRECORDIAL LEADS [QRS DEFLECTION < 1.0 mV IN CHEST LEADS] Compared to ECG 01/28/2021 03:27:34 Short NV interval now present Low QRS voltage now present First degree AV block no longer present Electronically Signed On 08-04-2022 6:28:06 RIBBING MACHINE OPERATOR by Frandy Piper M.D. https://[employer]Act[employer] Pharmaceuticalsparkwood behavioral health systemGreenleaf Book Groupriverside methodist hospital.[employer]/store/OM/[id number]
--- NOTE | 2022-08-02 13:01 | PC.PHAR ---
pt is from [facility] [phone] Nayak from [facility] states the pt had her medications today
[2022-08-02 13:06] LABS: Alanine Aminotransferase 16 U/L (0-33); Albumin Level 3.9 g/dL (3.5-5.2); Alkaline Phosphatase 150 U/L (35-105); Anion Gap 16.2 (5-19); Aspartate Amino Transferase 19 U/L (0-32); Blood Urea Nitrogen 6 mg/dL (8-23); Calcium 9.1 mg/dL (8.5-10.5); Carbon Dioxide 30 mmol/L (22-29); Chloride 91 mmol/L (98-107); Globulin 2.6 g/dL (1.3-4.6); Glucose 92 mg/dL (65-115); Lipase 10 U/L (13-60); Osmolality Calculated 273 mOsm/kg (285-295); Potassium 4.2 mmol/L (3.5-5.1); Sodium 133 mmol/L (136-145); Total Bilirubin 0.3 mg/dL (0.15-1.2); Total Protein 6.5 g/dL (6.6-8.7)
[2022-08-02 13:13] LABS: NT Pro B Type Natriuretic Pept 121 pg/mL (0-450)
[2022-08-02] MEDS: ipratropium-albuterol 3 mL Neb INHALATION (13:20)
[2022-08-02 13:27] LABS: Troponin(5th) Baseline 13 ng/L (0-10)
--- NOTE | 2022-08-02 14:41 | ECG_ITS ---
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 Measurements Intervals [place] Rate: 86 P: 0 GA: 0 QRS: 53 QRSD: 87 T: 60 QT: 351 QTc: 421 Interpretive Statements SINUS RHYTHM Compared to ECG 08/02/2022 12:57:31 Short GA interval no longer present Electronically Signed On 08-04-2022 6:35:31 SECURITY ESCORT by Frandy Piper M.D. [email or web address].Calabriolackey memorial hospitalGeroncleveland clinic union hospitalMas Con [employer]/store/OM/[id number]
[2022-08-02 14:46] LABS: Troponin 5 2HR 10.94 ng/L (0-10)
[2022-08-02 14:50] LABS: Troponin 5 2HR Delta -2.06 ABS# (0-10)
[2022-08-02] MEDS: dilTIAZem 30 mg Tablet PO (17:21)
[2022-08-02 18:47] LABS: Troponin 5 6HR 9.18 ng/L (0-10)
[2022-08-02 19:31] LABS: Troponin 5 6HR Delta -3.82 ng/L (0-12)
--- NOTE | 2022-08-03 10:02 | PC.SOCIAL ---
Lexiscan/Echo Orders sent to centralized scheduling for outpatient echocardiogram and lexiscan sestamibi.
--- NOTE | 2022-08-07 15:00 | DCPLANNER ---
Addendum entered by Rolanda Moore 12/04/22 08:17: Patient had an outpatient stress test scheduled - patient did not attend appointment Patient had an echo ordered - this test was cancelled Addendum entered by Rolanda Moore 08/07/22 15:02: This test was already faxed to centralized scheduling. Original Note: linen manager had message to schedule an outpatient stress test and echo cardiogram for patent. linen manager faxed signed order to centralized scheduling, who will call patient with appointment information. linen manager also faxed patients primary care physician, Dr. Solitario, notification that this test was ordered from the ER physician.
== END 2022-08-02 18:50 | disposition home or self-care (01) ==
PROVIDERS: Emergency Provider Emergency Medicine; PCP Family Medicine
DX: J44.1 Chronic obstructive pulmonary disease with (acute) exacerbation (principal); R07.9 Chest pain, unspecified; Z79.82 Long term (current) use of aspirin
CPT/HCPCS: 36415; 71045; 80053; 83690; 83880; 84484; 85025; 93005; 94640; 96374; 99285; J2930

== ENCOUNTER → 2022-09-28 09:50 | Outpatient (BNVA) | payer MEDICARE, MEDICAID, SELFPAY | PROVIDERS: PCP Family Medicine; Visit Provider Specialist | DX: M17.12 Unilateral primary osteoarthritis, left knee (principal); Z71.89 Other specified counseling | CPT/HCPCS: 20610; J1100; J2795; J3301 ==

== ENCOUNTER 2022-10-30 12:09 | Outpatient (CLI) | payer MEDICARE, MEDICAID, SELFPAY ==
[2022-10-30 13:33] LABS: Basophils % 0.4 %; Eosinophils # 0.1 10^3/uL (0.0-0.8); Eosinophils % 0.6 %; Hematocrit 42.2 % (37.0-47.0); Hemoglobin 13.5 g/dL (11.5-15.3); Lymphocytes % 10.2 %; Mean Corpuscular Hemoglobin 27.9 pg (28.0-34.0); Mean Corpuscular Volume 87.2 fl (81-99); Monocytes # 0.6 10^3/uL (0.2-0.9); Monocytes % 5.9 %; Neutrophils # 7.68 10^3/uL (1.8-7.7); Neutrophils % 82.5 %; Nucleated Red Blood Cells % 0 %; Platelet Count 255 10^3/cmm (130-400); Red Blood Count 4.84 10^6/uL (4.1-5.3); Red Cell Distribution Width 14.6 % (12.1-15.1); White Blood Count 9.3 10^3/uL (4.0-10.0)
[2022-10-30 14:01] LABS: Alanine Aminotransferase 25 U/L (0-33); Albumin Level 4.1 g/dL (3.5-5.2); Alkaline Phosphatase 179 U/L (35-105); Anion Gap 16.3 (5-19); Aspartate Amino Transferase 24 U/L (0-32); Blood Urea Nitrogen 8 mg/dL (8-23); Carbon Dioxide 28 mmol/L (22-29); Chloride 92 mmol/L (98-107); Globulin 2.3 g/dL (1.3-4.6); Glucose 99 mg/dL (65-115); Osmolality Calculated 272 mOsm/kg (285-295); Potassium 4.3 mmol/L (3.5-5.1); Sodium 132 mmol/L (136-145); Total Bilirubin 0.4 mg/dL (0.15-1.2); Total Protein 6.4 g/dL (6.6-8.7)
[2022-10-30 14:48] LABS: NT Pro B Type Natriuretic Pept 125 pg/mL (0-450)
== END 2022-10-30 12:10 | disposition home or self-care (01) ==
LOC: LAB 12:11
PROVIDERS: PCP Family Medicine; Visit Provider Physician Assistant
DX: J44.9 Chronic obstructive pulmonary disease, unspecified (principal)
CPT/HCPCS: 80053; 83880; 85025

== ENCOUNTER 2022-11-06 10:52 | Inpatient (IN) | payer MEDICARE, MEDICAID, SELFPAY ==
[2022-11-06] VITALS (18 sets, daily range): BP systolic 146–171; BP diastolic 65–106; PULSE 100–159; RESP 16–26; TEMP 36.6–37; O2SAT 85–94; BMI 42.0
--- NOTE | 2022-11-06 11:24 | ECG_ITS ---
[facility] Test Date: 2022-11-06 Pat Name: Muriel Agarwal Department: Room: Gender: Female Military Analyst: : 1945 Requested By: Alfredo Agarwal Order Number: [id number] Mnioo MD: Elton Alves M.D. Measurements Intervals [place] Rate: 134 P: 0 TN: 0 QRS: 53 QRSD: 86 T: 3 QT: 272 QTc: 406 Interpretive Statements Atrial fibrillation with rapid ventricular rate MINIMAL ST DEPRESSION [0.025+ mV ST DEPRESSION] ABNORMAL RHYTHM ECG Compared to ECG 08/02/2022 14:53:16 ST (T wave) deviation now present Sinus rhythm no longer present Electronically Signed On 11-06-2022 19:07:52 ESTABLISHMENT GUIDE by Elton Alves M.D. [email or web address].[employer]/store/[id number] [email or web address]
--- NOTE | 2022-11-06 11:24 | XR_ITS ---
WS: [id number] Exam: XR chest 1V portable [id number] Date/Time of Exam: 11/06/2022 11:26 AM Reason For Exam: SOB Comparison 10/04/2017. Chronic right infrahilar changes noted. The lungs are fully expanded. Cardiomediastinal silhouette is unremarkable for portable technique. No pleural effusions. Bony structures are intact. Moderate DJD of the left shoulder. Fusion hardware seen in the cervical spine. XR/XR chest 1V portable [id number] IMPRESSION: 1. Chronic right infrahilar pulmonary changes. No acute process identified.
[2022-11-06 11:34] LABS: Basophils % 0.1 %; Eosinophils # 0.1 10^3/uL (0.0-0.8); Eosinophils % 0.8 %; Hematocrit 41.7 % (37.0-47.0); Hemoglobin 13.1 g/dL (11.5-15.3); Lymphocytes # 1.2 10^3/uL (0.8-4.8); Lymphocytes % 13.1 %; Mean Corpuscular HGB Conc 31.4 g/dL (30.0-36.0); Mean Corpuscular Hemoglobin 27.8 pg (28.0-34.0); Mean Corpuscular Volume 88.3 fl (81-99); Mean Platelet Volume 9.6 fL (7.4-10.4); Monocytes # 0.4 10^3/uL (0.2-0.9); Monocytes % 4.4 %; Neutrophils # 7.27 10^3/uL (1.8-7.7); Neutrophils % 81.4 %; Nucleated Red Blood Cells % 0 %; Platelet Count 235 10^3/cmm (130-400); Red Blood Count 4.72 10^6/uL (4.1-5.3); Red Cell Distribution Width 14.6 % (12.1-15.1); White Blood Count 8.9 10^3/uL (4.0-10.0)
[2022-11-06 11:45] LABS: ABG PCO2 51.3 mmHg (35-45); ABG PH Result 7.43 (7.35-7.45); Arterial Blood Gas Hematocrit 39.3 % (37-47); Base Excess ABG 8.6 mmol/L (-2.0-2.0); Blood Gas Allen Test Pos; Blood Gas Sample Site Radial, right; Blood Gas Sample Type Arterial; HCO3 ABG 34.4 mmol/L (22-26); Oxygen Device NC; PO2 ABG 54.1 mmHg (80.0-100.0)
[2022-11-06 11:53] LABS: Troponin(5th) Baseline 11 ng/L (0-10)
[2022-11-06 11:54] LABS: Alanine Aminotransferase 25 U/L (0-33); Albumin Level 3.9 g/dL (3.5-5.2); Alkaline Phosphatase 166 U/L (35-105); Anion Gap 14.7 (5-19); Aspartate Amino Transferase 32 U/L (0-32); Blood Urea Nitrogen 9 mg/dL (8-23); Calcium 9.2 mg/dL (8.5-10.5); Carbon Dioxide 32 mmol/L (22-29); Chloride 93 mmol/L (98-107); Globulin 2.6 g/dL (1.3-4.6); Glucose 115 mg/dL (65-115); Osmolality Calculated 280 mOsm/kg (285-295); Potassium 4.7 mmol/L (3.5-5.1); Sodium 135 mmol/L (136-145); Total Bilirubin 0.3 mg/dL (0.15-1.2); Total Protein 6.5 g/dL (6.6-8.7)
--- NOTE | 2022-11-06 12:01 | ED_ITS ---
HPI - SOB/Dyspnea General: Chief Complaint: Shortness of Breath/Dyspnea Stated Complaint: SOB/ PRODUCTIVE COUGH Time Seen by Provider: 11/06/22 11:08 History of Present Illness: HPI Narrative: This 77-year-old female with a history of COPD, pneumonia and generalized anxiety disorder presents to the ER with shortness of breath that got worse over the last 4 days. She recalls that she had pneumonia that was recently treated. She has no nausea, vomiting or fever. She notes that she uses 2.5 liters of oxygen via nasal cannula but in recent times, they have had to increase it to 3 L. Patient does not smoke and lives in a assisted where she has been for about 5 years now. This morning, they noticed that her heart rate was fast. Associated symptoms: Reports chest congestion and palpitations; Deny chest pain or lightheadedness Review of Systems Const: Denies: chills, body aches or change in appetite Eyes: Denies: change in vision or eye discharge ENMT: Denies: throat pain, dental pain or nasal discharge Card: Reports: palpitations and dyspnea on exertion; Denies: chest pain or lightheadedness Resp: Reports: dyspnea, productive cough, wheezing and chest congestion : Denies: dysuria Musc: Denies: neck pain or back pain Neuro: Denies: headache(s) or weakness in extremities Psych: Denies: depression Jonathan/Lymph: Denies: easy bruising All/Imm: Denies: urticaria, tongue swelling or facial swelling PFSH ED PFSH: Medical History (Updated 11/06/22 @ 19:00 by Winnie Katz MD) Age related osteoporosis Bipolar 1 disorder Chronic hyponatremia Chronic respiratory failure COPD (chronic obstructive pulmonary disease) Degenerative arthritis of knee Dementia Diastolic CHF Dysphagia Dysthymic disorder Former smoker Generalized anxiety disorder History of GI bleed Hypertension Incontinence Neuritis Nightmare disorder Obesity Osteoarthritis Overactive bladder Psychiatric care PTSD (post-traumatic stress disorder) Schizophrenia Tremor Vitamin D deficiency Surgical History History of cervical spinal surgery Social History Smoking and tobacco status: former smoker Quit status (tobacco): has quit using tobacco Year quit tobacco: 2004 Former quit date comment: 0.5 ppd x 45 Years Second hand smoke exposure: Yes Alcohol intake: never Substance/Drug Use: never Caregiver/support person: Yes Lives independently: No Housing: Longterm Current occupational status: retired Current gender identity: Female Physical Exam Const: COMMON NORMALS: patient oriented x3, no limitations and alert OTHER: Acute distress due to shortness of breath HENMT: COMMON NORMALS: normocephalic HEAD & SCALP: normocephalic Eye: COMMON NORMALS: EOMs intact bilaterally Neck/C-Spine: COMMON NORMALS: full ROM and supple Chest: COMMONS NORMALS: normal inspection of the chest Resp: OTHER: Increased respiratory effort, use of accessory muscles, tachypnea, inspiratory and expiratory wheeze, prolonged expiratory phase, bibasilar crackles. Cardio: COMMON NORMALS: No murmurs present (Cardio) and No rub (Cardio) OTHER: Tachycardia, regular rhythm, no murmur. GI: COMMON NORMALS: Normal to inspection, nondistended, normoactive bowel sounds present and non-tender : COMMON NORMALS: Yes no CVA tenderness BLADDER/KIDNEY EXAM: Yes no CVA tenderness Back/Pelvis: COMMON NORMALS: no CVA tenderness and no thoracic nor lumbar tenderness Extremity: GENERAL: Yes normal exam except as noted Neuro: COMMON NORMALS: patient oriented x3 and no focal motor deficits SENSORIUM/ORIENTATION: Yes alert Psych: COMMON NORMALS: mental status grossly normal and cooperative Course Consultations: Consultation #1: Discussed with Dr. Katz. She will get back to me soon. Time: 13:14 Consultation #2: Case discussed with Dr. Katz who accepted patient for observation placement. Vital Signs: Vital signs: Vital Signs Temperature 97.8 F 11/06/22 20:00 Pulse Rate 132 H 11/06/22 20:49 Respiratory Rate 22 H 11/06/22 20:49 Blood Pressure 146/65 11/06/22 20:00 Pulse Oximetry 94 11/06/22 20:49 Oxygen Delivery Me thod 11/06/22 20:49 Oxygen Flow Rate 3 11/06/22 20:49 MDM - SOB/Dyspnea Medical Decision Making Medical decision making: History as above. Patient has an acute exacerbation of COPD. She will be admitted for further management. Case discussed with hospitalist who accepted patient for admission. Lab Data 11/06/22 10:45 11/06/22 10:45 Labs/Radiology: Radiology Impressions Chest X-Ray 11/06/22 11:24 IMPRESSION: 1. Chronic right infrahilar pulmonary changes. No acute process identified. Laboratory Results WBC 8.9 10^3/uL (4.0-10.0) 11/06/22 10:45 RBC 4.72 10^6/uL (4.1-5.3) 11/06/22 10:45 Hgb 13.1 g/dL (11.5-15.3) 11/06/22 10:45 Hct 41.7 % (37.0-47.0) 11/06/22 10:45 MCV 88.3 fl (81-99) 11/06/22 10:45 MCH 27.8 pg (28.0-34.0) L 11/06/22 10:45 MCHC 31.4 g/dL (30.0-36.0) 11/06/22 10:45 RDW 14.6 % (12.1-15.1) 11/06/22 10:45 Plt Count 235 10^3/cmm (130-400) 11/06/22 10:45 MPV 9.6 fL (7.4-10.4) 11/06/22 10:45 Neut % (Auto) 81.4 % 11/06/22 10:45 Lymph % (Auto) 13.1 % 11/06/22 10:45 [place] % (Auto) 4.4 % 11/06/22 10:45 Eos % (Auto) 0.8 % 11/06/22 10:45 Baso % (Auto) 0.1 % 11/06/22 10:45 Neut # (Auto) 7.27 10^3/uL (1.8-7.7) 11/06/22 10:45 Lymph # (Auto) 1.2 10^3/uL (0.8-4.8) 11/06/22 10:45 [place] # (Auto) 0.4 10^3/uL (0.2-0.9) 11/06/22 10:45 Eos # (Auto) 0.1 10^3/uL (0.0-0.8) 11/06/22 10:45 Baso # (Auto) 0.0 10^3/uL (0.0-0.1) 11/06/22 10:45 Nucleated RBC % (auto) 0 % 11/06/22 10:45 Nucleated RBCs # 0.0 /100WBC 11/06/22 10:45 Specimen Type Arterial 11/06/22 11:34 Sample Site Radial, right 11/06/22 11:34 ABG pH 7.43 (7.35-7.45) 11/06/22 11:34 ABG pCO2 51.3 mmHg (35-45) H 11/06/22 11:34 ABG pO2 54.1 mmHg (80.0-100.0) L 11/06/22 11:34 ABG HCO3 34.4 mmol/L (22-26) H 11/06/22 11:34 ABG Base Excess 8.6 mmol/L (-2.0-2.0) H 11/06/22 11:34 Wu Test Pos 11/06/22 11:34 Hematocrit 39.3 % (37-47) 11/06/22 11:34 O2 Delivery Device Nc 11/06/22 11:34 O2 Liters/Min 4.0 % 11/06/22 11:34 Cat And Dog Bather ID [email or web address] 11/06/22 11:34 Sodium 135 mmol/L (136-145) L 11/06/22 10:45 Potassium 4.7 mmol/L (3.5-5.1) 11/06/22 10:45 Chloride 93 mmol/L (98-107) L 11/06/22 10:45 Carbon Dioxide 32 mmol/L (22-29) H 11/06/22 10:45 Anion Gap 14.7 (5-19) 11/06/22 10:45 BUN 9 mg/dL (8-23) 11/06/22 10:45 Creatinine 0.6 mg/dL (0.5-0.9) 11/06/22 10:45 GFR Calculation Not Reportable 11/06/22 10:45 Glucose 115 mg/dL (65-115) 11/06/22 10:45 Calculated Osmolality 280 mOsm/kg (285-295) L 11/06/22 10:45 Lactic Acid 1.2 mmol/L (0.5-2.2) 11/06/22 11:45 Calcium 9.2 mg/dL (8.5-10.5) 11/06/22 10:45 Total Bilirubin 0.3 mg/dL (0.15-1.2) 11/06/22 10:45 AST 32 U/L (0-32) 11/06/22 10:45 ALT 25 U/L (0-33) 11/06/22 10:45 Alkaline Phosphatase 166 U/L (35-105) H 11/06/22 10:45 Troponin T Baseline 11 ng/L (0-10) H 11/06/22 10:45 Troponin T 120 Minute 9.48 ng/L (0-10) 11/06/22 12:45 Delta Troponin T -1.52 ABS# (0-10) L 11/06/22 12:45 NT-Pro-B Natriuret Pep 321 pg/mL (0-450) 11/06/22 10:45 Total Protein 6.5 g/dL (6.6-8.7) L 11/06/22 10:45 Albumin 3.9 g/dL (3.5-5.2) 11/06/22 10:45 Globulin 2.6 g/dL (1.3-4.6) 11/06/22 10:45 Influenza Type A Ag negative (Negative) 11/06/22 11:39 Influenza Type B Ag negative (Negative) 11/06/22 11:39 Discharge Plan Discharge Patient Disposition: Placed in Observation Admit Provider: Winnie Katz Clinical Impression: Acute exacerbation of chronic obstructive pulmonary disease Coding Level of Care Code ED Supervisor [employer] for Tita Lanier
[2022-11-06 12:02] LABS: Influenza A by IFA negative (Negative); Influenza B by IFA negative (Negative)
[2022-11-06] MEDS: ipratropium-albuterol 3 mL Neb INHALATION (12:24)
[2022-11-06 12:26] LABS: Lactic Sepsis W/Reflex 1.2 mmol/L (0.5-2.2)
--- NOTE | 2022-11-06 13:04 | PC.PHAR ---
Addendum entered by Carmel Rey 11/06/22 13:06: pt finished levaquin 750mg daily on11/04/22 Original Note: pt is from [facility] [phone] [employer] states the pt had all am meds
--- NOTE | 2022-11-06 13:27 | ECG_ITS ---
[facility] Test Date: 2022-11-06 Pat Name: Muriel Agarwal Department: Room: Gender: Female Home Coordinator: : 1945 Requested By: Alfredo Agarwal Order Number: [id number] Minoo MD: Elton Alves M.D. Measurements Intervals [place] Rate: 133 P: 8 MA: 130 QRS: 23 QRSD: 86 T: 6 QT: 277 QTc: 412 Interpretive Statements SINUS TACHYCARDIA POSSIBLE INFERIOR MYOCARDIAL INFARCTION , PROBABLY OLD [30 ms Q WAVE IN II/aVF] ABNORMAL RHYTHM ECG Compared to ECG 08/02/2022 14:53:16 Myocardial infarct finding now present Sinus rhythm no longer present Electronically Signed On 11-06-2022 19:17:09 PRICING DIRECTOR by Elton Alves M.D. [id number]
[2022-11-06 13:37] LABS: Troponin 5 2HR 9.48 ng/L (0-10)
[2022-11-06 13:53] LABS: Troponin 5 2HR Delta -1.52 ABS# (0-10)
--- NOTE | 2022-11-06 14:52 | PM.HP ---
Providers/Chief Complaint Admitting Physician: Winnie Katz MD Primary Care Provider: Randall Solitario MD Chief Complaint: SOB/ PRODUCTIVE COUGH History of Present Illness Muriel Agarwal is a 77 year old female resident at [facility] who was sent to the emergency room with chief complaint of increased difficulty breathing, lower oxygen levels and some chest discomfort. She herself denies the chest discomfort beyond that which she has with increased cough. She reports increased difficulty breathing for the last several days. She had increased cough productive of increased amounts of sputum. She has oxygen that she does not wear all the time. She was initially on 3 L by nasal cannula. Upon arrival here she was requiring 4 L by nasal cannula to maintain saturations in the low 90s. She does have chronic hypoxemia/respiratory failure secondary to COPD. Records indicate chronic diastolic CHF that was at grade 1 on last echocardiogram back in 2020. She is chronically on pulmonary toilet and diuresis. No recent medication changes. She has had a little bit of swelling in her lower extremities. No recent fevers. No nausea or vomiting. No change in bowel or bladder function. In the emergency room she was noted to be tachycardic in addition to hypoxic. She received several breathing treatments and was given some IV steroids. She is improved from presentation but continues to require above usual oxygen therapy and has significant wheezing. Request was made for admission. Chest x-ray shows chronic right infrahilar pulmonary changes with no acute process identified. Review of Systems General: Reports: Other (ROS as per HPI or as otherwise noted here) Card: Denies: chest pain or edema Resp: Denies: pain on inspiration or hemoptysis Musc: Reports: other (No calf tenderness) Medications/Allergies Home Medications Medication Instructions Recorded Confirmed Last Taken Type acetaminophen 325 mg capsule 650 mg PO TID@,, pain 11/03/19 11/06/22 11/06/22 History (Tylenol) aspirin 81 mg tablet,delayed 81 mg PO DAILY@11/03/19 11/06/22 11/06/22 History release (Adult Low Dose Aspirin) benztropine 0.5 mg tablet 0.5 mg PO BID@11/03/19 11/06/22 11/06/22 History bisacodyl 10 mg rectal suppository 10 mg [place] DAILY PRN Constipation 11/03/19 11/06/22 Unknown History gabapentin 300 mg capsule 300 mg PO BID@11/03/19 11/06/22 11/06/22 History loratadine 10 mg tablet (Allergy 10 mg PO DAILY@11/03/19 11/06/22 11/06/22 History Relief (loratadine)) magnesium hydroxide 400 mg/5 mL 30 ml PO DAILY PRN Constipation 11/03/19 11/06/22 Unknown History oral suspension (Aguilar Milk of Magnesia) montelukast 10 mg tablet 10 mg PO DAILY@11/03/19 11/06/22 11/06/22 History multivitamin 1 tab PO DAILY@11/03/19 11/06/22 11/06/22 History pantoprazole 40 mg tablet,delayed 40 mg PO DAILY@69911/03/19 11/06/22 11/06/22 History release sennosides 8.6 mg capsule (senna) 8.6 mg PO TID PRN Constipation 11/03/19 11/06/22 08/02/22 History sucralfate 1 gram tablet 1 gm PO BID@11/03/19 11/06/22 11/06/22 History tramadol 50 mg tablet 100 mg PO Q6H PRN Pain 11/03/19 11/06/22 11/06/22 History potassium chloride 20 mEq 20 meq PO DAILY@09/28/20 11/06/22 11/06/22 History tablet,extended release buspirone 7.5 mg tablet 7.5 mg PO BID@11/10/20 11/06/22 11/06/22 History aripiprazole 10 mg tablet (Abilify) 10 mg PO DAILY@12/07/20 11/06/22 11/06/22 History spironolactone 25 mg tablet 25 mg PO BID@12/07/20 11/06/22 11/06/22 History albuterol sulfate 90 mcg/actuation 2 puff inhalation Q4H PRN Wheezing 01/27/21 11/06/22 Unknown History aerosol inhaler (ProAir HFA) budesonide 0.5 mg/2 mL suspension 0.5 mg inhalation BID@01/27/21 11/06/22 11/06/22 History for nebulization (Pulmicort) phenol 1.4 % mucosal aerosol spray See Rx Instructions .Route .COMPLEX 01/27/21 11/06/22 Unknown History (Throat [place]) albuterol sulfate 2.5 mg/3 mL 2.5 mg inhalation Q4H 07/18/21 11/06/22 11/06/22 History (0.083 %) solution for nebulization clonazepam 0.25 mg disintegrating 0.25 mg PO DAILY@11/17/21 11/06/22 11/06/22 History tablet roflumilast 500 mcg tablet 500 mcg PO DAILY@11/17/21 11/06/22 11/06/22 History (Daliresp) ondansetron HCl 4 mg tablet 4 mg PO Q4H PRN Nausea And Vomiting 12/14/21 11/06/22 Unknown History furosemide 40 mg tablet 40 mg PO DAILY@08/02/22 11/06/22 11/06/22 History guaifenesin 100 mg/5 mL oral 200 mg PO Q4H PRN Cough 08/02/22 11/06/22 Unknown History liquid (Tussin) ipratropium 0.5 mg-albuterol 3 mg 3 ml inhalation QID 08/02/22 11/06/22 11/06/22 History (2.5 mg base)/3 mL nebulization soln lactulose 10 gram/15 mL oral 60 ml PO BID PRN Constipation 08/02/22 11/06/22 Unknown History solution prazosin 1 mg capsule 1 mg PO BEDTIME@08/02/22 11/06/22 11/05/22 History sennosides 8.6 mg tablet (senna) 8.6 mg PO BID@08/02/22 11/06/22 11/06/22 History sodium phosphates 19 gram-7 118 ml [place] DAILY PRN Constipation 08/02/22 11/06/22 Unknown History gram/118 mL enema (Enema Disposable) tolterodine 4 mg capsule,extended 4 mg PO DAILY@08/02/22 11/06/22 11/06/22 History release 24 hr albuterol sulfate 2.5 mg/3 mL 2.5 mg inhalation DAILY PRN 11/06/22 11/06/22 Unknown History (0.083 %) solution for nebulization Shortness Of Breath diclofenac sodium 1 % topical gel See Rx Instructions .Route .COMPLEX 11/06/22 11/06/22 Unknown History nystatin 100,000 unit/gram topical See Rx Instructions .Route .COMPLEX 11/06/22 11/06/22 Unknown History cream nystatin 100,000 unit/gram topical See Rx Instructions .Route .COMPLEX 11/06/22 11/06/22 Unknown History ointment tramadol 50 mg tablet 50 mg PO Q6H PRN Pain 11/06/22 11/06/22 Unknown History Allergies Allergy/AdvReac Type Severity Reaction Status Date / Time doxycycline Allergy Unknown Verified 11/06/22 13:02 PFSH Acute PFSH: Medical History (Updated 11/06/22 @ 19:00 by Winnie Katz MD) Age related osteoporosis Bipolar 1 disorder Chronic hyponatremia Chronic respiratory failure COPD (chronic obstructive pulmonary disease) Degenerative arthritis of knee Dementia Diastolic CHF Dysphagia Dysthymic disorder Former smoker Generalized anxiety disorder History of GI bleed Hypertension Incontinence Neuritis Nightmare disorder Obesity Osteoarthritis Overactive bladder Psychiatric care PTSD (post-traumatic stress disorder) Schizophrenia Tremor Vitamin D deficiency Surgical History (Updated 11/06/22 @ 15:09 by Winnie Katz MD) History of cervical spinal surgery Social History (Updated 11/06/22 @ 15:10 by Winnie Katz MD) Smoking and tobacco status: former smoker Quit status (tobacco): has quit using tobacco Year quit tobacco: 2004 Former quit date comment: 0.5 ppd x 45 Years Second hand smoke exposure: Yes Alcohol intake: never Substance/Drug Use: never Caregiver/support person: Yes Lives independently: No Housing: [facility] Current occupational status: retired Current gender identity: Female Vitals/I&O/Wt Last Vital Signs Temp 98.6 F 11/06/22 10:56 Pulse 137 H 11/06/22 14:30 Resp 17 11/06/22 14:30 BP 146/87 11/06/22 14:30 Pulse Ox 90 11/06/22 14:30 O2 Del Method 11/06/22 12:24 O2 Flow Rate 4 11/06/22 12:24 Weight last 48 hrs Weight 111.13 kg Physical Exam Narrative: Patient is awake and alert. Able to provide majority of history. Normocephalic, extraocular movements are intact, nasopharynx with some clear rhinorrhea, oropharynx with moist mucous membranes. Neck is large but supple. Diffuse wheezes noted bilaterally. Tachypneic. No accessory muscle use presently but some intermittent pursed lip breathing. Talking in approximately 5 word sentences. Abdomen is soft, nontender with positive bowel sounds. Trace edema pretibial. Resting tremor noted to both hands that worsens with intention. Speech clear. Moves all extremities. Anxious but cooperative. Data 11/06/22 10:45 11/06/22 10:45 Other Labs: Radiology Impressions Chest X-Ray 11/06/22 11:24 IMPRESSION: 1. Chronic right infrahilar pulmonary changes. No acute process identified. Laboratory Results WBC 8.9 10^3/uL (4.0-10.0) 11/06/22 10:45 RBC 4.72 10^6/uL (4.1-5.3) 11/06/22 10:45 Hgb 13.1 g/dL (11.5-15.3) 11/06/22 10:45 Hct 41.7 % (37.0-47.0) 11/06/22 10:45 MCV 88.3 fl (81-99) 11/06/22 10:45 MCH 27.8 pg (28.0-34.0) L 11/06/22 10:45 MCHC 31.4 g/dL (30.0-36.0) 11/06/22 10:45 RDW 14.6 % (12.1-15.1) 11/06/22 10:45 Plt Count 235 10^3/cmm (130-400) 11/06/22 10:45 MPV 9.6 fL (7.4-10.4) 11/06/22 10:45 Neut % (Auto) 81.4 % 11/06/22 10:45 Lymph % (Auto) 13.1 % 11/06/22 10:45 [place] % (Auto) 4.4 % 11/06/22 10:45 Eos % (Auto) 0.8 % 11/06/22 10:45 Baso % (Auto) 0.1 % 11/06/22 10:45 Neut # (Auto) 7.27 10^3/uL (1.8-7.7) 11/06/22 10:45 Lymph # (Auto) 1.2 10^3/uL (0.8-4.8) 11/06/22 10:45 [place] # (Auto) 0.4 10^3/uL (0.2-0.9) 11/06/22 10:45 Eos # (Auto) 0.1 10^3/uL (0.0-0.8) 11/06/22 10:45 Baso # (Auto) 0.0 10^3/uL (0.0-0.1) 11/06/22 10:45 Nucleated RBC % (auto) 0 % 11/06/22 10:45 Nucleated RBCs # 0.0 /100WBC 11/06/22 10:45 Specimen Type Arterial 11/06/22 11:34 Sample Site Radial, right 11/06/22 11:34 ABG pH 7.43 (7.35-7.45) 11/06/22 11:34 ABG pCO2 51.3 mmHg (35-45) H 11/06/22 11:34 ABG pO2 54.1 mmHg (80.0-100.0) L 11/06/22 11:34 ABG HCO3 34.4 mmol/L (22-26) H 11/06/22 11:34 ABG Base Excess 8.6 mmol/L (-2.0-2.0) H 11/06/22 11:34 Wu Test Pos 11/06/22 11:34 Hematocrit 39.3 % (37-47) 11/06/22 11:34 O2 Delivery Device Nc 11/06/22 11:34 O2 Liters/Min 4.0 % 11/06/22 11:34 Metallurgical Engineering Technician ID [email or web address] 11/06/22 11:34 Sodium 135 mmol/L (136-145) L 11/06/22 10:45 Potassium 4.7 mmol/L (3.5-5.1) 11/06/22 10:45 Chloride 93 mmol/L (98-107) L 11/06/22 10:45 Carbon Dioxide 32 mmol/L (22-29) H 11/06/22 10:45 Anion Gap 14.7 (5-19) 11/06/22 10:45 BUN 9 mg/dL (8-23) 11/06/22 10:45 Creatinine 0.6 mg/dL (0.5-0.9) 11/06/22 10:45 GFR Calculation Not Reportable 11/06/22 10:45 Glucose 115 mg/dL (65-115) 11/06/22 10:45 Calculated Osmolality 280 mOsm/kg (285-295) L 11/06/22 10:45 Lactic Acid 1.2 mmol/L (0.5-2.2) 11/06/22 11:45 Calcium 9.2 mg/dL (8.5-10.5) 11/06/22 10:45 Total Bilirubin 0.3 mg/dL (0.15-1.2) 11/06/22 10:45 AST 32 U/L (0-32) 11/06/22 10:45 ALT 25 U/L (0-33) 11/06/22 10:45 Alkaline Phosphatase 166 U/L (35-105) H 11/06/22 10:45 Troponin T Baseline 11 ng/L (0-10) H 11/06/22 10:45 Troponin T 120 Minute 9.48 ng/L (0-10) 11/06/22 12:45 Delta Troponin T -1.52 ABS# (0-10) L 11/06/22 12:45 Total Protein 6.5 g/dL (6.6-8.7) L 11/06/22 10:45 Albumin 3.9 g/dL (3.5-5.2) 11/06/22 10:45 Globulin 2.6 g/dL (1.3-4.6) 11/06/22 10:45 Influenza Type A Ag negative (Negative) 11/06/22 11:39 Influenza Type B Ag negative (Negative) 11/06/22 11:39 Micro: Microbiology 11/06/22 11:45 Blood Culture - Preliminary Blood SPECIMEN COLLECTED 11/06/22 11:54 Blood Culture - Preliminary Blood SPECIMEN COLLECTED A&P Assessment and plan (1) Acute exacerbation of chronic obstructive pulmonary disease: With hypoxemia requiring above baseline oxygenation requirements and significant wheezing persisting after several breathing treatments. Chronically on Daliresp and Pulmicort in addition to albuterol. Previously followed with Dr. Darby. (2) Sinus tachycardia: Secondary to respiratory status and breathing treatments. At times monitoring appears to show more significant tachycardia secondary to tremor. Blood pressures are stable. (3) Diastolic CHF: Chronic, not currently acute. Chronically on Lasix and Aldactone. With Dr. Piper outpatient. (4) Generalized anxiety disorder: Chronically on BuSpar and clonazepam. Also has a history of schizophrenia for which she is on Abilify and benztropine. (5) Tremor: Chronic resting tremor (6) BMI 40.0-44.9, adult: Plan Overactive bladder on chronic tolterodine Osteoarthritis status post recent left knee steroid injection and chronically on as needed Tylenol and tramadol Seasonal allergies on chronic cough loratadine Gastroesophageal reflux disease on chronic PPI and Carafate Observation admission Pulmonary toilet scheduled and as needed Inhaled and systemic steroids Oxygen therapy, weaning back to 2.5 baseline as able Continue home Daliresp Telemetry monitoring Check BNP Serial cardiac enzymes Continue home diuretic therapy currently Monitor volume status and renal function Continue home Abilify, benztropine, clonazepam and BuSpar Continue home prazosin Continue home PPI and Carafate Continue home loratadine Continue home Tylenol and tramadol for pain Supportive care otherwise Findings, concerns and plans were discussed with patient and she was given an opportunity to ask questions Anticipate disposition back to skilled facility with additional medications for acute COPD ongoing treatment plus or minus additional antihypertensive/rate controlling agent depending on clinical course, along with follow-up to primary care provider and pulmonology as needed Allow natural Attestations Medical Necessity Statement*: Currently anticipate a stay less than two midnights in a patient with a history of COPD presenting with acute exacerbation. Currently requiring additional oxygen from baseline, though has shown some improvement with steroids and nebulizer treatments administered in the emergency room. Care and plans as noted above. and Moderate Time for a total of 60 minutes, includes reviewing past or interval history, examining/interviewing patient, placing orders and documenting encounter Diagnoses Acute exacerbation of chronic obstructive pulmonary disease J44.1 Sinus tachycardia R00.0 Diastolic CHF I50.30 Generalized anxiety disorder F41.1 Tremor R25.1 BMI 40.0-44.9, adult Z68.41
--- NOTE | 2022-11-06 15:06 | USCV_ITS ---
Muriel Agarwal Age: 77 Gender: F : 1945 Exam Date: 11/06/2022 23:50 Ordering Phys: Winnie Katz MD Technologist: JADEN Exam Location: [facility] [place] Indication: cp, sob, copd / chf want EF only BP: 163 / 106 HR: 94 Rhythm: Sinus Technical Quality: Fair with [employer] MEASUREMENTS (Male / Female) Normal Values 2D ECHO LV Diastolic Diameter PLAX 3.8 cm 4.2 - 5.9 / 3.9 - 5.3 cm LV Systolic Diameter PLAX 2.7 cm IVS Diastolic Thickness 1.7 cm 0.6 - 1.0 / 0.6 - 0.9 cm IVS Systolic Thickness 1.6 cm LVPW Diastolic Thickness 1.7 cm 0.6 - 1.0 / 0.6 - 0.9 cm LVPW Systolic Thickness 1.8 cm LVOT Diameter 2.1 cm LV Ejection Fraction 2D Teich 56.2 % LV Ejection Fraction MOD 2C 57.4 % LV Ejection Fraction 2C AL 57.9 % LA Diameter 4.4 cm LA Width 4.1 cm LA Height 5.5 cm RA Width 3.9 cm RA Height 4.4 cm Aorta at Sinotubular Diameter 3.5 cm IVC Diameter 1.8 cm M-MODE Aortic Annulus Diameter 4.7 cm LA Ao Ratio MM 0.9 DOPPLER AV Peak Velocity 111.0 cm/s LVOT Peak Velocity 90.0 cm/s AV Area Cont Eq vti 2.8 cm squared AV Area Cont Eq pk 2.7 cm squared MV Area PHT 4.8 cm squared Mitral E to A Ratio 0.8 MV E' Velocity 45.5 cm/s Mitral E to MV E' Ratio 11.5 Mitral E to LV E' Lateral Ratio 10.3 Mitral E to LV E' Septal Ratio 13.1 TV Peak E Velocity 44.0 cm/s FINDINGS Left Ventricle Left ventricle is normal in size. LV systolic function is normal with EF of 55 to 60%. No regional wall motion abnormalities are seen. Grade 1 diastolic dysfunction Right Ventricle Grossly normal Right Atrium Normal in size Left Atrium Dilated Mitral Valve Moderate mitral annular calcification. No significant mitral regurgitation. Aortic Valve Not well-visualized. No significant stenosis. Tricuspid Valve Trace tricuspid regurgitation. Insufficient TR jet to calculate RVSP. Pulmonic Valve Not well-visualized Pericardium Grossly normal Aorta Normal in size IVC Appears to be normal CONCLUSIONS LV systolic unction is normal with EF 55 to 60% Grade 1 diastolic dysfunction Left atrial dilation Trace tricuspid regurgitation Prior echocardiogram from 2020, no significant changes are seen. Frandy Piper MD (Electronically Signed) Final Date: 07 November 2022 12:14 S
[2022-11-06 15:44] LABS: NT Pro B Type Natriuretic Pept 321 pg/mL (0-450)
--- NOTE | 2022-11-06 16:32 | PC.NURSE ---
Report called to Hillary MANZANO
[2022-11-06 17:18] LABS: Troponin 5 6HR 9.65 ng/L (0-10)
[2022-11-06 17:24] LABS: Troponin 5 6HR Delta -1.35 ng/L (0-12)
--- NOTE | 2022-11-06 17:48 | ECG_ITS ---
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 Measurements Intervals [place] Rate: 106 P: 67 WI: 199 QRS: 48 QRSD: 87 T: 52 QT: 327 QTc: 436 Interpretive Statements SINUS TACHYCARDIA ABNORMAL RHYTHM ECG Compared to ECG 11/06/2022 13:27:44 Myocardial infarct finding no longer present Electronically Signed On 11-06-2022 19:17:38 CLOTHING WORKER by Elton Alves M.D. [email or web address] memorial hospitalUniversityLyfeselect medical specialty hospital - cincinnati northAudiodraft/store/OM/[id number]
[2022-11-06] MEDS: sucralfate 1 gm Tablet PO (18:41)
[2022-11-06] MEDS: tolterodine 2 mg Tablet PO (18:41)
[2022-11-06] MEDS: docusate sodium 100 mg Capsule PO (18:41)
[2022-11-06] MEDS: spironolactone 25 mg Tablet PO (18:41)
[2022-11-06] MEDS: gabapentin 300 mg Capsule PO (18:41)
[2022-11-06] MEDS: sennosides 8.6 mg Tablet PO (18:41)
[2022-11-06] MEDS: enoxaparin 40 mg/0.4 mL Syringe SUBCUT (18:41)
[2022-11-06] MEDS: BuSPIRONE 10 mg Tablet PO (18:42)
[2022-11-06] MEDS: prazosin 1 mg Capsule PO (18:42)
--- NOTE | 2022-11-06 19:08 | PC.NURSE ---
Report given to Gloria
[2022-11-06] MEDS: ipratropium 0.5 mg/2.5 mL Neb INHALATION (20:36)
[2022-11-06] MEDS: budesonide 0.5 mg/2 mL Neb INHALATION (20:37)
[2022-11-06] MEDS: albuterol 2.5 mg/3 mL Neb INHALATION (20:37)
[2022-11-06] MEDS: metoprolol tartrate 1 mg/1 mL SDV 5 mL 5 MG IVP (22:47)
[2022-11-06] MEDS: guaiFENesin 100 mg/5 mL UDC 10 mL 200 MG PO (22:47)
--- NOTE | 2022-11-06 23:16 | ECG_ITS ---
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 Measurements Intervals [place] Rate: 94 P: 109 UT: 196 QRS: 43 QRSD: 85 T: 56 QT: 341 QTc: 427 Interpretive Statements SINUS RHYTHM Compared to ECG 11/06/2022 17:48:42 Sinus tachycardia no longer present Electronically Signed On 11-07-2022 17:37:54 GRAIN RECEIVER by Frandy Piper M.D. [email or web address] [employer] Technologywiser hospital for women and infantsOpen Box Technologiesmercy health springfield regional medical centerHigher Learning Technologies/store/OM/[id number]
[2022-11-07] VITALS (17 sets, daily range): BP systolic 115–138; BP diastolic 65–76; PULSE 86–110; RESP 17–20; TEMP 36.6–37.4; O2SAT 90–97
[2022-11-07] MEDS: TRAMadol 50 mg Tablet PO ×3 (01:17→18:30)
[2022-11-07] MEDS: guaiFENesin 100 mg/5 mL UDC 10 mL 200 MG PO (04:07)
[2022-11-07 04:48] LABS: Hematocrit 38.7 % (37.0-47.0); Hemoglobin 12.5 g/dL (11.5-15.3); Lymphocytes # 0.6 10^3/uL (0.8-4.8); Mean Corpuscular HGB Conc 32.3 g/dL (30.0-36.0); Mean Corpuscular Hemoglobin 27.7 pg (28.0-34.0); Mean Corpuscular Volume 85.8 fl (81-99); Mean Platelet Volume 9.3 fL (7.4-10.4); Monocytes % 0.6 %; Neutrophils # 4.43 10^3/uL (1.8-7.7); Nucleated Red Blood Cells % 0 %; Platelet Count 249 10^3/cmm (130-400); Red Blood Count 4.51 10^6/uL (4.1-5.3); Red Cell Distribution Width 14.5 % (12.1-15.1); White Blood Count 5.1 10^3/uL (4.0-10.0)
[2022-11-07 05:14] LABS: Anion Gap 14.2 (5-19); Blood Urea Nitrogen 10 mg/dL (8-23); Calcium 9.1 mg/dL (8.5-10.5); Carbon Dioxide 29 mmol/L (22-29); Chloride 95 mmol/L (98-107); Glucose 172 mg/dL (65-115); Magnesium 2.2 mg/dL (1.7-2.3); Osmolality Calculated 281 mOsm/kg (285-295); Phosphorus 2.7 mg/dL (2.5-4.5); Potassium 4.2 mmol/L (3.5-5.1); Sodium 134 mmol/L (136-145)
[2022-11-07] MEDS: perflutren protein-a microsphr 0.22 mg/mL SDV 3 mL IV (05:46)
[2022-11-07] MEDS: montelukast sodium 10 mg Tablet PO (06:20)
[2022-11-07] MEDS: loratadine 10 mg Tablet PO (06:20)
[2022-11-07] MEDS: ARIPiprazole 10 mg Tablet PO (06:20)
[2022-11-07] MEDS: FUROsemide 40 mg Tablet PO (06:21)
[2022-11-07] MEDS: roflumilast 500 mcg Tablet PO (06:21)
[2022-11-07] MEDS: sucralfate 1 gm Tablet PO ×2 (06:21→18:05)
[2022-11-07] MEDS: pantoprazole DR 40 mg Tablet PO (06:21)
[2022-11-07] MEDS: BuSPIRONE 10 mg Tablet PO ×2 (06:21→18:05)
[2022-11-07] MEDS: CLONazepam 0.5 mg Tablet 0.25 MG PO (06:21)
[2022-11-07] MEDS: aspirin 81 mg EC Tablet PO (06:21)
[2022-11-07] MEDS: sennosides 8.6 mg Tablet PO (06:21)
[2022-11-07] MEDS: levoFLOXacin 750 mg Tablet PO (06:21)
[2022-11-07] MEDS: spironolactone 25 mg Tablet PO (06:21)
[2022-11-07] MEDS: diclofenac 1% Topical Gel 100 gm 1 APPLIC TOPICAL ×2 (06:23→18:05)
[2022-11-07] MEDS: gabapentin 300 mg Capsule PO ×2 (06:40→18:05)
[2022-11-07] MEDS: acetaminophen 325 mg Tablet 650 MG PO ×2 (08:02→18:31)
[2022-11-07] MEDS: tolterodine 2 mg Tablet PO ×2 (08:03→17:33)
[2022-11-07] MEDS: docusate sodium 100 mg Capsule PO (08:03)
[2022-11-07] MEDS: potassium chloride ER 20 mEq Tablet PO (08:03)
[2022-11-07] MEDS: ipratropium 0.5 mg/2.5 mL Neb INHALATION ×4 (08:29→21:38)
[2022-11-07] MEDS: albuterol 2.5 mg/3 mL Neb INHALATION ×4 (08:29→21:38)
[2022-11-07] MEDS: budesonide 0.5 mg/2 mL Neb INHALATION ×2 (08:29→21:38)
--- NOTE | 2022-11-07 11:51 | PM.PN ---
Subjective Subjective: Patient is experiencing conversational dyspnea She is DNI/DNI Spoke with her sister as well who is at the bedside Patient does not want to pursue any aggressive interventions she wants to go with hospice care she is wheelchair-bound because of her arthritis and exertional dyspnea Vitals/I&O/Wt Last Vital Signs Temp 98.2 F 11/07/22 11:27 Pulse 99 11/07/22 11:35 Resp 18 11/07/22 11:28 BP 122/73 11/07/22 11:27 Pulse Ox 94 11/07/22 11:28 O2 Del Method 11/07/22 11:28 O2 Flow Rate 4 11/07/22 11:28 11/06/22 11/07/22 11/07/22 22:59 06:59 14:59 Intake Total 240 / 240 540 / 540 Balance 240 / 240 540 / 540 Weight last 48 hrs Weight 111.13 kg Weight 111.13 kg Physical Exam Narrative: patient is on 4 L At baseline uses 3 L at the intermediate Patient is awake and alert Had 1 bowel movement today S1, S2 No active chest pain Audible wheezing Lower extremity no edema Data 11/07/22 04:37 11/07/22 04:37 Micro: Microbiology 11/06/22 11:45 Blood Culture - Preliminary Blood SPECIMEN COLLECTED 11/06/22 11:54 Blood Culture - Preliminary Blood SPECIMEN COLLECTED A&P Assessment and plan (1) Generalized anxiety disorder: (2) Dysthymic disorder: (3) COPD (chronic obstructive pulmonary disease): Qualifiers: COPD type: chronic bronchitis Chronic bronchitis type: unspecified Qualified Code(s): J42 - Unspecified chronic bronchitis (4) Primary localized osteoarthritis of left knee: (5) Acute exacerbation of chronic obstructive pulmonary disease: (6) Tremor: (7) Diastolic CHF: (8) On home oxygen therapy: (9) Dementia: Plan severe COPD Conversational dyspnea At baseline uses 3 L Currently on 4 L Family at the bedside Patient has opted for call or contact centre manager updated Family updated Diastolic CHF mild exacerbation continue low-dose Lasix Constipation: Had 1 bowel movement, continue aggressive bowel regimen Plan to discharge her to intermediate once hospital bed is set up via hospice DNR/DNI Cardiac diet COPD exacerbation: Continue IV steroids for active wheezing Attestations Medical Necessity Statement*: Discharge to hospice Coding Level of Care Code 87435 Diagnoses Generalized anxiety disorder F41.1 Dysthymic disorder F34.1 COPD (chronic obstructive pulmonary disease) J42 COPD type: chronic bronchitis Chronic bronchitis type: unspecified Primary localized osteoarthritis of left knee M17.12 Acute exacerbation of chronic obstructive pulmonary disease J44.1 Tremor R25.1 Diastolic CHF I50.30 On home oxygen therapy Z99.81 Dementia F03.90
[2022-11-07] MEDS: enoxaparin 40 mg/0.4 mL Syringe SUBCUT (17:32)
[2022-11-07] MEDS: prazosin 1 mg Capsule PO (18:05)
[2022-11-07] MEDS: ondansetron 2 mg/ML SDV 2 mL 4 MG IVP (18:25)
[2022-11-08] VITALS (20 sets, daily range): BP systolic 134–154; BP diastolic 70–95; PULSE 76–112; RESP 16–20; TEMP 36.7–37.4; O2SAT 91–95
[2022-11-08] MEDS: TRAMadol 50 mg Tablet PO ×2 (01:30→16:15)
[2022-11-08] MEDS: ondansetron 2 mg/ML SDV 2 mL 4 MG IVP ×3 (01:30→18:38)
[2022-11-08] MEDS: guaiFENesin 100 mg/5 mL UDC 10 mL 200 MG PO (01:30)
[2022-11-08] MEDS: CLONazepam 0.5 mg Tablet 0.25 MG PO (06:33)
[2022-11-08] MEDS: levoFLOXacin 750 mg Tablet PO (06:33)
[2022-11-08] MEDS: sennosides 8.6 mg Tablet PO (06:33)
[2022-11-08] MEDS: acetaminophen 325 mg Tablet 650 MG PO (06:33)
[2022-11-08] MEDS: ARIPiprazole 10 mg Tablet PO (06:33)
[2022-11-08] MEDS: BuSPIRONE 10 mg Tablet PO (06:33)
[2022-11-08] MEDS: sucralfate 1 gm Tablet PO (06:33)
[2022-11-08] MEDS: roflumilast 500 mcg Tablet PO (06:33)
[2022-11-08] MEDS: FUROsemide 40 mg Tablet PO (06:33)
[2022-11-08] MEDS: gabapentin 300 mg Capsule PO (06:33)
[2022-11-08] MEDS: montelukast sodium 10 mg Tablet PO (06:34)
[2022-11-08] MEDS: diclofenac 1% Topical Gel 100 gm 1 APPLIC TOPICAL ×2 (06:37→19:17)
[2022-11-08] MEDS: pantoprazole DR 40 mg Tablet PO (06:44)
[2022-11-08] MEDS: ipratropium 0.5 mg/2.5 mL Neb INHALATION ×4 (08:14→20:46)
[2022-11-08] MEDS: budesonide 0.5 mg/2 mL Neb INHALATION ×2 (08:14→20:47)
[2022-11-08] MEDS: albuterol 2.5 mg/3 mL Neb INHALATION ×4 (08:14→20:46)
[2022-11-08] MEDS: docusate sodium 100 mg Capsule PO (09:43)
[2022-11-08] MEDS: potassium chloride ER 20 mEq Tablet PO (09:43)
[2022-11-08] MEDS: tolterodine 2 mg Tablet PO (09:43)
--- NOTE | 2022-11-08 11:26 | XRR_ITS ---
PROCEDURE INFORMATION: Exam: XR Abdomen Exam date and time: 11/08/2022 12:23 PM Age: 77 years old Clinical indication: Abdominal pain; Generalized; Additional info: Abd pain TECHNIQUE: Imaging protocol: Radiologic exam of the abdomen. Views: Frontal supine view of the abdomen. 1 View. COMPARISON: CT abdomen pelvis w con* [id number] 04/15/2019 9:41 AM FINDINGS: Gastrointestinal tract: Very distended stomach. Other bowel loops are unremarkable. Bones/joints: Right hip replacement. XR/XR KUB portable [id number] IMPRESSION: Very distended stomach.
--- NOTE | 2022-11-08 11:33 | PM.PN ---
Subjective Subjective: Patient had a few episode of emesis this morning Complaining of epigastric pain Given GI cocktail, requested KUB she had 1 bowel movement yesterday, Eating her diet Still experiencing wheezing She is agreeable for hospice She would allow us to 3 PM blood drawn for today Vitals/I&O/Wt Last Vital Signs Temp 98.0 F 11/08/22 08:00 Pulse 95 11/08/22 11:14 Resp 18 11/08/22 11:09 BP 134/81 11/08/22 08:00 Pulse Ox 92 11/08/22 11:09 O2 Del Method 11/08/22 11:09 O2 Flow Rate 3.5 11/08/22 11:09 11/07/22 11/08/22 11/08/22 22:59 06:59 14:59 Intake Total 720 / 1380 0 / 0 Balance 720 / 1380 0 / 0 Weight last 48 hrs Weight 111.13 kg Physical Exam Narrative: Patient is laying supine In distress because of epigastric pain Had couple episode of emesis Abdomen soft no active signs of peritonitis Neuro: Following S1, S2 GCS 15 Audible wheezing Bilateral breath sounds with wheezing Currently on 3.5 L Data 11/07/22 04:37 11/07/22 04:37 Micro: Microbiology 11/06/22 11:45 Blood Culture - Preliminary Blood NEGATIVE TO DATE 11/06/22 11:54 Blood Culture - Preliminary Blood NEGATIVE TO DATE A&P Assessment and plan (1) Generalized anxiety disorder: (2) Other schizophrenia: (3) Dysthymic disorder: (4) COPD (chronic obstructive pulmonary disease): Qualifiers: COPD type: chronic bronchitis Chronic bronchitis type: unspecified Qualified Code(s): J42 - Unspecified chronic bronchitis (5) Acute exacerbation of chronic obstructive pulmonary disease: (6) Tremor: (7) Diastolic CHF: (8) On home oxygen therapy: (9) Dementia: Plan Acute COPD exacerbation Active wheezing Increase the dose of steroids Continue budesonide Epigastric pain Emesis Requested KUB Patient had 1 bowel movement yesterday Abdomen nontender on examination Active wheezing increase the dose of steroids Acute on chronic hypoxia at baseline uses 3 L currently on 3.5 L Requested D-dimer Diastolic CHF mild exacerbation continue Lasix Patient is opting for palliative/hospice care at their facility However because of her active wheezing and emesis I would not be able to discharge her today site operations manager updated DNR/DNI Switch diet to bland Attestations Medical Necessity Statement*: Continue medical management Coding Level of Care Code 52746 Diagnoses Generalized anxiety disorder F41.1 Other schizophrenia F20.89 Dysthymic disorder F34.1 COPD (chronic obstructive pulmonary disease) J42 COPD type: chronic bronchitis Chronic bronchitis type: unspecified Acute exacerbation of chronic obstructive pulmonary disease J44.1 Tremor R25.1 Diastolic CHF I50.30 On home oxygen therapy Z99.81 Dementia F03.90
[2022-11-08] MEDS: lactulose oral liq 20 gm/30 mL UDC 30 GM PO (12:17)
[2022-11-08] MEDS: lidocaine 2% viscous 15 ML, aluminum-mag hydrox-simethicon 30 ML, sucralfate oral liq 1 GM PO (12:18)
[2022-11-08 12:52] LABS: D Dimer 0.45 ug/mIFEU (0-0.59)
[2022-11-08 12:54] LABS: Troponin T (5th) Once 13 ng/L (0-10)
[2022-11-08] MEDS: morphine 4 mg/mL SDV 1 mL IVP ×3 (14:17→22:45)
[2022-11-08] MEDS: enoxaparin 40 mg/0.4 mL Syringe SUBCUT (18:37)
--- NOTE | 2022-11-08 20:08 | PC.NURSE ---
Attempt to insert NG not successful. Pt forcing tube out, is very anxious and in pain. Pt referred to hospitalist for review. NO received and noted for Morphine 2mg IVP x now.
[2022-11-08] MEDS: morphine 4 mg/mL SDV 1 mL 2 MG IVP (20:27)
--- NOTE | 2022-11-08 21:13 | XRR_ITS ---
PROCEDURE INFORMATION: Exam: XR Chest Exam date and time: 11/08/2022 9:17 PM Age: 77 years old Clinical indication: Device placement; Ng tube; Additional info: Ng placement TECHNIQUE: Imaging protocol: Radiologic exam of the chest. Views: 1 view. COMPARISON: CR XR chest 1V portable [id number] 11/06/2022 12:10 PM FINDINGS: Tubes, catheters and devices: Enteric tube terminates proximal stomach. Lungs: Reticular changes of interstitium of low lung volumes. Pleural spaces: Unremarkable. No pleural effusion. No pneumothorax. Heart/Mediastinum: Unremarkable. No cardiomegaly. Bones/joints: Mid cervical spine ACDF. Gastrointestinal tract: Stomach moderately distended with gas. XR/XR chest 1V portable [id number] IMPRESSION: Enteric tube terminates proximal stomach. Recommend 10 cm advancing.
--- NOTE | 2022-11-08 22:50 | XRR_ITS ---
PROCEDURE INFORMATION: Exam: XR Chest Exam date and time: 11/08/2022 11:12 PM Age: 77 years old Clinical indication: Device placement; Patient HX: Check S/P advancement of ng tube. ; Additional info: Ng advancement TECHNIQUE: Imaging protocol: Radiologic exam of the chest. Views: 1 view. COMPARISON: CR XR chest 1V portable [id number] 11/08/2022 9:17 PM FINDINGS: Tubes, catheters and devices: Enteric tube in the stomach. Lungs: Reticular changes of pulmonary interstitium. Pleural spaces: Unremarkable. No pleural effusion. No pneumothorax. Heart/Mediastinum: Mild cardiomegaly. Bones/joints: Unremarkable. XR/XR chest 1V portable [id number] IMPRESSION: Enteric tube advanced further into the stomach with unremarkable position.
--- NOTE | 2022-11-08 22:51 | PC.NURSE ---
CXR shows that NG needs to be advanced 10mm. NG advanced and resecured. Radiology notified of new orders
[2022-11-09] VITALS (17 sets, daily range): BP systolic 118–141; BP diastolic 54–75; PULSE 62–101; RESP 15–24; TEMP 36.5–36.9; O2SAT 89–94
[2022-11-09 05:20] LABS: Blood Urea Nitrogen 22 mg/dL (8-23); Calcium 8.8 mg/dL (8.5-10.5); Carbon Dioxide 29 mmol/L (22-29); Chloride 97 mmol/L (98-107); Glucose 124 mg/dL (65-115); Osmolality Calculated 283 mOsm/kg (285-295); Sodium 134 mmol/L (136-145)
[2022-11-09] MEDS: roflumilast 500 mcg Tablet PO (06:26)
[2022-11-09] MEDS: ARIPiprazole 10 mg Tablet PO (06:26)
[2022-11-09] MEDS: sennosides 8.6 mg Tablet PO (06:26)
[2022-11-09] MEDS: sucralfate 1 gm Tablet PO ×2 (06:26→19:29)
[2022-11-09] MEDS: montelukast sodium 10 mg Tablet PO (06:26)
[2022-11-09] MEDS: morphine 4 mg/mL SDV 1 mL IVP ×3 (06:26→21:04)
[2022-11-09] MEDS: FUROsemide 40 mg Tablet PO (06:27)
[2022-11-09] MEDS: pantoprazole DR 40 mg Tablet PO (06:27)
[2022-11-09] MEDS: gabapentin 300 mg Capsule PO (06:27)
[2022-11-09] MEDS: levoFLOXacin 750 mg Tablet PO (06:27)
[2022-11-09] MEDS: diclofenac 1% Topical Gel 100 gm 1 APPLIC TOPICAL ×2 (06:28→19:00)
[2022-11-09] MEDS: BuSPIRONE 10 mg Tablet PO ×2 (06:29→19:29)
[2022-11-09] MEDS: ipratropium 0.5 mg/2.5 mL Neb INHALATION ×4 (07:33→21:28)
[2022-11-09] MEDS: budesonide 0.5 mg/2 mL Neb INHALATION ×2 (07:33→21:16)
[2022-11-09] MEDS: albuterol 2.5 mg/3 mL Neb INHALATION ×4 (07:33→21:16)
--- NOTE | 2022-11-09 09:12 | PC.CHAP ---
Pastoral Care Encounter/Spiritual Assessment Type of Contact [] Declined railroad emergency services manager visit [] Patient/Family/Request visit [] Outpatient visit [] Follow-up visit [] Physician referral [] Code/Alert [x] Routine visit [] Staff referral [] Actively dying [] Patient sleeping [x] Family support [] [] Out of room [] Palliative care [] [] Receiving care in room [] Pre-surgical visit [] Trauma [] Long length of stay [] ICU visit [] Other: Relational/Emotional Strength x[] Patient feels connected with others/family/visitors/staff [] Distress [] Loneliness/isolation [] Abandonment Spirituality of Patient [x] Person of Britney [] Attends Evangelical of their Britney [x] Believes in Prayer [] Reads Bible or Anabaptist materials [] There are Spiritual issues to be addressed Animal Skinner Interventions [x] Prayer [x Active listening [] Non-anxious presence [x] Spiritual/emotional support [] Crisis/trauma care [] Spiritual counseling [] Bereavement support [] Provided bereavement packet [] Provided Bible/devotional materials [] Provided toy/stuffed animal, coloring book to patient or family member [] Provided Communion [] Anointing/[place] [] Salvation [x] Completed spiritual assessment [] Other: Impact on Illness or Injury [] Angry [] Fearful [] Anxious [] Often cries [] Exhaustion [] Unable to work [] Unable to attend hinduism [] Unable to walk/stand [] Unable to read [] Unable to drive [] Unable to eat/drink [] Unable to sleep [] Unable to be with family [] Patient intubated [] Other: Summary Time spent with patient 10 min
--- NOTE | 2022-11-09 10:18 | P.PN_ITS ---
Subjective Subjective: NG tube was placed yesterday No emesis overnight 400 stomach contents obtained in the container Patient is asking for the NG tube to be removed Agreeable to full CT scan first Son updated his name is Jose Rafael who is in [place] he is planning to come to [place] probably on Sunday Patient is asking her sister to be at the bedside Hold. P.o. meds Vitals/I&O/Wt Last Vital Signs Temp 97.8 F 11/09/22 08:00 Pulse 93 11/09/22 08:00 Resp 15 11/09/22 08:00 BP 137/68 11/09/22 08:00 Pulse Ox 94 11/09/22 08:00 O2 Del Method 11/09/22 08:00 O2 Flow Rate 3.5 11/09/22 07:38 11/08/22 11/09/22 11/09/22 22:59 06:59 14:59 Intake Total 240 / 360 0 / 360 Balance 240 / 360 0 / 360 Physical Exam Narrative: Patient is stating that she wants to eat and wants her NG tube out NG to suction Abdomen distended, nontender Clinically dehydrated Currently on 3 L nasal cannula Able to communicate Nonfocal neuro exam Anxious appearing Hyperventilating Hemodynamically stable Able to answer my questions appropriately Mild wheezing present Data 11/07/22 04:37 11/09/22 04:28 A&P Assessment and plan (1) Generalized anxiety disorder: (2) Other schizophrenia: (3) Dysthymic disorder: (4) Diastolic CHF: (5) COPD (chronic obstructive pulmonary disease): Qualifiers: COPD type: chronic bronchitis Chronic bronchitis type: unspecified Qualified Code(s): J42 - Unspecified chronic bronchitis (6) Dementia: (7) Recurrent vomiting: (8) Gastric distention: Plan Gastric distention Recurrent emesis NG tube was placed on 11/[address] scan today before we decide to clamp her NG tube 500 cc of stomach content obtained Continue IV fluids Cut back on IV steroids Dehydration: Continue IV fluid COPD exacerbation, Anxious appearing I will give her IV Ativan on as-needed basis Currently on 3 L cannula Patient has decided to opt for palliative/[facility] care [facility] However she is not stable to be discharged yet Diastolic CHF: Hold Lasix, she is requiring IV fluids because of n.p.o. status Chronic resting tremors: No acute exacerbation Generalized anxiety anxiolytics on hold would use IV [id number] for as needed basis Spoke with her son Jose Rafael senior category manager updated, Attestations Medical Necessity Statement*: CT abdomen pelvis today, not ready to be discharged Coding Level of Care Code 90058 Diagnoses Generalized anxiety disorder F41.1 Other schizophrenia F20.89 Dysthymic disorder F34.1 Diastolic CHF I50.30 COPD (chronic obstructive pulmonary disease) J42 COPD type: chronic bronchitis Chronic bronchitis type: unspecified Dementia F03.90 Recurrent vomiting R11.10 Gastric distention K31.89
--- NOTE | 2022-11-09 10:18 | CT_ITS ---
WS: [id number] CT ABDOMEN PELVIS TECHNIQUE: Noncontrast CT of the abdomen and pelvis with coronal and sagittal reformatted images. CLINICAL INFORMATION: sbo, recurrent nausea vomiting, COMPARISON: 7 30,019 DLP: 1571.[address] scans at [facility] use at least one of these dose optimization techniques: automated e xposure control; mA and/or kV adjustment per patient size (includes targeted exams where dose is matc hed to clinical indication); or iterative reconstruction. FINDINGS:Sigmoid diverticulosis. No evidence of acute diverticulitis. Colon is decompressed. No evide nce of high-grade small or large bowel obstruction. Small bowel is decompressed. Air-fluid level in t he proximal stomach. Gaseous distention of the transverse colon Normal noncontrast liver. Enteric tube with tip in the 2nd portion the duodenum. Normal noncontrast s pleen. Small esophageal hiatal hernia. Subsegmental atelectasis in the lung bases. Trace pleural flui d. Adrenal glands are normal. No hydronephrosis in either kidney. No obstructing renal or ureteral ca lculi. Urine distended bladder. RIGHT JERAMY degrades images in the pelvis. Fatty atrophy of the pancrea s. Noncontrast gallbladder appears normal. Normal caliber abdominal aorta. Adrenal glands are normal. Normal noncontrast spleen. Lumbar scoliosis. CT/CT abdomen pelvis wo con [id number] IMPRESSION: 1. No evidence of high-grade small or large bowel obstruction. Enteric tube wi th tip in in the 2nd portion the duodenum. 2. Sigmoid diverticulosis. No evidence of acute diverticulitis. 3. Mild gaseous distention of the transverse colon. 4. Urine distended bladder. 5. Compressive atelectasis in the LEFT lower lobe. Trace pleural fluid in the lung bases. 6. No other acute findings.
--- NOTE | 2022-11-09 11:00 | PC.CHAP ---
Pastoral Care Encounter/Spiritual Assessment Type of Contact [] Declined analytical chemistry teacher visit [] Patient/Family/Request visit [] Outpatient visit [] Follow-up visit [] Physician referral [] Code/Alert [x] Routine visit [] Staff referral [] Actively dying [] Patient sleeping [] Family support [] [] Out of room [] Palliative care [] [x] Receiving care in room [] Pre-surgical visit [] Trauma [] Long length of stay [] ICU visit [] Other: Relational/Emotional Strength [x] Patient feels connected with others/family/visitors/staff [xx] Distress [] Loneliness/isolation [] Abandonment Spirituality of Patient [x] Person of Britney [x] Attends Nondenominational of their Britney [x] Believes in Prayer [x] Reads Bible or Synagogue materials [] There are Spiritual issues to be addressed Batch Blender Interventions [x] Prayer [x] Active listening [x] Non-anxious presence [x] Spiritual/emotional support [] Crisis/trauma care [x] Spiritual counseling [] Bereavement support [] Provided bereavement packet [] Provided Bible/devotional materials [] Provided toy/stuffed animal, coloring book to patient or family member [] Provided Communion [] Anointing/[place] [] Salvation [x] Completed spiritual assessment [] Other: Impact on Illness or Injury [] Angry [] Fearful [x] Anxious [] Often cries [] Exhaustion [x] Unable to work [] Unable to attend pentecostalism [] Unable to walk/stand [] Unable to read [] Unable to drive [] Unable to eat/drink [] Unable to sleep [] Unable to be with family [] Patient intubated [] Other: Summary in pain has negative feelings doesn't know about her health waiting on doctors report will go home Time spent with patient 10 mins
[2022-11-09] MEDS: dextrose 5%-lactated ringers 1,000 ML 30 ML IV (11:18)
[2022-11-09] MEDS: LORazepam 2 mg/mL INJ 1 mL 0.5 MG IVP (12:54)
--- NOTE | 2022-11-09 17:28 | PC.NURSE ---
Notified sister re: update.
[2022-11-09] MEDS: enoxaparin 40 mg/0.4 mL Syringe SUBCUT (18:19)
[2022-11-09] MEDS: ondansetron 2 mg/ML SDV 2 mL 4 MG IVP (19:53)
[2022-11-09] MEDS: TRAMadol 50 mg Tablet PO (19:53)
[2022-11-09] MEDS: benztropine 1 mg Tablet 0.5 MG PO (22:31)
[2022-11-10] VITALS (12 sets, daily range): BP systolic 107–152; BP diastolic 74–81; PULSE 88–157; RESP 16–29; TEMP 36.8–37; O2SAT 87–90
[2022-11-10] MEDS: LORazepam 2 mg/mL INJ 1 mL 0.5 MG IVP (00:12)
[2022-11-10] MEDS: TRAMadol 50 mg Tablet PO (01:55)
--- NOTE | 2022-11-10 02:18 | XRR_ITS ---
PROCEDURE INFORMATION: Exam: XR Chest Exam date and time: 11/10/2022 2:40 AM Age: 77 years old Clinical indication: Shortness of breath; Patient HX: Worsening SOB. History of chf and copd. ; Additional info: Increased shortness of breath TECHNIQUE: Imaging protocol: Radiologic exam of the chest. Views: 1 view. COMPARISON: CR XR chest 1V portable [id number] 11/08/2022 11:12 PM FINDINGS: Lungs: Interstitial lung markings are increased in the right lung. The left lungs obscured by opacification. Pleural spaces: Negative for pneumothorax. Left pleural effusion not excluded. Heart/Mediastinum: Cardiomegaly is suspected but the cardiac borders are difficult to characterize. Leftward mediastinal deviation. Bones/joints: Unremarkable. XR/XR chest 1V [id number] IMPRESSION: Collapse of the left lung which is new from comparison. Left pleural effusion not excluded.
[2022-11-10 02:22] LABS: ABG PCO2 45.9 mmHg (35-45); ABG PH Result 7.45 (7.35-7.45); Arterial Blood Gas Hematocrit 46.6 % (37-47); Base Excess ABG 6.3 mmol/L (-2.0-2.0); Blood Gas Allen Test Pos; Blood Gas Sample Site Radial, right; Blood Gas Sample Type Arterial; HCO3 ABG 31.5 mmol/L (22-26); Oxygen Device NRB; PO2 ABG 48.1 mmHg (80.0-100.0)
[2022-11-10] MEDS: FUROsemide 10 mg/mL SDV 4mL 40 MG IVP (02:29)
[2022-11-10 03:50] LABS: Basophils % 0.1 %; Eosinophils % 0.1 %; Hematocrit 44.6 % (37.0-47.0); Hemoglobin 14.4 g/dL (11.5-15.3); Lymphocytes # 0.5 10^3/uL (0.8-4.8); Lymphocytes % 2.5 %; Mean Corpuscular HGB Conc 32.3 g/dL (30.0-36.0); Mean Corpuscular Hemoglobin 27.5 pg (28.0-34.0); Mean Corpuscular Volume 85.3 fl (81-99); Mean Platelet Volume 9.1 fL (7.4-10.4); Monocytes # 0.7 10^3/uL (0.2-0.9); Monocytes % 3.8 %; Neutrophils # 17.28 10^3/uL (1.8-7.7); Nucleated Red Blood Cells % 0 %; Platelet Count 265 10^3/cmm (130-400); Red Blood Count 5.23 10^6/uL (4.1-5.3); Red Cell Distribution Width 14.6 % (12.1-15.1); White Blood Count 18.6 10^3/uL (4.0-10.0)
[2022-11-10 04:11] LABS: Anion Gap 14.3 (5-19); Blood Urea Nitrogen 28 mg/dL (8-23); Calcium 8.9 mg/dL (8.5-10.5); Carbon Dioxide 29 mmol/L (22-29); Chloride 96 mmol/L (98-107); Glucose 147 mg/dL (65-115); Osmolality Calculated 290 mOsm/kg (285-295); Potassium 3.3 mmol/L (3.5-5.1); Sodium 136 mmol/L (136-145)
[2022-11-10 05:14] LABS: NT Pro B Type Natriuretic Pept 1188 pg/mL (0-450)
[2022-11-10] MEDS: morphine 4 mg/mL SDV 1 mL IVP ×4 (05:51→17:53)
--- NOTE | 2022-11-10 06:40 | PM.PN ---
Subjective Subjective: Overnight events noted Patient became hypoxic overnight X-ray showing left lung collapse CT abdomen pelvis did not show any signs of obstruction, I did allow her to eat yesterday Continue her p.o. meds Patient is able to follow commands Patient is requesting to continue hospice care, sister is requesting if we can keep her on BiPAP until son arrives tomorrow consult Consult with Dr. Vines for inpatient hospice Vitals/I&O/Wt Last Vital Signs Temp 98.6 F 11/10/22 03:25 Pulse 98 11/10/22 05:25 Resp 25 H 11/10/22 05:51 BP 142/81 11/10/22 03:25 Pulse Ox 87 L 11/10/22 05:25 O2 Del Method 11/10/22 03:25 O2 Flow Rate 60 11/10/22 02:37 FiO2 100 11/10/22 05:25 11/09/22 11/09/22 11/10/22 14:59 22:59 06:59 Intake Total 509 / 509 120 / 629 Output Total 900 / 900 150 / 1050 1400 / 2450 Balance -900 / -900 359 / -541 -1280 / -1821 Physical Exam Narrative: Patient is on heated high flow Blood pressure stable Abdomen soft, distended nontender Patient is able to follow commands Mild wheezing Rhonchi Diminished breath sounds left lung Bowel sounds sluggish but present Lower extremity no edema Patient is very anxious and restless S1, S2 Urinary Catheter Management: Riojas: Cath Placed During This Visit: yes Reason for Continuing Indwelling Catheter: Acute Urinary Retention or Obstruction Urinary Catheter Date of Insertion: 11/09/22 Urinary Catheter Time of Insertion: 11:30 Data 11/10/22 03:41 11/10/22 03:41 A&P Assessment and plan (1) Collapse of left lung: (2) Gastric distention: (3) Recurrent vomiting: (4) Generalized anxiety disorder: (5) Other schizophrenia: (6) COPD (chronic obstructive pulmonary disease): Qualifiers: COPD type: chronic bronchitis Chronic bronchitis type: unspecified Qualified Code(s): J42 - Unspecified chronic bronchitis (7) Acute exacerbation of chronic obstructive pulmonary disease: (8) Tremor: (9) BMI 40.0-44.9, adult: (10) Diastolic CHF: (11) On home oxygen therapy: (12) Dementia: Plan Left lung collapse Compressive atelectasis Patient has remained in bed throughout her hospitalization She has no motivation at all to get out of bed Poor functional status Acute on chronic hypoxia secondary to left lung collapse We will request for chest physiotherapy and Mucomyst She is DNI/DNI I would avoid BiPAP agree with heated high flow Gastric distention: Improved She was not given BiPAP because gastric distention most likely this is related to her lack of mobility No signs obstruction on CT abdomen pelvis COPD exacerbation due to above-mentioned reasons Patient seems to have severe COPD with conversational dyspnea and persistent wheezing She does not want to be intubated, patient and family both leaning towards palliative/hospice care Hypertension related to anxiety Continue her anxiolytics and antipsychotics DNR/DNI We will keep her on full liquid diet for now Coarse tremors at baseline, no acute worsening History of dysthymia scale schizophrenia: Patient is anxious and restless Guarded prognosis Family updated Sister is requesting us to keep her on hospice care in the hospital, inpatient hospice care Dr. Goldman updated by myself Son is arriving from [place], it will take around 4 hours Patient and sister both agreeable with inpatient hospice Attestations Medical Necessity Statement*: Continue medical management Coding Level of Care Code 95591 Diagnoses Collapse of left lung J98.11 Gastric distention K31.89 Recurrent vomiting R11.10 Generalized anxiety disorder F41.1 Other schizophrenia F20.89 COPD (chronic obstructive pulmonary disease) J42 COPD type: chronic bronchitis Chronic bronchitis type: unspecified Acute exacerbation of chronic obstructive pulmonary disease J44.1 Tremor R25.1 BMI 40.0-44.9, adult Z68.41 Diastolic CHF I50.30 On home oxygen therapy Z99.81 Dementia F03.90
[2022-11-10] MEDS: levoFLOXacin 750 mg Tablet PO (06:55)
[2022-11-10] MEDS: ARIPiprazole 10 mg Tablet PO (06:55)
[2022-11-10] MEDS: roflumilast 500 mcg Tablet PO (06:56)
[2022-11-10] MEDS: diclofenac 1% Topical Gel 100 gm 1 APPLIC TOPICAL ×2 (06:56→20:20)
[2022-11-10] MEDS: LORazepam 2 mg/mL INJ 1 mL 1 MG IVP (07:12)
[2022-11-10] MEDS: albuterol 2.5 mg/3 mL Neb INHALATION (08:30)
[2022-11-10] MEDS: ipratropium 0.5 mg/2.5 mL Neb INHALATION (08:30)
[2022-11-10] MEDS: budesonide 0.5 mg/2 mL Neb INHALATION (08:30)
[2022-11-10] MEDS: LORazepam 2 mg/mL INJ 1 mL IVP ×3 (14:00→20:19)
[2022-11-10] MEDS: glycopyrrolate 0.2 mg/mL SDV 2 mL IV ×2 (16:31→23:47)
[2022-11-10] MEDS: metoprolol tartrate 1 mg/1 mL SDV 5 mL 5 MG IVP (19:15)
[2022-11-11] VITALS (10 sets, daily range): BP systolic 106–109; BP diastolic 72–74; PULSE 105–179; RESP 16–32; TEMP 36.7–37; O2SAT 75–96
[2022-11-11] MEDS: metoprolol tartrate 1 mg/1 mL SDV 5 mL 5 MG IVP (00:05)
[2022-11-11] MEDS: morphine 4 mg/mL SDV 1 mL IVP ×6 (00:05→23:58)
[2022-11-11] MEDS: LORazepam 2 mg/mL INJ 1 mL IVP ×3 (02:21→05:28)
[2022-11-11] MEDS: diphenhydrAMINE 25 mg Capsule PO (04:37)
[2022-11-11] MEDS: acetaminophen 325 mg Tablet 650 MG PO (05:09)
[2022-11-11] MEDS: ondansetron 2 mg/ML SDV 2 mL 4 MG IVP (05:29)
[2022-11-11] MEDS: levalbuterol 0.63 mg/3 mL Neb INHALATION (05:46)
--- NOTE | 2022-11-11 08:06 | PC.NURSE ---
Patient has gown more and more restless this shift. She has been medicated multiple times with morphine and ativan IV as well as IV metoprolol for increased of heart rate in the 150s to 180s. She wanted to wear her oxymask but has pulled it down multiple times. Supportive care given to all family that has been with tiffany,
--- NOTE | 2022-11-11 08:14 | PM.HP ---
Providers/Chief Complaint Admitting Physician: Winnie Katz MD Primary Care Provider: Randall Solitario MD Chief Complaint: SOB/ PRODUCTIVE COUGH History of Present Illness 77 female came from a retirement with COPD exacerbation, her wheezing was treated with IV steroids and budesonide, she was diagnosed with gastric distention/ileus required NG tube placement, patient was put on BiPAP when she was diagnosed with collapse of left lung most likely mucous plugging and atelectasis combination, patient and family did not agree with any aggressive intervention other than BiPAP, she was DNI/DNI, after multiple family meetings she was transitioned to hospice care because of poor quality of life, she was experiencing conversational dyspnea and did not want any aggressive intervention, Dr. Doc Bustillo consulted for inpatient hospice Review of Systems General: Reports: ROS unobtainable due to mental status (Obtunded due to hypoxia and opioid) Medications/Allergies Home Medications Medication Instructions Recorded Confirmed Last Taken Type acetaminophen 325 mg capsule 650 mg PO TID@,, pain 11/03/19 11/06/22 11/06/22 History (Tylenol) aspirin 81 mg tablet,delayed 81 mg PO DAILY@07 11/03/19 11/06/22 11/06/22 History release (Adult Low Dose Aspirin) benztropine 0.5 mg tablet 0.5 mg PO BID@11/03/19 11/06/22 11/06/22 History bisacodyl 10 mg rectal suppository 10 mg NV DAILY PRN Constipation 11/03/19 11/06/22 Unknown History gabapentin 300 mg capsule 300 mg PO BID@11/03/19 11/06/22 11/06/22 History loratadine 10 mg tablet (Allergy 10 mg PO DAILY@11/03/19 11/06/22 11/06/22 History Relief (loratadine)) magnesium hydroxide 400 mg/5 mL 30 ml PO DAILY PRN Constipation 11/03/19 11/06/22 Unknown History oral suspension (Aguilar Milk of Magnesia) montelukast 10 mg tablet 10 mg PO DAILY@07 11/03/19 11/06/22 11/06/22 History multivitamin 1 tab PO DAILY@07 11/03/19 11/06/22 11/06/22 History pantoprazole 40 mg tablet,delayed 40 mg PO DAILY@0711/03/19 11/06/22 11/06/22 History release sennosides 8.6 mg capsule (senna) 8.6 mg PO TID PRN Constipation 11/03/19 11/06/22 08/02/22 History sucralfate 1 gram tablet 1 gm PO BID@11/03/19 11/06/22 11/06/22 History tramadol 50 mg tablet 100 mg PO Q6H PRN Pain 11/03/19 11/06/22 11/06/22 History potassium chloride 20 mEq 20 meq PO DAILY@09/28/20 11/06/22 11/06/22 History tablet,extended release buspirone 7.5 mg tablet 7.5 mg PO BID@11/10/20 11/06/22 11/06/22 History aripiprazole 10 mg tablet (Abilify) 10 mg PO DAILY@12/07/20 11/06/22 11/06/22 History spironolactone 25 mg tablet 25 mg PO BID@12/07/20 11/06/22 11/06/22 History albuterol sulfate 90 mcg/actuation 2 puff inhalation Q4H PRN Wheezing 01/27/21 11/06/22 Unknown History aerosol inhaler (ProAir HFA) budesonide 0.5 mg/2 mL suspension 0.5 mg inhalation BID@01/27/21 11/06/22 11/06/22 History for nebulization (Pulmicort) phenol 1.4 % mucosal aerosol spray See Rx Instructions .Route .COMPLEX 01/27/21 11/06/22 Unknown History (Throat [place]) albuterol sulfate 2.5 mg/3 mL 2.5 mg inhalation Q4H 07/18/21 11/06/22 11/06/22 History (0.083 %) solution for nebulization clonazepam 0.25 mg disintegrating 0.25 mg PO DAILY@11/17/21 11/06/22 11/06/22 History tablet roflumilast 500 mcg tablet 500 mcg PO DAILY@11/17/21 11/06/22 11/06/22 History (Daliresp) ondansetron HCl 4 mg tablet 4 mg PO Q4H PRN Nausea And Vomiting 12/14/21 11/06/22 Unknown History furosemide 40 mg tablet 40 mg PO DAILY@07 08/02/22 11/06/22 11/06/22 History guaifenesin 100 mg/5 mL oral 200 mg PO Q4H PRN Cough 08/02/22 11/06/22 Unknown History liquid (Tussin) ipratropium 0.5 mg-albuterol 3 mg 3 ml inhalation QID 08/02/22 11/06/22 11/06/22 History (2.5 mg base)/3 mL nebulization soln lactulose 10 gram/15 mL oral 60 ml PO BID PRN Constipation 08/02/22 11/06/22 Unknown History solution prazosin 1 mg capsule 1 mg PO BEDTIME@19 08/02/22 11/06/22 11/05/22 History sennosides 8.6 mg tablet (senna) 8.6 mg PO BID@07,08/02/22 11/06/22 11/06/22 History sodium phosphates 19 gram-7 118 ml NV DAILY PRN Constipation 08/02/22 11/06/22 Unknown History gram/118 mL enema (Enema Disposable) tolterodine 4 mg capsule,extended 4 mg PO DAILY@07 08/02/22 11/06/22 11/06/22 History release 24 hr albuterol sulfate 2.5 mg/3 mL 2.5 mg inhalation DAILY PRN 11/06/22 11/06/22 Unknown History (0.083 %) solution for nebulization Shortness Of Breath diclofenac sodium 1 % topical gel See Rx Instructions .Route .COMPLEX 11/06/22 11/06/22 Unknown History nystatin 100,000 unit/gram topical See Rx Instructions .Route .COMPLEX 11/06/22 11/06/22 Unknown History cream nystatin 100,000 unit/gram topical See Rx Instructions .Route .COMPLEX 11/06/22 11/06/22 Unknown History ointment tramadol 50 mg tablet 50 mg PO Q6H PRN Pain 11/06/22 11/06/22 Unknown History atropine 1 % eye drops 4 drp sublingual Q4H PRN 11/07/22 Unknown Rx secretions #5 mL bisacodyl 10 mg rectal suppository 10 mg NV DAILY PRN constipation #5 11/07/22 Unknown Rx ea lorazepam 2 mg/mL oral concentrate 2 mg sublingual Q4H PRN 11/07/22 Unknown Rx Anxiety/Seizure #30 mL morphine concentrate 100 mg/5 mL 20 mg sublingual DIRECTED PRN 11/07/22 Unknown Rx (20 mg/mL) oral solution Pain/SOB 14 days #30 mL ondansetron 4 mg disintegrating 4 mg translingual Q4H PRN nausea 11/07/22 Unknown Rx tablet #5 tabs Allergies Allergy/AdvReac Type Severity Reaction Status Date / Time doxycycline Allergy Unknown Verified 11/06/22 13:02 PFSH Acute PFSH: Medical History Age related osteoporosis Bipolar 1 disorder Chronic hyponatremia Chronic respiratory failure COPD (chronic obstructive pulmonary disease) Degenerative arthritis of knee Dementia Diastolic CHF Dysphagia Dysthymic disorder Former smoker Generalized anxiety disorder History of GI bleed Hypertension Incontinence Neuritis Nightmare disorder Obesity Osteoarthritis Overactive bladder Psychiatric care PTSD (post-traumatic stress disorder) Schizophrenia Tremor Vitamin D deficiency Surgical History History of cervical spinal surgery Social History Smoking and tobacco status: former smoker Quit status (tobacco): has quit using tobacco Year quit tobacco: 2004 Former quit date comment: 0.5 ppd x 45 Years Second hand smoke exposure: Yes Alcohol intake: never Caregiver/support person: Yes Lives independently: No Housing: Shelter Current occupational status: retired Current gender identity: Female Vitals/I&O/Wt Last Vital Signs Temp 98.3 F 11/10/22 20:00 Pulse 107 H 11/11/22 03:11 Resp 30 H 11/11/22 06:14 BP 107/74 11/10/22 20:00 Pulse Ox 86 L 11/11/22 03:11 O2 Del Method 11/11/22 03:11 O2 Flow Rate 2 11/11/22 03:11 FiO2 100 11/10/22 08:33 Physical Exam Narrative: Active wheezing Lethargic and fatigued Obtunded Family at the bedside S1, S2 Upper airway secretions Morbidly obese Abdomen distended nontender Currently on facemask Urinary Catheter Management: Riojas: Cath Placed During This Visit: yes Reason for Continuing Indwelling Catheter: Acute Urinary Retention or Obstruction Urinary Catheter Date of Insertion: 11/09/22 Urinary Catheter Time of Insertion: 11:30 Data 11/10/22 03:41 11/10/22 03:41 A&P Assessment and plan (1) Hospice care: Plan Patient has been transitioned to inpatient hospice Dr. Bustillo will follow along now Family meetings conducted Patient is on hospice care for now Family meeting conducted today as well Attestations Medical Necessity Statement*: More than 2 midnights Coding Level of Care Code Acute Code for Chg Fwd Diagnoses Hospice care Z51.5
--- NOTE | 2022-11-11 08:15 | P.DS_ITS ---
Discharge Providers Date of Admission: 11/08/22 13:04 Date of Discharge: November 11, 2022 Attending Provider at Admission: Winnie Katz MD Attending Provider at Discharge: Brittni Kwan MD Primary Care Provider: Randall Solitario MD Diagnoses at Discharge Discharge Diagnosis (1) Collapse of left lung: Status: Acute (2) Gastric distention: Status: Acute (3) Recurrent vomiting: Status: Acute (4) Generalized anxiety disorder: Status: Chronic (5) Other schizophrenia: Status: Chronic (6) COPD (chronic obstructive pulmonary disease): Status: Chronic Qualifiers: COPD type: chronic bronchitis Chronic bronchitis type: unspecified Qualified Code(s): J42 - Unspecified chronic bronchitis (7) Acute exacerbation of chronic obstructive pulmonary disease: Status: Acute (8) Tremor: Status: Chronic (9) BMI 40.0-44.9, adult: Status: Chronic (10) Diastolic CHF: Status: Chronic (11) On home oxygen therapy: Status: Chronic Permanent problem details: 2.5 L (12) Dementia: Status: Chronic Reason for Visit Reason for Visit: SOB/ PRODUCTIVE COUGH Hospital Course Hospital Course 77 female came from a detention with COPD exacerbation, her wheezing was treated with IV steroids and budesonide, she was diagnosed with gastric distention/ileus required NG tube placement, patient was put on BiPAP when she was diagnosed with collapse of left lung most likely mucous plugging and atelectasis combination, patient and family did not agree with any aggressive intervention other than BiPAP, she was DNI/DNI, after multiple family meetings she was transitioned to hospice care because of poor quality of life, she was experiencing conversational dyspnea and did not want any aggressive intervention, Dr. Doc Bustillo consulted for inpatient hospice. Physical Exam Narrative: Active wheezing Attending Lethargic Morbidly obese Abdomen distended nontender D on facemask Urinary Catheter Management: Riojas: Cath Placed During This Visit: yes Reason for Continuing Indwelling Catheter: Acute Urinary Retention or Obstructio n Urinary Catheter Date of Insertion: 11/09/22 Urinary Catheter Time of Insertion: 11:30 Discharge Data Studies Completed and Pending Completed Studies During Hospitalization Category Date Time Status CT abdomen pelvis wo con [id number] Routine Cat Scan 11/09/22 10:18 Completed CXRP [XR chest 1V portable [id number]] NOW Exams 11/08/22 21:13 Completed CXRP [XR chest 1V portable [id number]] NOW Exams 11/08/22 22:50 Completed XR KUB portable [id number] Routine Exams 11/08/22 11:26 Completed XR chest 1V [id number] Stat Exams 11/10/22 02:18 Completed XR chest 1V portable [id number] Stat Exams 11/06/22 11:24 Completed CV. echo lmt wo/w con w color Routine Ultrasound 11/06/22 15:06 Completed Pending at discharge Category Date Time Status Blood Culture Stat Lab 11/06/22 11:45 Results Radiology Impressions KUB X-Ray 11/08/22 11:26 IMPRESSION: Very distended stomach. Abdomen/Pelvis CT 11/09/22 10:18 IMPRESSION: 1. No evidence of high-grade small or large bowel obstruction. Enteric tube with tip in in the 2nd portion the duodenum. 2. Sigmoid diverticulosis. No evidence of acute diverticulitis. 3. Mild gaseous distention of the transverse colon. 4. Urine distended bladder. 5. Compressive atelectasis in the LEFT lower lobe. Trace pleural fluid in the lung bases. 6. No other acute findings. Chest X-Ray 11/10/22 02:18 IMPRESSION: Collapse of the left lung which is new from comparison. Left pleural effusion not excluded. Laboratory Results WBC 18.6 10^3/uL (4.0-10.0) H 11/10/22 03:41 RBC 5.23 10^6/uL (4.1-5.3) 11/10/22 03:41 Hgb 14.4 g/dL (11.5-15.3) 11/10/22 03:41 Hct 44.6 % (37.0-47.0) 11/10/22 03:41 MCV 85.3 fl (81-99) 11/10/22 03:41 MCH 27.5 pg (28.0-34.0) L 11/10/22 03:41 MCHC 32.3 g/dL (30.0-36.0) 11/10/22 03:41 RDW 14.6 % (12.1-15.1) 11/10/22 03:41 Plt Count 265 10^3/cmm (130-400) 11/10/22 03:41 MPV 9.1 fL (7.4-10.4) 11/10/22 03:41 Neut % (Auto) 93.0 % 11/10/22 03:41 Lymph % (Auto) 2.5 % 11/10/22 03:41 [place] % (Auto) 3.8 % 11/10/22 03:41 Eos % (Auto) 0.1 % 11/10/22 03:41 Baso % (Auto) 0.1 % 11/10/22 03:41 Neut # (Auto) 17.28 10^3/uL (1.8-7.7) H 11/10/22 03:41 Lymph # (Auto) 0.5 10^3/uL (0.8-4.8) L 11/10/22 03:41 [place] # (Auto) 0.7 10^3/uL (0.2-0.9) 11/10/22 03:41 Eos # (Auto) 0.0 10^3/uL (0.0-0.8) 11/10/22 03:41 Baso # (Auto) 0.0 10^3/uL (0.0-0.1) 11/10/22 03:41 Nucleated RBC % (auto) 0 % 11/10/22 03:41 Nucleated RBCs # 0.0 /100WBC 11/10/22 03:41 D-Dimer 0.45 ug/mIFEU (0-0.59) 11/08/22 12:14 Specimen Type Arterial 11/10/22 02:10 Sample Site Radial, right 11/10/22 02:10 ABG pH 7.45 (7.35-7.45) 11/10/22 02:10 ABG pCO2 45.9 mmHg (35-45) H 11/10/22 02:10 ABG pO2 48.1 mmHg (80.0-100.0) L 11/10/22 02:10 ABG HCO3 31.5 mmol/L (22-26) H 11/10/22 02:10 ABG Base Excess 6.3 mmol/L (-2.0-2.0) H 11/10/22 02:10 Wu Test Pos 11/10/22 02:10 Hematocrit 46.6 % (37-47) 11/10/22 02:10 O2 Delivery Device Nrb 11/10/22 02:10 O2 Liters/Min 15.0 % 11/10/22 02:10 FiO2 99.0 % 11/10/22 02:10 Department Editor ID [email or web address] 11/10/22 02:10 Sodium 136 mmol/L (136-145) 11/10/22 03:41 Potassium 3.3 mmol/L (3.5-5.1) L 11/10/22 03:41 Chloride 96 mmol/L (98-107) L 11/10/22 03:41 Carbon Dioxide 29 mmol/L (22-29) 11/10/22 03:41 Anion Gap 14.3 (5-19) 11/10/22 03:41 BUN 28 mg/dL (8-23) H 11/10/22 03:41 Creatinine 0.6 mg/dL (0.5-0.9) 11/10/22 03:41 GFR Calculation Not Reportable 11/10/22 03:41 Glucose 147 mg/dL (65-115) H 11/10/22 03:41 Calculated Osmolality 290 mOsm/kg (285-295) 11/10/22 03:41 Lactic Acid 1.2 mmol/L (0.5-2.2) 11/06/22 11:45 Calcium 8.9 mg/dL (8.5-10.5) 11/10/22 03:41 Phosphorus 2.7 mg/dL (2.5-4.5) 11/07/22 04:37 Magnesium 2.2 mg/dL (1.7-2.3) 11/07/22 04:37 Total Bilirubin 0.3 mg/dL (0.15-1.2) 11/06/22 10:45 AST 32 U/L (0-32) 11/06/22 10:45 ALT 25 U/L (0-33) 11/06/22 10:45 Alkaline Phosphatase 166 U/L (35-105) H 11/06/22 10:45 Troponin T Gen 5 ng/L 13 ng/L (0-10) H 11/08/22 12:14 Troponin T Baseline 11 ng/L (0-10) H 11/06/22 10:45 Troponin T 120 Minute 9.48 ng/L (0-10) 11/06/22 12:45 Delta Troponin T -1.52 ABS# (0-10) L 11/06/22 12:45 Troponin T Hi Sens 6Hr 9.65 ng/L (0-10) 11/06/22 16:50 Troponin T Hi Sens 6Hr Delta -1.35 ng/L (0-12) L 11/06/22 16:50 NT-Pro-B Natriuret Pep 1188 pg/mL (0-450) H 11/10/22 03:41 Total Protein 6.5 g/dL (6.6-8.7) L 11/06/22 10:45 Albumin 3.9 g/dL (3.5-5.2) 11/06/22 10:45 Globulin 2.6 g/dL (1.3-4.6) 11/06/22 10:45 Influenza Type A Ag negative (Negative) 11/06/22 11:39 Influenza Type B Ag negative (Negative) 11/06/22 11:39 Vitals Last Vital Signs Temp 98.3 F 11/10/22 20:00 Pulse 107 H 11/11/22 03:11 Resp 30 H 11/11/22 06:14 BP 107/74 11/10/22 20:00 Pulse Ox 86 L 11/11/22 03:11 O2 Del Method 11/11/22 03:11 O2 Flow Rate 2 11/11/22 03:11 FiO2 100 11/10/22 08:33 Discharge Plan Discharge Patient Disposition: Hospice - Medical Facility Condition: Stable Prescriptions: Continued tramadol 50 mg tablet 100 mg PO Q6H PRN (Reason: Pain) senna 8.6 mg capsule 8.6 mg PO TID PRN (Reason: Constipation) pantoprazole 40 mg tablet,delayed release (DR/EC) 40 mg PO DAILY@0700 bisacodyl 10 mg suppository 10 mg MT DAILY PRN (Reason: Constipation) magnesium hydroxide [Aguilar Milk of Magnesia] 400 mg/5 mL suspension 30 ml PO DAILY PRN (Reason: Constipation) aspirin [Adult Low Dose Aspirin] 81 mg tablet,delayed release (DR/EC) 81 mg PO DAILY@07 benztropine 0.5 mg tablet 0.5 mg PO BID@ loratadine [Allergy Relief (loratadine)] 10 mg tablet 10 mg PO DAILY@07 montelukast 10 mg tablet 10 mg PO DAILY@07 multivitamin Tablet 1 tab PO DAILY@07 sucralfate 1 gram tablet 1 gm PO BID@ acetaminophen [Tylenol] 325 mg capsule 650 mg PO TID@07,,19 gabapentin 300 mg capsule 300 mg PO BID@, spironolactone 25 mg tablet 25 mg PO BID@, aripiprazole [Abilify] 10 mg tablet 10 mg PO DAILY@07 albuterol sulfate 2.5 mg /3 mL (0.083 %) solution for nebulization 2.5 mg inhalation Q4H Rx Instructions: @02:00,06:00,10:00,14:00,18:00,22:00 potassium chloride 20 mEq tablet extended release 20 meq PO DAILY@07 buspirone 7.5 mg tablet 7.5 mg PO BID@, ondansetron HCl 4 mg tablet 4 mg PO Q4H PRN (Reason: Nausea And Vomiting) morphine concentrate 100 mg/5 mL (20 mg/mL) solution 20 mg sublingual DIRECTED PRN (Reason: Pain/SOB) 14 Days Qty: 30 0RF Rx Instructions: 0.25ml-1ml q1H PRN may increase to 0.5ml-1ml Q1H PRN bisacodyl 10 mg suppository 10 mg MT DAILY PRN (Reason: constipation) Qty: 5 0RF Rx Instructions: 1 suppository per rectum every day PRN for constipation. atropine 1 % drops 4 drp sublingual Q4H PRN (Reason: secretions) Qty: 5 0RF Rx Instructions: 4 drops SL q 4 hours PRN for terminal congestion/excessive secretions. ondansetron 4 mg tablet,disintegrating 4 mg translingual Q4H PRN (Reason: nausea) Qty: 5 0RF Rx Instructions: Dissolve 1 tablet under tongue every 4 hours PRN for nausea lorazepam 2 mg/mL concentrate 2 mg sublingual Q4H PRN (Reason: Anxiety/Seizure) Qty: 30 0RF Rx Instructions: 0.25ml-1ml q4H PRN Anxiety/Seizure Start 0.25ml may increase to 0.5ml-1ml q4H clonazepam 0.25 mg Tablet,Disintegrating 0.25 mg PO DAILY@07 roflumilast [Daliresp] 500 mcg Tablet 500 mcg PO DAILY@07 Throat [place] 1.4 % Aerosol,[place] See Rx Instructions .ROUTE .COMPLEX Rx Instructions: use as directed as needed albuterol sulfate [ProAir HFA] 90 mcg/actuation Hfa Aerosol Inhaler 2 puff INHALATION Q4H PRN (Reason: Wheezing) budesonide [Pulmicort] 0.5 mg/2 mL suspension for nebulization 0.5 mg inhalation BID@, albuterol sulfate 2.5 mg /3 mL (0.083 %) solution for nebulization 2.5 mg inhalation DAILY PRN (Reason: Shortness Of Breath) nystatin 100,000 unit/gram ointment See Rx Instructions .ROUTE .COMPLEX Rx Instructions: apply to affected topically every 12 hours as needed for rash Ultram 50 mg Tablet 50 mg PO Q6H PRN (Reason: Pain) nystatin 100,000 unit/gram cream See Rx Instructions .ROUTE .COMPLEX Rx Instructions: apply to groin under bl breast topically every 12 hours as needed for yeast skin diclofenac sodium 1 % gel See Rx Instructions .ROUTE .COMPLEX Rx Instructions: apply to affected area topically every shift (apply to bl knees and bl hands) furosemide 40 mg tablet 40 mg PO DAILY@07 tolterodine 4 mg capsule,extended release 24hr 4 mg PO DAILY@07 prazosin 1 mg capsule 1 mg PO BEDTIME@ sennosides [senna] 8.6 mg Tablet 8.6 mg PO BID@, guaifenesin [Tussin] 100 mg/5 mL Liquid 200 mg PO Q4H PRN (Reason: Cough) Enema Disposable 19-7 gram/118 mL Enema 118 ml MT DAILY PRN (Reason: Constipation) lactulose 10 gram/15 mL solution 60 ml PO BID PRN (Reason: Constipation) ipratropium-albuterol 0.5 mg-3 mg(2.5 mg base)/3 mL solution for nebulization 3 ml inhalation QID Rx Instructions: USE AT 08,12,16,20 Discharge Orders: Discharge Order (Routine); Ordered 11/11/22 Ordered By: Brittni Kwan Referrals: Randall Solitario MD [Primary Care Provider] - Discharge Attestations Time Spent in Discharge Care*: less than 30 min Status at Discharge: Cognitive status at discharge: moderately impaired cognition , Behavioral status at discharge: cooperative , Quality Metrics Clinical Quality Measures [ No reported AMI, CVA or VTE this stay] Coding Level of Care Code Acute Code for Chg Fwd Diagnoses Collapse of left lung J98.11 Gastric distention K31.89 Recurrent vomiting R11.10 Generalized anxiety disorder F41.1 Other schizophrenia F20.89 COPD (chronic obstructive pulmonary disease) J42 COPD type: chronic bronchitis Chronic bronchitis type: unspecified Acute exacerbation of chronic obstructive pulmonary disease J44.1 Tremor R25.1 BMI 40.0-44.9, adult Z68.41 Diastolic CHF I50.30 On home oxygen therapy Z99.81 Dementia F03.90
[2022-11-11] MEDS: glycopyrrolate 0.2 mg/mL SDV 2 mL IV ×2 (12:20→20:28)
--- NOTE | 2022-11-11 13:10 | PC.SOCIAL ---
Pg 2 IMM Explained to pt's family, Pg 2 IMM. No questions voiced. Provided family a copy. Initialed, dated, & timed a copy & placed in chart.
[2022-11-11] MEDS: diclofenac 1% Topical Gel 100 gm 1 APPLIC TOPICAL (17:41)
[2022-11-12] MEDS: LORazepam 2 mg/mL INJ 1 mL 1 MG IVP ×2 (00:05→08:48)
[2022-11-12] MEDS: glycopyrrolate 0.2 mg/mL SDV 2 mL IV ×5 (00:09→20:56)
[2022-11-12 03:50] VITALS: RESP 18
[2022-11-12] MEDS: morphine 4 mg/mL SDV 1 mL IVP ×3 (03:50→12:01)
[2022-11-12] MEDS: diclofenac 1% Topical Gel 100 gm 1 APPLIC TOPICAL (06:38)
[2022-11-12 09:33] VITALS: RESP 22
[2022-11-12 12:01] VITALS: RESP 18
--- NOTE | 2022-11-12 12:07 | PM.DCS ---
Discharge Providers Date of Admission: 11/08/22 13:04 Date of Discharge: November 12, 2022 Attending Provider at Admission: Winnie Katz MD Attending Provider at Discharge: Brittni Kwan MD Primary Care Provider: Randall Solitario MD Diagnoses at Discharge Discharge Diagnosis (1) Hospice care: Status: Acute Reason for Visit Reason for Visit: SOB/ PRODUCTIVE COUGH Hospital Course Hospital Course 77 female came from a [facility] with COPD exacerbation, her wheezing was treated with IV steroids and budesonide, she was diagnosed with gastric distention/ileus required NG tube placement, patient was put on BiPAP when she was diagnosed with collapse of left lung most likely mucous plugging and atelectasis combination, patient and family did not agree with any aggressive intervention other than BiPAP, she was DNI/DNI, after multiple family meetings she was transitioned to hospice care because of poor quality of life, she was experiencing conversational dyspnea and did not want any aggressive intervention, Dr. Doc Bustillo consulted for inpatient hospice. Family had decided to take her to [facility] and continue hospice care instead of staying in the hospital. Physical Exam Narrative: Patient is obtunded Nonverbal Requiring oxygen Upper airway secretions Abdomen distended Neuro exam is limited Urinary Catheter Management: Riojas: Cath Placed During This Visit: yes Reason for Continuing Indwelling Catheter: Hospice/Comfort/Palliative Care Urinary Catheter Date of Insertion: 11/09/22 Urinary Catheter Time of Insertion: 11:30 Discharge Data Studies Completed and Pending Completed Studies During Hospitalization Category Date Time Status CT abdomen pelvis wo con [id number] Routine Cat Scan 11/09/22 10:18 Completed CXRP [XR chest 1V portable [id number]] NOW Exams 11/08/22 21:13 Completed CXRP [XR chest 1V portable [id number]] NOW Exams 11/08/22 22:50 Completed XR KUB portable [id number] Routine Exams 11/08/22 11:26 Completed XR chest 1V [id number] Stat Exams 11/10/22 02:18 Completed XR chest 1V portable [id number] Stat Exams 11/06/22 11:24 Completed CV. echo lmt wo/w con w color Routine Ultrasound 11/06/22 15:06 Completed Radiology Impressions KUB X-Ray 11/08/22 11:26 IMPRESSION: Very distended stomach. Abdomen/Pelvis CT 11/09/22 10:18 IMPRESSION: 1. No evidence of high-grade small or large bowel obstruction. Enteric tube with tip in in the 2nd portion the duodenum. 2. Sigmoid diverticulosis. No evidence of acute diverticulitis. 3. Mild gaseous distention of the transverse colon. 4. Urine distended bladder. 5. Compressive atelectasis in the LEFT lower lobe. Trace pleural fluid in the lung bases. 6. No other acute findings. Chest X-Ray 11/10/22 02:18 IMPRESSION: Collapse of the left lung which is new from comparison. Left pleural effusion not excluded. Laboratory Results WBC 18.6 10^3/uL (4.0-10.0) H 11/10/22 03:41 RBC 5.23 10^6/uL (4.1-5.3) 11/10/22 03:41 Hgb 14.4 g/dL (11.5-15.3) 11/10/22 03:41 Hct 44.6 % (37.0-47.0) 11/10/22 03:41 MCV 85.3 fl (81-99) 11/10/22 03:41 MCH 27.5 pg (28.0-34.0) L 11/10/22 03:41 MCHC 32.3 g/dL (30.0-36.0) 11/10/22 03:41 RDW 14.6 % (12.1-15.1) 11/10/22 03:41 Plt Count 265 10^3/cmm (130-400) 11/10/22 03:41 MPV 9.1 fL (7.4-10.4) 11/10/22 03:41 Neut % (Auto) 93.0 % 11/10/22 03:41 Lymph % (Auto) 2.5 % 11/10/22 03:41 Chase % (Auto) 3.8 % 11/10/22 03:41 Eos % (Auto) 0.1 % 11/10/22 03:41 Baso % (Auto) 0.1 % 11/10/22 03:41 Neut # (Auto) 17.28 10^3/uL (1.8-7.7) H 11/10/22 03:41 Lymph # (Auto) 0.5 10^3/uL (0.8-4.8) L 11/10/22 03:41 Chase # (Auto) 0.7 10^3/uL (0.2-0.9) 11/10/22 03:41 Eos # (Auto) 0.0 10^3/uL (0.0-0.8) 11/10/22 03:41 Baso # (Auto) 0.0 10^3/uL (0.0-0.1) 11/10/22 03:41 Nucleated RBC % (auto) 0 % 11/10/22 03:41 Nucleated RBCs # 0.0 /100WBC 11/10/22 03:41 D-Dimer 0.45 ug/mIFEU (0-0.59) 11/08/22 12:14 Specimen Type Arterial 11/10/22 02:10 Sample Site Radial, right 11/10/22 02:10 ABG pH 7.45 (7.35-7.45) 11/10/22 02:10 ABG pCO2 45.9 mmHg (35-45) H 11/10/22 02:10 ABG pO2 48.1 mmHg (80.0-100.0) L 11/10/22 02:10 ABG HCO3 31.5 mmol/L (22-26) H 11/10/22 02:10 ABG Base Excess 6.3 mmol/L (-2.0-2.0) H 11/10/22 02:10 Wu Test Pos 11/10/22 02:10 Hematocrit 46.6 % (37-47) 11/10/22 02:10 O2 Delivery Device Nrb 11/10/22 02:10 O2 Liters/Min 15.0 % 11/10/22 02:10 FiO2 99.0 % 11/10/22 02:10 Pathology Manager ID [email or web address] 11/10/22 02:10 Sodium 136 mmol/L (136-145) 11/10/22 03:41 Potassium 3.3 mmol/L (3.5-5.1) L 11/10/22 03:41 Chloride 96 mmol/L (98-107) L 11/10/22 03:41 Carbon Dioxide 29 mmol/L (22-29) 11/10/22 03:41 Anion Gap 14.3 (5-19) 11/10/22 03:41 BUN 28 mg/dL (8-23) H 11/10/22 03:41 Creatinine 0.6 mg/dL (0.5-0.9) 11/10/22 03:41 GFR Calculation Not Reportable 11/10/22 03:41 Glucose 147 mg/dL (65-115) H 11/10/22 03:41 Calculated Osmolality 290 mOsm/kg (285-295) 11/10/22 03:41 Lactic Acid 1.2 mmol/L (0.5-2.2) 11/06/22 11:45 Calcium 8.9 mg/dL (8.5-10.5) 11/10/22 03:41 Phosphorus 2.7 mg/dL (2.5-4.5) 11/07/22 04:37 Magnesium 2.2 mg/dL (1.7-2.3) 11/07/22 04:37 Total Bilirubin 0.3 mg/dL (0.15-1.2) 11/06/22 10:45 AST 32 U/L (0-32) 11/06/22 10:45 ALT 25 U/L (0-33) 11/06/22 10:45 Alkaline Phosphatase 166 U/L (35-105) H 11/06/22 10:45 Troponin T Gen 5 ng/L 13 ng/L (0-10) H 11/08/22 12:14 Troponin T Baseline 11 ng/L (0-10) H 11/06/22 10:45 Troponin T 120 Minute 9.48 ng/L (0-10) 11/06/22 12:45 Delta Troponin T -1.52 ABS# (0-10) L 11/06/22 12:45 Troponin T Hi Sens 6Hr 9.65 ng/L (0-10) 11/06/22 16:50 Troponin T Hi Sens 6Hr Delta -1.35 ng/L (0-12) L 11/06/22 16:50 NT-Pro-B Natriuret Pep 1188 pg/mL (0-450) H 11/10/22 03:41 Total Protein 6.5 g/dL (6.6-8.7) L 11/06/22 10:45 Albumin 3.9 g/dL (3.5-5.2) 11/06/22 10:45 Globulin 2.6 g/dL (1.3-4.6) 11/06/22 10:45 Influenza Type A Ag negative (Negative) 11/06/22 11:39 Influenza Type B Ag negative (Negative) 11/06/22 11:39 Vitals Last Vital Signs Temp 98.1 F 11/11/22 20:00 Pulse 105 H 11/11/22 20:00 Resp 18 11/12/22 12:01 BP 109/74 11/11/22 20:00 Pulse Ox 96 11/11/22 20:00 O2 Del Method 11/11/22 12:00 O2 Flow Rate 15 11/11/22 21:18 FiO2 100 11/10/22 08:33 Discharge Plan Discharge Patient Disposition: Hospice - Medical Facility Condition: Serious Prescriptions: Continued magnesium hydroxide [Aguilar Milk of Magnesia] 400 mg/5 mL suspension 30 ml PO DAILY PRN (Reason: Constipation) morphine concentrate 100 mg/5 mL (20 mg/mL) solution 20 mg sublingual DIRECTED PRN (Reason: Pain/SOB) 14 Days Qty: 30 0RF Rx Instructions: 0.25ml-1ml q1H PRN may increase to 0.5ml-1ml Q1H PRN ondansetron 4 mg tablet,disintegrating 4 mg translingual Q4H PRN (Reason: nausea) Qty: 5 0RF Rx Instructions: Dissolve 1 tablet under tongue every 4 hours PRN for nausea lorazepam 2 mg/mL concentrate 2 mg sublingual Q4H PRN (Reason: Anxiety/Seizure) Qty: 30 0RF Rx Instructions: 0.25ml-1ml q4H PRN Anxiety/Seizure Start 0.25ml may increase to 0.5ml-1ml q4H Discontinued tramadol 50 mg tablet 100 mg PO Q6H PRN (Reason: Pain) senna 8.6 mg capsule 8.6 mg PO TID PRN (Reason: Constipation) pantoprazole 40 mg tablet,delayed release (DR/EC) 40 mg PO DAILY@0700 bisacodyl 10 mg suppository 10 mg MT DAILY PRN (Reason: Constipation) aspirin [Adult Low Dose Aspirin] 81 mg tablet,delayed release (DR/EC) 81 mg PO DAILY@07 benztropine 0.5 mg tablet 0.5 mg PO BID@07,19 loratadine [Allergy Relief (loratadine)] 10 mg tablet 10 mg PO DAILY@07 montelukast 10 mg tablet 10 mg PO DAILY@07 multivitamin Tablet 1 tab PO DAILY@07 sucralfate 1 gram tablet 1 gm PO BID@, acetaminophen [Tylenol] 325 mg capsule 650 mg PO TID@,, gabapentin 300 mg capsule 300 mg PO BID@, spironolactone 25 mg tablet 25 mg PO BID@, aripiprazole [Abilify] 10 mg tablet 10 mg PO DAILY@07 albuterol sulfate 2.5 mg /3 mL (0.083 %) solution for nebulization 2.5 mg inhalation Q4H Rx Instructions: @02:00,06:00,10:00,14:00,18:00,22:00 potassium chloride 20 mEq tablet extended release 20 meq PO DAILY@07 buspirone 7.5 mg tablet 7.5 mg PO BID@, ondansetron HCl 4 mg tablet 4 mg PO Q4H PRN (Reason: Nausea And Vomiting) bisacodyl 10 mg suppository 10 mg MT DAILY PRN (Reason: constipation) Qty: 5 0RF Rx Instructions: 1 suppository per rectum every day PRN for constipation. atropine 1 % drops 4 drp sublingual Q4H PRN (Reason: secretions) Qty: 5 0RF Rx Instructions: 4 drops SL q 4 hours PRN for terminal congestion/excessive secretions. clonazepam 0.25 mg Tablet,Disintegrating 0.25 mg PO DAILY@07 roflumilast [Daliresp] 500 mcg Tablet 500 mcg PO DAILY@07 Throat [place] 1.4 % Aerosol,[place] See Rx Instructions .ROUTE .COMPLEX Rx Instructions: use as directed as needed albuterol sulfate [ProAir HFA] 90 mcg/actuation Hfa Aerosol Inhaler 2 puff INHALATION Q4H PRN (Reason: Wheezing) budesonide [Pulmicort] 0.5 mg/2 mL suspension for nebulization 0.5 mg inhalation BID@,19 albuterol sulfate 2.5 mg /3 mL (0.083 %) solution for nebulization 2.5 mg inhalation DAILY PRN (Reason: Shortness Of Breath) nystatin 100,000 unit/gram ointment See Rx Instructions .ROUTE .COMPLEX Rx Instructions: apply to affected topically every 12 hours as needed for rash Ultram 50 mg Tablet 50 mg PO Q6H PRN (Reason: Pain) nystatin 100,000 unit/gram cream See Rx Instructions .ROUTE .COMPLEX Rx Instructions: apply to groin under bl breast topically every 12 hours as needed for yeast skin diclofenac sodium 1 % gel See Rx Instructions .ROUTE .COMPLEX Rx Instructions: apply to affected area topically every shift (apply to bl knees and bl hands) furosemide 40 mg tablet 40 mg PO DAILY@07 tolterodine 4 mg capsule,extended release 24hr 4 mg PO DAILY@07 prazosin 1 mg capsule 1 mg PO BEDTIME@19 sennosides [senna] 8.6 mg Tablet 8.6 mg PO BID@07,19 guaifenesin [Tussin] 100 mg/5 mL Liquid 200 mg PO Q4H PRN (Reason: Cough) Enema Disposable 19-7 gram/118 mL Enema 118 ml MT DAILY PRN (Reason: Constipation) lactulose 10 gram/15 mL solution 60 ml PO BID PRN (Reason: Constipation) ipratropium-albuterol 0.5 mg-3 mg(2.5 mg base)/3 mL solution for nebulization 3 ml inhalation QID Rx Instructions: USE AT 08,12,16,20 Discharge Orders: Discharge Order (Routine); Ordered 11/11/22 Ordered By: Brittni Kwan Referrals: Randall Solitario MD [Primary Care Provider] - Discharge Attestations Time Spent in Discharge Care*: less than 30 min Status at Discharge: Cognitive status at discharge: moderately impaired cognition, Behavioral status at discharge: cooperative, Quality Metrics Clinical Quality Measures [ No reported AMI, CVA or VTE this stay] Coding Level of Care Code Acute Code for [facility] Fwd Diagnoses Hospice care Z51.5
--- NOTE | 2022-11-12 12:54 | P.PN_ITS ---
Subjective Subjective: Called by Joe miller head assistant wet process that patient was uncomfortable and family had concerns. NOTE: With family permission I had a telemedicine visit with them. It was audio/video for them, my side was only audio. I was able to speak with and hear Ms Llamas. She did say she was a little short of breath and she wasn't certain about pain. Joe RN described use of accessory muscles and visual discomfort. I spoke with son Jose Rafael, his and Pt's sister Alexus. I explained the goals of hospice and specifically the goal of GIP. After explanation of achieving comfort as goal they understood the requirement to decrease oxygen level and increase amount of morphine and ativan for comfort. Jose Rafael feels strongly that Patient benefits from glycoprrolate. We will need to order that medication for sublingual use at [facility]. Medications: Medication Review Details: I made multiple changes and cleaned up the list. Vitals/I&O/Wt Last Vital Signs Temp 98.1 F 11/11/22 20:00 Pulse 105 H 11/11/22 20:00 Resp 18 11/12/22 12:01 BP 109/74 11/11/22 20:00 Pulse Ox 96 11/11/22 20:00 O2 Del Method 11/11/22 12:00 O2 Flow Rate 15 11/11/22 21:18 FiO2 100 11/10/22 08:33 11/11/22 11/12/22 11/12/22 22:59 06:59 14:59 Intake Total 240 / 240 560 / 800 Output Total 750 / 940 Balance 240 / 50 -190 / -140 Physical Exam Narrative: Listening to Ms Llamas she had audible rhochi and increased RR. Urinary Catheter Management: Riojas: Cath Placed During This Visit: yes Reason for Continuing Indwelling Catheter: Hospice/Comfort/Palliative Care Urinary Catheter Date of Insertion: 11/09/22 Urinary Catheter Time of Insertion: 11:30 Data 11/10/22 03:41 11/10/22 03:41 Other Labs: not applicable Micro: Microbiology 11/06/22 11:45 Blood Culture - Final Blood NO GROWTH AFTER 5 DAYS 11/06/22 11:54 Blood Culture - Final Blood NO GROWTH AFTER 5 DAYS A&P Assessment and plan (1) Dyspnea: Pt is experiencing dyspnea and secretion. Ordered Roxanol 10 mg sl q3H scheduled and 10 mg sl q30 min prn. Ordered ativan 1 mg sl q3H scheduled and 1 mg sl q30 min prn. (2) Pain: roxanol as above Plan Patients goal is to go home to [facility]. Inorder to meet that goal our hospice team will need to provide further comfort for patient and to decrease amount of oxygen to less than 6 L. Talked with Joe miller head assistant wet process, Yeni bedside RN and pharmacist about changes and goals of care/medications. All questions answered. Patients medication were adjusted to comfort measures only. She will receive one more dose of steroids tomorrow. If patient can swallow I will order oral steroids or if available liquid steroids to return to [facility] on. And again, glycoprrolate will need ordered in sl form. Pt meets GIP criteria due to uncontrolled symptoms with need of frequent monitoring and dose adjustment. Total time spent with pt/family and speaking with RN's and pharmacist was 61 minutes. Attestations Medical Necessity Statement*: Pt meets GIP criteria due to uncontrolled symptoms with need of frequent monitoring and dose adjustment. Coding Level of Care Code Acute Code for [facility] Fwd Diagnoses Dyspnea R06.00 Pain R52
[2022-11-12] MEDS: morphine 10 mg/0.5 mL oral liq UD PO ×11 (12:56→23:45)
[2022-11-12] MEDS: LORazepam 2 mg/mL oral liquid (mL) 1 MG PO ×7 (13:11→22:51)
[2022-11-12] MEDS: ondansetron 2 mg/ML SDV 2 mL 4 MG IVP (17:14)
[2022-11-12] MEDS: ARIPiprazole 10 mg Tablet PO (19:48)
[2022-11-12] MEDS: BuSPIRONE 10 mg Tablet 7.5 MG PO (19:48)
[2022-11-12 20:44] VITALS: BP 134/85; PULSE 82; RESP 17; TEMP 36.2; O2SAT 90
[2022-11-13] MEDS: LORazepam 2 mg/mL oral liquid (mL) 1 MG PO ×5 (01:41→12:43)
[2022-11-13] MEDS: glycopyrrolate 0.2 mg/mL SDV 2 mL IV (02:29)
[2022-11-13] MEDS: morphine 10 mg/0.5 mL oral liq UD PO ×4 (02:29→10:06)
[2022-11-13] MEDS: diclofenac 1% Topical Gel 100 gm 1 APPLIC TOPICAL (06:05)
[2022-11-13 08:39] VITALS: BP 150/81; PULSE 96; RESP 16; TEMP 36.9; O2SAT 90
[2022-11-13] MEDS: sennosides-docusate Tablet 1 TAB PO (10:08)
[2022-11-13] MEDS: ARIPiprazole 10 mg Tablet PO (10:08)
[2022-11-13] MEDS: BuSPIRONE 10 mg Tablet 7.5 MG PO (10:08)
--- NOTE | 2022-11-13 10:31 | PC.NURSE ---
[place]QUES [place]amontes[place] [facility] [place] and aware of patient [place] today.
[2022-11-13] MEDS: morphine 10 mg/0.5 mL oral liq UD 20 MG PO ×2 (10:42→12:43)
--- NOTE | 2022-11-13 12:56 | PC.SOCIAL ---
IMM Update pg 2 of IMM updated and reviewed w/ patients sister and son. Copy provided and Copy in chart dated and initialed.
== END 2022-11-13 13:00 | disposition hospice, home (50) | DRG 190 ==
LOC: ER 15:32 → MEDSURG 16:26
PROVIDERS: Student in an Organized Health Care Education/Training Program; Admitting Provider Hospitalist; Emergency Provider Family Medicine; PCP Family Medicine; Visit Provider Internal Medicine
DX: J44.0 Chronic obstructive pulmonary disease with (acute) lower respiratory infection (principal); I50.33 Acute on chronic diastolic (congestive) heart failure; J96.21 Acute and chronic respiratory failure with hypoxia; E87.1 Hypo-osmolality and hyponatremia; Z68.41 Body mass index [BMI] 40.0-44.9, adult; J98.19 Other pulmonary collapse; J44.1 Chronic obstructive pulmonary disease with (acute) exacerbation; J20.9 Acute bronchitis, unspecified; I11.0 Hypertensive heart disease with heart failure; M81.0 Age-related osteoporosis without current pathological fracture; F03.90 Unspecified dementia, unspecified severity, without behavioral disturbance, psychotic disturbance, mood disturbance, and anxiety; Z87.891 Personal history of nicotine dependence; F41.1 Generalized anxiety disorder; E66.01 Morbid (severe) obesity due to excess calories; F43.10 Post-traumatic stress disorder, unspecified; F25.0 Schizoaffective disorder, bipolar type; R25.1 Tremor, unspecified; Z79.51 Long term (current) use of inhaled steroids; Z79.82 Long term (current) use of aspirin; Z79.891 Long term (current) use of opiate analgesic; R14.0 Abdominal distension (gaseous); Z99.81 Dependence on supplemental oxygen; M17.12 Unilateral primary osteoarthritis, left knee; F34.1 Dysthymic disorder; Z51.5 Encounter for palliative care; Z99.3 Dependence on wheelchair; Z66 Do not resuscitate; K21.9 Gastro-esophageal reflux disease without esophagitis; N32.81 Overactive bladder; R00.0 Tachycardia, unspecified
CPT/HCPCS: 36415; 36600; 51702; 71045; 74018; 74176; 80048; 80053; 82803; 83605; 83735; 83880; 84100; 84484; 85025; 85378; 87040; 87804; 93005; 93325; 94640; 94660; 96372; 96374; 99285; C8924; G0378; J1650; J1940; J2060; J2270; J2405; J2920; J2930; J3490; J7121; J7613; J7614; J7626; J7644; Q9956